=== PATIENT | female | born 1945 | race Caucasian/White ===

== ENCOUNTER 2017-07-21 08:51 | Inpatient (IN) | payer MEDICARE, OTHER ==
[2017-07-21] VITALS (7 sets, daily range): BP systolic 120–155; BP diastolic 74–87; PULSE 66–86; RESP 12–18; TEMP 96.5–98; O2SAT 94–100
[~2017-07-21] VITALS: Ht 170.2 cm; Wt 97.5 kg
[2017-07-21] MEDS ORDERED: APIX2.5T PO (09:28)
[2017-07-21] MEDS ORDERED: FURO40TA PO (09:28)
[2017-07-21] MEDS ORDERED: CARV3.125 PO (09:28)
[2017-07-21] MEDS ORDERED: ATOR10TA15 PO (09:28)
[2017-07-21] MEDS ORDERED: DICY10CA12 PO (09:28)
[2017-07-21] MEDS ORDERED: PROT40TA PO (09:28)
[2017-07-21] MEDS ORDERED: OXYC1CAP PO (09:28)
[2017-07-21] MEDS ORDERED: PLAV75TA29 PO (09:28)
--- NOTE | 2017-07-21 09:42 | PD ---
HPI Chief Complaint: Abdominal Pain Time Seen by Provider: 09:29 Travel History International Travel<30 days: No Contact w/Intl Traveler<30days: No Traveled to known affect area: No History of Present Illness HPI Patient is a 71-year-old female with history of abdominal pain starting in November of this year has presented multiple ERs for similar complaints, she just bent and axis of 2 weeks admitted at an outside hospital for same, had CAT scan of her abdomen hypotension required to stay in the ICU. She left the hospital on the , her states that her abdominal become more distended and she's had cramping no diarrhea nausea without vomiting and now starting to radiate up her chest which is her normal progression of symptoms. 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 This makes communication difficult , she does describe the pain as all over, severe, context as above, gradually worsening. Of note the patient had CAT scan her last admission causing acute kidney injury according to the . PFSH Past Medical History Hx Anticoagulant Therapy: Yes Congestive Heart Failure: Yes Diabetes: Yes Patient Takes Glucophage: Yes Deep Vein Thrombosis: Yes Genitourinary: Yes (Acute kidney failure) Medical other: Yes (Legally blind and [place]) Myocardial Infarction: Yes Triglycerides - High: Yes ?: Not Social History Alcohol Use: No Tobacco Use: No Substance Use: No Allergies-Medications (Allergen,Severity, Reaction): Coded Allergies: aspirin (Verified Allergy, Intermediate, hives, 07/21/17) Iodinated Contrast- Oral and IV Dye (Verified Adverse Reaction, Severe, kidney failure, 07/21/17) Reported Meds & Prescriptions Reported Meds & Active Scripts Active Reported Plavix (Clopidogrel Bisulfate) 75 Mg Tab 75 Mg PO DAILY Oxycodone (Oxycodone HCl) 5 Mg Cap 5 Mg PO Q8H PRN Protonix (Pantoprazole Sodium) 40 Mg Tab 40 Mg PO DAILY Furosemide 40 Mg Tab 40 Mg PO DAILY Dicyclomine (Dicyclomine HCl) 10 Mg Cap 10 Mg PO TID PRN Coreg (Carvedilol) 3.125 Mg Tab 3.125 Mg PO BID Atorvastatin (Atorvastatin Calcium) 10 Mg Tab 10 Mg PO HS Eliquis (Apixaban) 2.5 Mg Tab 2.5 Mg PO BID Review of Systems Except as stated in HPI: all other systems reviewed are Neg Physical Exam Narrative GENERAL: Well-developed obese, pale, uncomfortable appearance. Very hard of hearing and blind. SKIN: Focused skin assessment warm/dry. HEAD: Atraumatic. Normocephalic. EYES: Pupils equal and round dilated to about 6 mL. No scleral icterus. No injection or drainage. ENT: No nasal bleeding or discharge. Mucous membranes pink and moist. NECK: Trachea midline. No JVD. CARDIOVASCULAR: Regular rate and rhythm. No murmur appreciated. RESPIRATORY: No accessory muscle use. Clear to auscultation. Breath sounds equal bilaterally. No rales wheezes or rhonchi. GASTROINTESTINAL: Abdomen soft, non-tender, nondistended. Hepatic and splenic margins not palpable. MUSCULOSKELETAL: No obvious deformities. No clubbing. No cyanosis. 2+ pitting edema bilateral lower extremities from the knees distally. NEUROLOGICAL: Awake and alert. No obvious cranial nerve deficits. Motor grossly within normal limits. Normal speech. PSYCHIATRIC: Appropriate mood and affect; insight and judgment normal. Data Data Last Documented VS Vital Signs Date Time Temp Pulse Resp B/P (MAP) Pulse Ox O2 Delivery O2 Flow Rate FiO2 07/21/17 10:16 79 18 120/87 (98) 99 Room Air 07/21/17 08:56 98.0 Orders Orders Complete Blood Count With Diff (07/21/17 09:37) Comprehensive Metabolic Panel (07/21/17 09:37) Lipase (07/21/17 09:37) Lactic Acid (07/21/17 09:37) Urinalysis - C+S If Indicated (07/21/17 09:37) Iv Access Insert/Monitor (07/21/17 09:37) Ecg Monitoring (07/21/17 09:37) Oximetry (07/21/17 09:37) Sodium Chloride 0.9% Flush (Ns Flush) (07/21/17 09:45) Electrocardiogram (07/21/17 09:37) Troponin I (07/21/17 09:37) Act Partial Throm Time (Ptt) (07/21/17 09:37) Prothrombin Time / Inr (Pt) (07/21/17 09:37) Ed Poc Ultrasound (07/21/17 ) Ondansetron Inj (Zofran Inj) (07/21/17 10:00) Morphine Inj (Morphine Inj) (07/21/17 10:00) Urine Culture (07/21/17 10:11) Ct Abd/Pel W/O Iv Contrast (07/21/17 ) Chest, Single Ap (07/21/17 ) Admit To Inpatient (07/21/17 ) Vital Signs (Adult) ALEXIS.Q4H (07/21/17 12:57) Activity Bed Rest (07/21/17 12:57) Intake + Output 06,14,22 (07/21/17 12:57) Diet Npo (07/21/17 Lunch) Inpatient Certification (07/21/17 ) Ct Abd/Pel W Iv Contrast(Rout) (07/21/17 ) Sodium Chlorid 0.9% 500 Ml Inj (Ns 500 M (07/21/17 13:15) Iodixanol 320 Inj (Rad Ct) (Visipaque 32 (07/21/17 13:43) Consult Vascular Surgery (07/21/17 ) Admit Order (Ed Use Only) (07/21/17 ) Labs Laboratory Tests Test 07/21/17 09:46 07/21/17 10:11 White Blood Count 8.2 TH/MM3 Red Blood Count 3.40 MIL/MM3 Hemoglobin 11.2 GM/DL Hematocrit 34.1 % Mean Corpuscular Volume 100.4 FL Mean Corpuscular Hemoglobin 33.0 PG Mean Corpuscular Hemoglobin Concent 32.9 % Red Cell Distribution Width 22.3 % Platelet Count 394 TH/MM3 Mean Platelet Volume 9.1 FL Neutrophils (%) (Auto) 73.1 % Lymphocytes (%) (Auto) 14.5 % Monocytes (%) (Auto) 9.3 % Eosinophils (%) (Auto) 1.8 % Basophils (%) (Auto) 1.3 % Neutrophils # (Auto) 6.0 TH/MM3 Lymphocytes # (Auto) 1.2 TH/MM3 Monocytes # (Auto) 0.8 TH/MM3 Eosinophils # (Auto) 0.1 TH/MM3 Basophils # (Auto) 0.1 TH/MM3 CBC Comment DIFF FINAL Differential Comment Prothrombin Time 17.8 SEC Prothromb Time International Ratio 1.8 RATIO Activated Partial Thromboplast Time 35.5 SEC Blood Urea Nitrogen 26 MG/DL Creatinine 1.40 MG/DL Random Glucose 128 MG/DL Total Protein 7.2 GM/DL Albumin 3.4 GM/DL Calcium Level 8.9 MG/DL Alkaline Phosphatase 316 U/L Aspartate Amino Transf (AST/SGOT) 44 U/L Alanine Aminotransferase (ALT/SGPT) 112 U/L Total Bilirubin 1.2 MG/DL Sodium Level 138 MEQ/L Potassium Level 3.7 MEQ/L Chloride Level 101 MEQ/L Carbon Dioxide Level 24.9 MEQ/L Anion Gap 12 MEQ/L Estimat Glomerular Filtration Rate 37 ML/MIN Lactic Acid Level 2.5 mmol/L Troponin I 0.14 NG/ML Lipase 171 U/L Urine Color YELLOW Urine Turbidity HAZY Urine pH 5.0 Urine Specific [place] 1.012 Urine Protein TRACE mg/dL Urine Glucose (UA) NEG mg/dL Urine Ketones NEG mg/dL Urine Occult Blood NEG Urine Nitrite NEG Urine Bilirubin NEG Urine Urobilinogen LESS THAN 2.0 MG/DL Urine Leukocyte Esterase LARGE Urine RBC 1 /hpf Urine WBC 8 /hpf Urine WBC Clumps OCC Urine Squamous Epithelial Cells 2 /hpf Urine Transitional Epithelial Cells 1 /hpf Urine Amorphous Sediment OCC Urine Bacteria OCC /hpf Urine Hyaline Casts 27 /lpf Urine Mucus FEW /lpf Urine Yeast (Budding) FEW Microscopic Urinalysis Comment CULTURE INDICATED MDM Medical Decision Making Medical Screen Exam Complete: Yes Emergency Medical Condition: Yes Differential Diagnosis Ischemic bowel, chronic failure to thrive, chronic malnourishment, anemia, urinary tract infection, lecture led abnormality, dehydration, CHF. Narrative Course Patient roomed in emergency department, has never been our facility before, my initial impression this patient is a chronically ill patient, appears pale but is only mildly anemic, after morphine given some of her color has returned to her face and she appears more comfortable. The patient was sent for a noncontrast CT given the past she had contrast leading to acute kidney. Lactic acid minimally elevated the patient does need exclusion of vascular compromise to her mesentery, discussed with Dr. 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 At the same time her records from [facility] where also showing stenosis of the celiac artery was not amenable to additional intervention the patient was started on Eliquis. 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 If she is not a candidate for any aggressive intervention the patient may be a hospice candidate in the near future. This was discussed with Dr. Ceron who is in agreement and will be admitted to Dr. Buitrago. The patient was also discussed briefly with Dr. washington for his consultation likely there will be no surgical intervention. The patient will be admitted to [facility] in fair condition. Other significant findings were a troponin elevated at 2.17, nonischemic EKG, the patient is on Eliquis and is allergic to aspirin indicating any additional medications for possible and STEMI at this time. The review the records from outside sources does show the patient was admitted for NSTEMI there as well. Diagnosis Primary Impression: NSTEMI (non-ST elevated myocardial infarction) Additional Impressions: Celiac artery stenosis Abdominal pain CKD (chronic kidney disease) Anemia CHF (congestive heart failure) Admitting Information Admitting Physician Requests: Admit Condition: Amadeo Mendoza MD Jul 21, 2017 09:41
[2017-07-21] MEDS ORDERED: SODIUM CHLORIDE 0.9% FLUSH 10 ML FLUSH IV FLUSH PRN (09:45)
[2017-07-21] MEDS ORDERED: MORPHINE SULFATE 2 MG/ML INJ IV PUSH ONE (10:00)
[2017-07-21] MEDS ORDERED: ONDANSETRON HCL 4 MG/2 ML VIAL IV PUSH ONE (10:00)
[2017-07-21 10:02] LABS: BASOPHIL # 0.1 TH/MM3 (0-0.2); BASOPHIL % 1.3 % (0.0-2.0); EOSINOPHIL # 0.1 TH/MM3 (0-0.4); EOSINOPHIL % 1.8 % (0.0-4.0); HEMATOCRIT 34.1 % (35.0-46.0); HEMOGLOBIN 11.2 GM/DL (11.6-15.3); LYMPH % 14.5 % (9.0-44.0); LYMPHOCYTE # 1.2 TH/MM3 (1.0-4.8); MEAN CELL VOLUME 100.4 FL (80.0-100.0); MEAN CORPUSCULAR HGB CONC 32.9 % (32.0-36.0); MEAN PLATELET VOLUME 9.1 FL (7.0-11.0); MONO % 9.3 % (0.0-8.0); MONOCYTE # 0.8 TH/MM3 (0-0.9); NEUT % 73.1 % (16.0-70.0); PLATELET COUNT 394 TH/MM3 (150-450); RED CELL DISTRIBUTION WIDTH 22.3 % (11.6-17.2); WHITE BLOOD COUNT 8.2 TH/MM3 (4.0-11.0)
[2017-07-21 10:11] LABS: INTERNATIONAL NORMALIZED RATIO 1.8 RATIO; PROTHROMBIN TIME - PATIENT 17.8 SEC (9.8-11.6)
[2017-07-21 10:19] LABS: ALBUMIN 3.4 GM/DL (3.4-5.0); AST (GOT) 44 U/L (15-37); BICARBONATE 24.9 MEQ/L (21.0-32.0); BLOOD UREA NITROGEN 26 MG/DL (7-18); CALCIUM 8.9 MG/DL (8.5-10.1); CHLORIDE 101 MEQ/L (98-107); GLOMERULAR FILTRATION RATE 37 ML/MIN (>89); GLUCOSE,RANDOM 128 MG/DL (74-106); LIPASE 171 U/L (73-393); SODIUM (NA) 138 MEQ/L (136-145)
[2017-07-21 10:24] LABS: ALKALINE PHOSPHATASE 316 U/L (45-117); ALT (GPT) 112 U/L (10-53); TOTAL BILIRUBIN ADULT 1.2 MG/DL (0.2-1.0); TOTAL PROTEIN 7.2 GM/DL (6.4-8.2); TROPONIN I 0.14 NG/ML (0.02-0.05)
[2017-07-21 10:27] LABS: AMORPHOUS SEDIMENT, URINE OCC; BACTERIA, URINE OCC /hpf; BILIRUBIN, URINE NEG (NEG); BLOOD, URINE NEG (NEG); GLUCOSE,URINE NEG (NEG); HYALINE CAST, URINE 27 /lpf (RARE); KETONE, URINE NEG (NEG); MUCUS URINE FEW /lpf (OCC); NITRITE,URINE NEG (NEG); SQUAMOUS EPITHELIAL CELL URINE 2 /hpf (0-5); TRANSITIONAL EPI CELLS, URINE 1 /hpf; URINE COLOR YELLOW (YELLW/STRAW); URINE LEUKOCYTE ESTERASE LARGE (NEG); WHITE BLOOD CELL CLUMPS OCC
--- NOTE | 2017-07-21 11:51 | RADRPT ---
EXAM DATE/TIME: 07/21/2017 11:36 [facility] COMPARISON: No previous studies available for comparison. INDICATIONS : Abdominal pain. ORAL CONTRAST: No oral contrast ingested. RADIATION DOSE: 16.29 CTDIvol (mGy) MEDICAL HISTORY : Congestive heart failure. Diabetes mellitus type 2. SURGICAL HISTORY : None. ENCOUNTER: Initial ACUITY: 1 day PAIN SCALE: 8/10 LOCATION: abdomen TECHNIQUE: Volumetric scanning of the abdomen and pelvis was performed. Using automated exposure control and ad justment of the mA and/or kV according to patient size, radiation dose was kept as low as reasonably achievable to obtain optimal diagnostic quality images. DICOM format image data is available electro nically for review and comparison. FINDINGS: Minimal bibasilar parenchymal changes are evident. There is cardiomegaly moderate coronary calcifica tions. The liver and gallbladder are unremarkable Pancreas appears normal Right leg venogram is unremarkable There are no renal stones Moderate vascular chest lesions are noted There is no ascites or adenopathy Large fibroid uterus is evident. Pelvic contents are otherwise unremarkable. Moderate degenerative changes lower lumbar spine. CONCLUSION: Cardiomegaly with moderate coronary calcifications Moderate atherosclerotic vascular disease Otherwise negative.. Maximino Moy MD FACR on July 21, 2017 at 11:48 Board Certified Radiologist. This report was verified electronically.
--- NOTE | 2017-07-21 12:36 | RADRPT ---
EXAM DATE/TIME: 07/21/2017 11:57 [facility] COMPARISON: No previous studies available for comparison. INDICATIONS : Chest pain. MEDICAL HISTORY : Congestive heart failure. Diabetes mellitus type 2. SURGICAL HISTORY : None. ENCOUNTER: Initial ACUITY: 1 day PAIN SCORE: 5/10 LOCATION: Bilateral chest FINDINGS: Underated with elevation right hemidiaphragm. Bibasilar parenchymal changes. Mild cardiomegaly with out failure. CONCLUSION: Underated, of compensated cardiomegaly. Maximino Moy MD FACR on July 21, 2017 at 12:34 Board Certified Radiologist. This report was verified electronically.
[2017-07-21] MEDS ORDERED: SODIUM CHLORID 0.9% 500 ML INJ 500 ML IV ONE (13:15)
[2017-07-21] MEDS ORDERED: IODIXANOL 320 MG/ML 10 ML VIAL (for Rad CT) IVCONTRAST ONE (13:43)
--- NOTE | 2017-07-21 14:38 | RADRPT ---
EXAM DATE/TIME: 07/21/2017 13:31 [facility] COMPARISON: No previous studies available for comparison. INDICATIONS : Abdominal pain. IV CONTRAST: 50 cc Visipaque (iodixanol) IV ORAL CONTRAST: No oral contrast ingested. RADIATION DOSE: 20.45 CTDIvol (mGy) ; Patient body habitus MEDICAL HISTORY : Cardiovascular disease. Diabetes mellitus type 2. SURGICAL HISTORY : None. ENCOUNTER: Subsequent ACUITY: 1 day PAIN SCALE: 5/10 LOCATION: abdomen TECHNIQUE: Volumetric scanning of the abdomen and pelvis was performed. Using automated exposure control and ad justment of the mA and/or kV according to patient size, radiation dose was kept as low as reasonably achievable to obtain optimal diagnostic quality images. DICOM format image data is available electro nically for review and comparison. FINDINGS: There is cardiomegaly and moderate coronary calcifications. Small bilateral pleural effusions are ev ident. The liver and spleen are unremarkable Pancreas appears normal Extensive vascular calcifications are evident with high-grade stenosis origin of the celiac. The SMA is patent. Mild atherosclerotic disease is seen in the distal branches of the SMA but I can see vas cular contrast into the distal mesentery. There is no mesenteric edema. There is no bowel wall edema. There is no pneumatosis. Moderate calcifications are seen origin of both right and left renal arteries There is no free fluid Fibroid uterus is evident Generalized anasarca is noted. Degenerative changes lower lumbar spine. CONCLUSION: High-grade stenosis origin of the celiac SMA widely patent. Good distal flow. Bilateral renal origin calcifications, borderline significant borderline significant. Cardiomegaly with trace pericardial effusions Generalized anasarca. Congestive failure would be consideration. Maximino Moy MD FACR on July 21, 2017 at 14:34 Board Certified Radiologist. This report was verified electronically.
[2017-07-21] MEDS ORDERED: GLUCAGON 1 MG/ML VIAL OTHER PRN (15:45)
[2017-07-21] MEDS ORDERED: DEXTROSE 50% IN WATER 50 ML VIAL(D50) IV PUSH PRN (15:45)
[2017-07-21] MEDS ORDERED: ACETAMINOPHEN/HYDROcodone 325 MG/5 MG TAB PO PRN (16:00)
--- NOTE | 2017-07-21 16:00 | HHI.HP ---
[facility] Service Family Medicine Primary Care Physician Lorenzo Oviedo MD Admission Diagnosis NSTEMI, CP, Abdominal pain. Diagnoses: International Travel<30 Days: No Contact w/Intl Traveler<30days: No Known Affected Area: No History of Present Illness Mrs. Melton is a 71-year-old white female with a PMH of CAD, DVT, CHF presenting with abdominal pain of a few years duration. She states that this started a few years ago. She was previously diagnosed with gastritis and indigestion. He describes his pain as a 10 out of 10 pain that feels like someone is twisting her insides that is located over her whole abdomen and radiates to her chest and down both arms. It is worse after eating only dinner and lasted throughout the night. It was made better with the medication that she had gotten in the ED. She tried to take Gaviscon and Carafate at home, but they did not work. Last night is the only time that it radiated into her chest. No vomiting but has nausea. She has not seen a GI doctor for her chronic abdominal pain. Of note, (per discharge summary) she was recently discharged from [facility] on 07/17 after a 17 day stay. There she had presented with abdominal pain and shortness of breath and found to have troponin elevation, acute on chronic renal failure, hyperkalemia, non-ST elevation SD. Initial CT also revealed peripheral vascular disease with severe stenosis of proximal celiac artery, but other arteries are patent. She also had an acute decompensated CHF, non-ST elevation SD. She required dialysis in view of progressive renal failure and hyperkalemia. She was evaluated by GI for her ongoing abdominal pain and she was found to have a gallstone. No intervention was done at that time and she was to follow-up as an outpatient. She was also noticed to have increased LFTs. She started on statin that was DC'd and then put on a lower dose. They also believe that the increased LFT could be secondary to hepatic congestion. She was put on Plavix and Eliquis for severe peripheral vascular disease and greater saphenous thrombosis. 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, left arm CHF-does not see a functional manager Diabetes Cataracts Kidney injury from iodinated contrast Past Surgical History Cataract removal Retinal surgery 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 foot in August 2016 Left lower extremity vascular angioplasty and stent placement Reported Medications Reported Meds & Active Scripts Active Reported Plavix (Clopidogrel Bisulfate) 75 Mg Tab 75 Mg PO DAILY Oxycodone (Oxycodone HCl) 5 Mg Cap 5 Mg PO Q8H PRN Protonix (Pantoprazole Sodium) 40 Mg Tab 40 Mg PO DAILY Furosemide 40 Mg Tab 40 Mg PO DAILY Dicyclomine (Dicyclomine HCl) 10 Mg Cap 10 Mg PO TID PRN Coreg (Carvedilol) 3.125 Mg Tab 3.125 Mg PO BID Atorvastatin (Atorvastatin Calcium) 10 Mg Tab 10 Mg PO HS Eliquis (Apixaban) 2.5 Mg Tab 2.5 Mg PO BID (Marysol Patino MD R1) Allergies: Coded Allergies: aspirin (Verified Allergy, Intermediate, hives, 07/21/17) Iodinated Contrast- Oral and IV Dye (Verified Adverse Reaction, Severe, kidney failure, 07/21/17) Family History No family history relevant to this hospital stay Social History Lives with and daughter in [place], [place] 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 SKIN: No rashes or lesions. Ecchymoses on bilateral antecubital areas of arms and RLQ of abdomen. Cool and dry. HEAD: Atraumatic. Normocephalic. EYES: Pupils not equal round and not reactive. Extraocular motions intact. No scleral icterus. No injection or drainage. ENT: Nose without bleeding, purulent drainage or septal hematoma. Throat without erythema, tonsillar hypertrophy or exudate. Uvula midline. Airway patent. NECK: Trachea midline. No JVD or lymphadenopathy. Supple, nontender, no meningeal signs. CARDIOVASCULAR: distant heart sounds. Regular rate and rhythm without murmurs, gallops, or rubs. RESPIRATORY: Clear to auscultation. Breath sounds equal bilaterally. No wheezes , rales, or rhonchi. GASTROINTESTINAL: Abdomen soft, non-tender, nondistended. Normoactive bowel sounds. No hepato-splenomegaly, or palpable masses. No guarding. MUSCULOSKELETAL: Extremities without clubbing, cyanosis. 2+ pitting edema to bilateral mid shins. No joint tenderness, effusion, or edema noted. Toes amputated on left foot. Bilateral feet are cold to the touch. No pulses are palpable. NEUROLOGICAL: Drowsy, but arouses. Motor and sensory grossly within normal limits. Normal speech. Laboratory Laboratory Tests Test 07/21/17 09:46 07/21/17 10:11 White Blood Count 8.2 Red Blood Count 3.40 Hemoglobin 11.2 Hematocrit 34.1 Mean Corpuscular Volume 100.4 Mean Corpuscular Hemoglobin 33.0 Mean Corpuscular Hemoglobin Concent 32.9 Red Cell Distribution Width 22.3 Platelet Count 394 Mean Platelet Volume 9.1 Neutrophils (%) (Auto) 73.1 Lymphocytes (%) (Auto) 14.5 Monocytes (%) (Auto) 9.3 Eosinophils (%) (Auto) 1.8 Basophils (%) (Auto) 1.3 Neutrophils # (Auto) 6.0 Lymphocytes # (Auto) 1.2 Monocytes # (Auto) 0.8 Eosinophils # (Auto) 0.1 Basophils # (Auto) 0.1 CBC Comment DIFF FINAL Differential Comment Prothrombin Time 17.8 Prothromb Time International Ratio 1.8 Activated Partial Thromboplast Time 35.5 Blood Urea Nitrogen 26 Creatinine 1.40 Random Glucose 128 Total Protein 7.2 Albumin 3.4 Calcium Level 8.9 Alkaline Phosphatase 316 Aspartate Amino Transf (AST/SGOT) 44 Alanine Aminotransferase (ALT/SGPT) 112 Total Bilirubin 1.2 Sodium Level 138 Potassium Level 3.7 Chloride Level 101 Carbon Dioxide Level 24.9 Anion Gap 12 Estimat Glomerular Filtration Rate 37 Lactic Acid Level 2.5 Troponin I 0.14 Lipase 171 Urine Color YELLOW Urine Turbidity HAZY Urine pH 5.0 Urine Specific [place] 1.012 Urine Protein TRACE Urine Glucose (UA) NEG Urine Ketones NEG Urine Occult Blood NEG Urine Nitrite NEG Urine Bilirubin NEG Urine Urobilinogen LESS THAN 2.0 Urine Leukocyte Esterase LARGE Urine RBC 1 Urine WBC 8 Urine WBC Clumps OCC Urine Squamous Epithelial Cells 2 Urine Transitional Epithelial Cells 1 Urine Amorphous Sediment OCC Urine Bacteria OCC Urine Hyaline Casts 27 Urine Mucus FEW Urine Yeast (Budding) FEW Microscopic Urinalysis Comment CULTURE INDICATED Date/Time Source Procedure Growth Status 07/21/17 10:11 Urine Clean Catch Urine Culture Pending Received (Marysol Patino MD R1) Result Diagram: 07/21/17 0946 07/21/17 0946 Imaging Last 24 hours Impressions Chest X-Ray 07/21/17 0000 Signed Impressions: Service Date/Time: Friday, July 21, 2017 11:57 - CONCLUSION: Underated, of compensated cardiomegaly. Maximion Moy MD FACR Abdomen/Pelvis CT 07/21/17 0000 Signed Impressions: Service Date/Time: Friday, July 21, 2017 13:31 - CONCLUSION: High-grade stenosis origin of the celiac SMA widely patent. Good distal flow. Bilateral renal origin calcifications, borderline significant borderline significant. Cardiomegaly with trace pericardial effusions Generalized anasarca. Congestive failure would be consideration. Maximino Moy MD FACR Abdomen/Pelvis CT 07/21/17 0000 Signed Impressions: Service Date/Time: Friday, July 21, 2017 11:36 - CONCLUSION: Cardiomegaly with moderate coronary calcifications Moderate atherosclerotic vascular disease Otherwise negative.. Maximino Moy MD FACR (Marysol Patino MD R1) Caprini VTE Risk Assessment Caprini VTE Risk Assessment: Mod/High Risk (score >= 2) Caprini Risk Assessment Model Point Value = 1 Point Value = 2 Point Value = 3 Point Value = 5 Age 41-60 Minor surgery BMI > 25 kg/m2 Swollen legs Varicose veins or History of unexplained or recurrent spontaneous Oral contraceptives or hormone replacement Sepsis (< 1 month) Serious lung disease, including pneumonia (< 1 month) Abnormal pulmonary function Acute myocardial infarction Congestive heart failure (< 1 month) History of inflammatory bowel disease Medical patient at bed rest Age 61-74 Arthroscopic surgery Major open surgery (> 45 min) Laparoscopic surgery (> 45 min) Malignancy Confined to bed (> 72 hours) Immobilizing plaster cast Central venous access Age >= 75 History of VTE Family history of VTE Factor V Leiden Prothrombin [id number] Lupus anticoagulant Anticardiolipin antibodies Elevated serum homocysteine Heparin-induced thrombocytopenia Other congenital or acquired thrombophilia Stroke (< 1 month) Elective arthroplasty Hip, pelvis, or leg fracture Acute spinal cord injury (< 1 month) Prophylaxis Regimen Total Risk Factor Score Risk Level Prophylaxis Regimen 0-1 Low Early ambulation 2 Moderate Order ONE of the following: *Sequential Compression Device (SCD) *Heparin 5000 units SQ BID 3-4 Higher Order ONE of the following medications: *Heparin 5000 units SQ TID *Enoxaparin/Lovenox 40 mg SQ daily (WT < 150 kg, CrCl > 30 mL/min) *Enoxaparin/Lovenox 30 mg SQ daily (WT < 150 kg, CrCl > 10-29 mL/min) *Enoxaparin/Lovenox 30 mg SQ BID (WT < 150 kg, CrCl > 30 mL/min) AND/OR *Sequential Compression Device (SCD) 5 or more Highest Order ONE of the following medications: *Heparin 5000 units SQ TID (Preferred with Epidurals) *Enoxaparin/Lovenox 40 mg SQ daily (WT < 150 kg, CrCl > 30 mL/min) *Enoxaparin/Lovenox 30 mg SQ daily (WT < 150 kg, CrCl > 10-29 mL/min) *Enoxaparin/Lovenox 30 mg SQ BID (WT < 150 kg, CrCl > 30 mL/min) AND *Sequential Compression Device (SCD) (Marysol Patino MD R1) Assessment and Plan Assessment and Plan 71-year-old white female with past medical history of CHF as, peripheral artery disease, DVTs presenting with abdominal pain. Admitted for workup. Code Status Full code Discussed Condition With Dr. Ceron (Marysol Patino MD R1) Attending Attestation THIS CASE WAS DISCUSSED WITH THE RESIDENT PHYSICIANS. I HAVE REVIEWED THE RECORD AND AGREE WITH THE ABOVE NOTE AND PLAN OF CARE WAS DISCUSSED. I HAVE AUTHORIZED THE ORDER FOR ADMISSION TO AN IN-PATIENT STATUS. (Romario Babb MD) Problem List: (1) Abdominal pain ICD Codes: R10.9 - Unspecified abdominal pain Status: Chronic Plan: Abdominal pain appears duration. Patient was that most with a gallstone on previous admission to [facility], but was not found on CT during this stay. CTA on 07/21 shows high-grade stenosis origin of the celiac. SMA widely patent. 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 However, now has resolved. Patient had an NSTEMI at previous hospital admission at [facility] on 06/30/17. Elevated troponins may be residual from that stay. Troponin at admission is 0.14. EKG on admission shows sinus rhythm with borderline right axis deviation. Possible anterior myocardial infarction. Chest pain has resolved. * Continue to trend troponin 2 along with coinciding EKGs * Continue to monitor for any further signs of chest pain (4) UTI (urinary tract infection) ICD Codes: N39.0 - Urinary tract infection, site not specified Status: Acute Plan: UA on admission shows large leukocyte esterase, WBCs, WBC clumps, and occasional bacteria. * Urine culture pending * Will start on IV Rocephin 1 g daily (5) CHF (congestive heart failure) ICD Codes: I50.9 - Heart failure, unspecified Status: Chronic Plan: Patient received an echocardiogram at previous admission at [facility] on 06/30. Findings were severely decreased left ventricular systolic function. Estimated ejection fraction is 25-30%. BNP on admission 07/21 is 4958. * Repeat echocardiogram * Trend BNP * Continue home medication of carvedilol, furosemide, and atorvastatin (6) DVT (deep venous thrombosis) ICD Codes: I82.409 - Acute embolism and thrombosis of unspecified deep veins of unspecified lower extremity Plan: Patient with previously found greater saphenous vein thrombosis near deep vein junction. He has has been also states that she has blood clots in her left arm and right leg. * Continue at home Eliquis (7) Elevated LFTs ICD Codes: R79.89 - Other specified abnormal findings of blood chemistry Plan: Pt also had elevated LFTs at previous admission at [facility] on 06/30 thought to be due to her statin and therefore decreased the dose. Also thought that it could've been due to hepatic congestion. Her celiac artery stenosis may also cause her elevated LFTs due to the celiac trunk leading into the common hepatic artery. * Continue her decreased dose of atorvastatin at 10 mg * Trend LFTs (8) CKD (chronic kidney disease) ICD Codes: N18.9 - Chronic kidney disease, unspecified Status: Chronic Plan: Creatinine at admission is 1.4. At previous hospital stay at [facility] patient had to be on hemodialysis due to kidney injury from IV contrast. * Renally dose medications (9) Anemia ICD Codes: D64.9 - Anemia, unspecified Status: Chronic Plan: Upon admission patient's hemoglobin is 11.2, slightly below normal limits. Patient also shows macrocytosis with MCV at 100.4. * Continue to monitor (10) FEN Status: Acute Plan: Fluids: tolerating PO Electrolytes: monitor and replete as needed Nutrition: Clear liquid diet DVT Prophylaxis: Early ambulation. Continue at home Eliquis GI Prophylaxis: Pantoprazole Pain management: Renault 325-5 for Pain 3-5, [place] 325-10 for Pain 6-10 (Marysol Patino MD R1) Physician Certification 2 Midnight Certification Type: Admission for Inpatient Services Order for Inpatient Services The services are ordered in accordance with Medicare regulations or non- Medicare payer requirements, as applicable. In the case of services not specified as inpatient-only, they are appropriately provided as inpatient services in accordance with the 2-midnight benchmark. Estimated LOS (days): 2 days is the estimated time the patient will need to remain in the hospital, assuming treatment plan goals are met and no additional complications. Post-Hospital Plan: Home (Marysol Patino MD R1) Problem Qualifiers (1) Abdominal pain: Qualified Codes: R10.84 - Generalized abdominal pain Marysol Patino MD R1 Jul 21, 2017 16:00 Romario Babb MD Jul 23, 2017 09:09
[2017-07-21] MEDS: INSULIN ASPART SUPPLEMENTAL SCALE SQ SCH ×2 (16:21→21:00)
--- NOTE | 2017-07-21 18:21 | EKG ---
Date Performed: 07/21/2017 Time Performed: 09:52:31 PTAGE: 71 years EKG: Sinus rhythm BORDERLINE RIGHT AXIS DEVIATION POSSIBLE ANTERIOR MYOCARDIAL INFARCTION ABNORMAL ECG NO PREVIOUS TRACING DOCTOR: Aracelis Bah Interpretating Date/Time 07/21/2017 18:20:52
[2017-07-21 18:37] LABS: TROPONIN I 0.15 NG/ML (0.02-0.05)
--- NOTE | 2017-07-21 21:08 | EKG ---
Date Performed: 07/21/2017 Time Performed: 18:20:25 PTAGE: 71 years EKG: Sinus rhythm WITH OCCASIONAL ECTOPIC PREMATURE COMPLEXES, LOW QRS VOLTAGE IN EXTREMITY LEADS, POORP R WAVE PROGRE SSION ABNORMAL ECG PREVIOUS TRACING : 07/21/2017 09.52 No significant change from previous tracing noted. DOCTOR: Tutu Wright Interpretating Date/Time 07/21/2017 21:08:16
[2017-07-21] MEDS: APIXABAN 2.5 MG TABLET PO SCH (21:46)
[2017-07-21] MEDS: ATORVASTATIN 10 MG TAB PO SCH (21:46)
[2017-07-21] MEDS: CARVEDILOL 3.125 MG TAB PO SCH (21:46)
[2017-07-21] MEDS: cefTRIAXone INJ 1,000 MG in SODIUM CHLORIDE 0.9% INJ 100 ML IV SCH (21:50)
[2017-07-22] VITALS (13 sets, daily range): BP systolic 110–152; BP diastolic 56–81; PULSE 59–73; RESP 16–20; TEMP 97.2–98.7; O2SAT 94–99
[2017-07-22 00:48] LABS: ALT (GPT) 88 U/L (10-53); AST (GOT) 30 U/L (15-37); BICARBONATE 26.2 MEQ/L (21.0-32.0); BLOOD UREA NITROGEN 26 MG/DL (7-18); CALCIUM 8.3 MG/DL (8.5-10.1); CHLORIDE 104 MEQ/L (98-107); CREATININE 1.12 MG/DL (0.50-1.00); GLOMERULAR FILTRATION RATE 48 ML/MIN (>89); GLUCOSE,RANDOM 100 MG/DL (74-106); SODIUM (NA) 140 MEQ/L (136-145)
[2017-07-22 00:52] LABS: ALKALINE PHOSPHATASE 258 U/L (45-117); TOTAL PROTEIN 6.3 GM/DL (6.4-8.2); TROPONIN I 0.15 NG/ML (0.02-0.05)
[2017-07-22] MEDS ORDERED: POTASSIUM CHLORIDE 25 MEQ EFFERVESCENT TAB PO ONE (07:30)
[2017-07-22 07:40] LABS: HEMATOCRIT 33.6 % (35.0-46.0); HEMOGLOBIN 10.9 GM/DL (11.6-15.3); MEAN CELL VOLUME 99.5 FL (80.0-100.0); MEAN CORPUSCULAR HEMOGLOBIN 32.2 PG (27.0-34.0); MEAN CORPUSCULAR HGB CONC 32.3 % (32.0-36.0); PLATELET COUNT 256 TH/MM3 (150-450); RED BLOOD COUNT 3.38 MIL/MM3 (4.00-5.30); RED CELL DISTRIBUTION WIDTH 22.8 % (11.6-17.2)
[2017-07-22] MEDS: INSULIN ASPART SUPPLEMENTAL SCALE SQ SCH ×4 (08:00→21:10)
--- NOTE | 2017-07-22 08:24 | HHI.FPPN ---
Subjective Remarks FM Attending Note: Patient seen and examined. S: Chart and all resident physician notes reviewed. In summary this is a 71 year old female who was admitted with an admission diagnosis of Nstemi, Cp, Abdominal Pain. This patient has DM, PAD, CAD with recurrent chronic abdominal pain. Found to have celiac artery stenosis with widely patent SMA on CTA of abdomen. Since admission current episode abdominal pain has resolved. Patient was recently discharged from [facility] in [facility]. HHC was ordered but has not yet been established. and daugher with patient; would like for her to be discharged home with HHC when stable. They feel they can manage her functional needs. Family had a bad experience with a SNF in the past. Objective Vitals Vital Signs Date Time Temp Pulse Resp B/P (MAP) Pulse Ox O2 Delivery O2 Flow Rate FiO2 07/22/17 04:00 97.2 65 18 133/63 (86) 99 07/22/17 03:55 64 07/22/17 00:05 59 07/22/17 00:00 97.2 59 16 117/56 (76) 98 07/21/17 20:10 66 07/21/17 20:00 97.3 72 16 126/75 (92) 100 07/21/17 20:00 99 Nasal Cannula 2.00 07/21/17 18:00 96.5 71 12 155/87 (109) 99 07/21/17 14:29 77 18 153/74 (100) 98 Room Air 07/21/17 10:16 79 18 120/87 (98) 99 Room Air 07/21/17 10:03 18 98 Room Air 07/21/17 09:09 18 07/21/17 08:56 98.0 86 14 144/78 (100) 94 I/O 07/21/17 07/21/17 07/21/17 07/22/17 07/22/17 07/22/17 07:00 15:00 23:00 07:00 15:00 23:00 Intake Total 500 ml Output Total 400 ml Balance 500 ml -400 ml Intake IV Total 500 ml Output Urine Total 400 ml # Voids 2 # Bowel Movements 0 Result Diagram: 07/22/17 0700 07/21/172355 Other Results Item Value Date Time Total Bilirubin 1.0 MG/DL 07/21/172355 Aspartate Amino Transf (AST/SGOT) 30 U/L 07/21/17 2356 Alanine Aminotransferase (ALT/SGPT) 88 U/L H 07/21/17 2356 Alkaline Phosphatase 258 U/L H 07/21/17 2356 Total Creatine Kinase 25 U/L L 07/21/17 2356 Troponin I 0.15 NG/ML H 07/21/17 1750 Troponin I 0.15 NG/ML H 07/21/17 2356 Total Creatine Kinase 27 U/L 07/21/17 1750 B-Type Natriuretic Peptide 4958 PG/ML H 07/21/17 0946 Lipase 171 U/L 07/21/17 0946 Urine Specific [place] 1.012 07/21/17 1011 Urine Leukocyte Esterase LARGE H 07/21/17 1011 Urine RBC 1 /hpf 07/21/17 1011 Urine WBC 8 /hpf H 07/21/17 1011 Urine Nitrite NEG 07/21/17 1011 Imaging Last 48 hours Impressions Chest X-Ray 07/21/17 0000 Signed Impressions: Service Date/Time: Friday, July 21, 2017 11:57 - CONCLUSION: Underated, of compensated cardiomegaly. Maximino Moy MD FACR Abdomen/Pelvis CT 07/21/17 0000 Signed Impressions: Service Date/Time: Friday, July 21, 2017 13:31 - CONCLUSION: High-grade stenosis origin of the celiac SMA widely patent. Good distal flow. Bilateral renal origin calcifications, borderline significant borderline significant. Cardiomegaly with trace pericardial effusions Generalized anasarca. Congestive failure would be consideration. Maximino Moy MD FACR Abdomen/Pelvis CT 07/21/17 0000 Signed Impressions: Service Date/Time: Friday, July 21, 2017 11:36 - CONCLUSION: Cardiomegaly with moderate coronary calcifications Moderate atherosclerotic vascular disease Otherwise negative.. Maximino Moy MD FACR Objective Remarks O. CONSTITUTIONAL/GEN: normally nourished with increased BMI, in NAD. NECK: thyroid midline, carotids symmetrical. LUNGS: clear A-P, respiratory effort is normal. CARDIOVASCULAR: RR without murmur or gallop. Trace LE edema. GI/ABD: soft without masses, without organomegaly. : no CVA tenderness NEURO: No focal deficits. SKIN: color normal, no rashes noted. MUSC: back is normal in appearance. Extremities are normal in appearance; previous amputation of all left toes. PSYCH/MENTAL STATUS: Alert and awake; will respond appropriately to verbal questions.. A/P Assessment and Plan 71-year-old white female with past medical history of CHF as, peripheral artery disease, DVTs presenting with abdominal pain. Admitted for workup. Problem List: (1) Abdominal pain ICD Codes: R10.9 - Unspecified abdominal pain Status: Chronic Plan: Abdominal pain appears duration. Patient was that most with a gallstone on previous admission to [facility], but was not found on CT during this stay. CTA on 07/21 shows high-grade stenosis origin of the celiac. SMA widely patent. * Start patient on clear liquid diet, advance as tolerated * Unable to do fluid resuscitation because of patient's CHF * Pain control with [place] * Patient is already on anticoagulation therapy Eliquis, also on Plavix to prevent further thrombus formation * Continue at home pantoprazole 07/22/17 Discussed etiology of pain (ischemia) with patient and family. Limit meal size. Optimal medical therapy for atherosclerotic disease/DM> (2) Celiac artery stenosis ICD Codes: I77.4 - Celiac artery compression syndrome Status: Acute Plan: See plan above (3) NSTEMI (non-ST elevated myocardial infarction) ICD Codes: I21.4 - Non-ST elevation (NSTEMI) myocardial infarction Status: Acute Plan: Patient with chest pain last night into this morning. However, now has resolved. Patient had an NSTEMI at previous hospital admission at [facility] on 06/30/17. Elevated troponins may be residual from that stay. Troponin at admission is 0.14. EKG on admission shows sinus rhythm with borderline right axis deviation. Possible anterior myocardial infarction. Chest pain has resolved. * Continue to trend troponin 2 along with coinciding EKGs * Continue to monitor for any further signs of chest pain (4) UTI (urinary tract infection) ICD Codes: N39.0 - Urinary tract infection, site not specified Status: Acute Plan: UA on admission shows large leukocyte esterase, WBCs, WBC clumps, and occasional bacteria. * Urine culture pending * Will start on IV Rocephin 1 g daily (5) CHF (congestive heart failure) ICD Codes: I50.9 - Heart failure, unspecified Status: Chronic Plan: Patient received an echocardiogram at previous admission at [facility] on 06/30. Findings were severely decreased left ventricular systolic function. Estimated ejection fraction is 25-30%. BNP on admission 07/21 is 4958. * Repeat echocardiogram * Trend BNP * Continue home medication of carvedilol, furosemide, and atorvastatin (6) DVT (deep venous thrombosis) ICD Codes: I82.409 - Acute embolism and thrombosis of unspecified deep veins of unspecified lower extremity Plan: Patient with previously found greater saphenous vein thrombosis near deep vein junction. He has has been also states that she has blood clots in her left arm and right leg. * Continue at home Eliquis (7) Elevated LFTs ICD Codes: R79.89 - Other specified abnormal findings of blood chemistry Plan: Pt also had elevated LFTs at previous admission at [facility] on 06/30 thought to be due to her statin and therefore decreased the dose. Also thought that it could've been due to hepatic congestion. Her celiac artery stenosis may also cause her elevated LFTs due to the celiac trunk leading into the common hepatic artery. * Continue her decreased dose of atorvastatin at 10 mg * Trend LFTs (8) CKD (chronic kidney disease) ICD Codes: N18.9 - Chronic kidney disease, unspecified Status: Chronic Plan: Creatinine at admission is 1.4. At previous hospital stay at [facility] patient had to be on hemodialysis due to kidney injury from IV contrast. * Renally dose medications (9) Anemia ICD Codes: D64.9 - Anemia, unspecified Status: Chronic Plan: Upon admission patient's hemoglobin is 11.2, slightly below normal limits. Patient also shows macrocytosis with MCV at 100.4. * Continue to monitor (10) FEN Status: Acute Plan: Fluids: tolerating PO Electrolytes: monitor and replete as needed Nutrition: Clear liquid diet DVT Prophylaxis: Early ambulation. Continue at home Eliquis GI Prophylaxis: Pantoprazole Pain management: [place] 325-5 for Pain 3-5, [place] 325-10 for Pain 6-10 Problem Qualifiers (1) Abdominal pain: Qualified Codes: R10.84 - Generalized abdominal pain Romario Babb MD Jul 22, 2017 08:24
[2017-07-22] MEDS: FUROSEMIDE 40 MG TAB PO SCH (09:44)
[2017-07-22] MEDS: APIXABAN 2.5 MG TABLET PO SCH ×2 (09:44→21:08)
[2017-07-22] MEDS: CARVEDILOL 3.125 MG TAB PO SCH ×2 (09:44→21:09)
[2017-07-22] MEDS: CLOPIDOGREL 75 MG TAB PO SCH (09:45)
[2017-07-22] MEDS: PANTOPRAZOLE SOD 40 MG DELAYED RELEASE TAB PO SCH (09:45)
--- NOTE | 2017-07-22 12:08 | PD.CAR.PN ---
CVT Progress Note Subjective/Hospital Course: Patient seen full consult dictated Thanks J Objective: Vital Signs Date Time Temp Pulse Resp B/P (MAP) Pulse Ox O2 Delivery O2 Flow Rate FiO2 07/22/17 08:06 97.2 71 20 140/81 (100) 99 07/22/17 04:00 97.2 65 18 133/63 (86) 99 07/22/17 03:55 64 07/22/17 00:05 59 07/22/17 00:00 97.2 59 16 117/56 (76) 98 07/21/17 20:10 66 07/21/17 20:00 97.3 72 16 126/75 (92) 100 07/21/17 20:00 99 Nasal Cannula 2.00 07/21/17 18:00 96.5 71 12 155/87 (109) 99 07/21/17 14:29 77 18 153/74 (100) 98 Room Air Labs: Laboratory Tests Test 07/22/17 07:00 White Blood Count 7.0 TH/MM3 (4.0-11.0) Red Blood Count 3.38 MIL/MM3 (4.00-5.30) Hemoglobin 10.9 GM/DL (11.6-15.3) Hematocrit 33.6 % (35.0-46.0) Mean Corpuscular Volume 99.5 FL (80.0-100.0) Mean Corpuscular Hemoglobin 32.2 PG (27.0-34.0) Mean Corpuscular Hemoglobin Concent 32.3 % (32.0-36.0) Red Cell Distribution Width 22.8 % (11.6-17.2) Platelet Count 256 TH/MM3 (150-450) Mean Platelet Volume 9.0 FL (7.0-11.0) Hematology Comments B-Type Natriuretic Peptide 902 PG/ML (0-100) Result Diagram: 07/22/17 0700 07/21/17 2356 Jesus Blackwell MD Jul 22, 2017 12:08
--- NOTE | 2017-07-22 12:25 | MB ---
cc: JESUS WALLACE MD DATE OF CONSULTATION: 07/22/[address] Wallace, Vascular Surgery REASON FOR CONSULTATION Superior mesenteric artery stenosis, abdominal pain, possible intestinal ischemia. HISTORY OF PRESENT ILLNESS This 71-year-old lady presents to our ER with abdominal cramping pain that she states is 10 out of 10 and it is non-localized, it is in the whole abdomen up into her chest and both arms. The patient states that occurred after eating dinner last night and then with medication got better. The patient states she had several attacks of that pain before. It should be noted that she was admitted to [facility] on June 29 and was there until July 17, had a massive workup was found to have troponin elevation, chronic renal failure, hyperkalemia and non ST SC. She was also found to have decompensated CHF at that time. She was evaluated by every service including gastroenterology, found to have a gallstone which was noncontributory here. Now we are starting again the same work up here, I believe. PAST MEDICAL HISTORY 1. Longstanding diabetes mellitus. 2. Coronary artery disease. 3. Above-noted SC. 4. Congestive heart failure. 5. 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 6. Renal insufficiency. PAST SURGICAL HISTORY 1. Cataract removal. 2. Some foot surgery in August this year. The patient has been bedridden for almost a year now. MEDICATIONS Medications include: 1. Eliquis. 2. Plavix. 3. Coreg. 4. Oxycodone. 5. Lasix. ALLERGIES ASPIRIN, APPARENT IODINATED CONTRAST, although she received contrast recent. SOCIAL HISTORY The patient lives in [place]. Does not smoke, does not drink. PHYSICAL EXAMINATION GENERAL: A pleasant 71-year-old lady appearing much older than her actual age, somewhat pale and gaunt. HEENT: Normocephalic. No trauma to the head. Pupils are equal, reactive. Extraocular muscles cannot be tested. The patient is blind and has lateral gaze. NECK: Neck is supple. Bilateral carotid pulses. No bruits. CHEST: Bilateral breath sounds. HEART: Regular rhythm. ABDOMEN: Soft, patulous, active bowel sounds, somewhat distended but no rebound or guarding, no masses and the patient is really not tender at all on exam. No hernias. PELVIS: Pelvis is normal. BACK: Appears to be completely normal. EXTREMITIES: The patient is somewhat overweight but she has dopplerable pulses distally and palpable proximally, no signs of vascular deficit. 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 IMPRESSION AND RECOMMENDATIONS I reviewed laboratory and diagnostic procedures that I had here available from here and the other place. I am not sure why the patient has cramping, whether she has hyperactive bowel or maybe had some infection, either way everything is passing through and the patient is eating. It may be a dietary issue as well with intolerance to either glutens or something else. As far as the vascular picture is concerned the patient has celiac artery stenosis but the SMA and TAO are completely patent. It would be very unusual that the celiac stenosis in itself would be causing this much pain but not consistently. I am going to discuss this with interventional radiology and see if we can perhaps balloon dilate the celiac artery and see if that works. It should be noted this lady is very ill, has a low cardiac output and probably chronic hypoperfusion and any procedure we do has to be weighed against the patient's ability to tolerate it safely with some potential clear benefit. I have discussed this with family at length and explained to them how ill the patient is and she understands it as well. Thank you much for the referral. Jesus SIMS/FLOR /11:44 AM /11:53 AM
[2017-07-22] MEDS: ATORVASTATIN 10 MG TAB PO SCH (21:08)
[2017-07-22] MEDS: cefTRIAXone INJ 1,000 MG in SODIUM CHLORIDE 0.9% INJ 100 ML IV SCH (21:09)
[2017-07-23 03:26] VITALS: PULSE 68
[2017-07-23 04:04] VITALS: BP 132/73; PULSE 75; RESP 18; TEMP 97.2; O2SAT 95
[2017-07-23] MEDS: ACETAMINOPHEN/HYDROcodone 325 MG/10 MG TAB PO PRN ×2 (04:58→14:25)
[2017-07-23 07:36] LABS: AUTOMATED NEUTROPHIL # 5.1 TH/MM3 (1.8-7.7); BASOPHIL # 0.1 TH/MM3 (0-0.2); BASOPHIL % 1.3 % (0.0-2.0); EOSINOPHIL # 0.3 TH/MM3 (0-0.4); EOSINOPHIL % 3.5 % (0.0-4.0); HEMOGLOBIN 11.8 GM/DL (11.6-15.3); LYMPH % 17.7 % (9.0-44.0); LYMPHOCYTE # 1.3 TH/MM3 (1.0-4.8); MEAN CELL VOLUME 100.8 FL (80.0-100.0); MEAN CORPUSCULAR HEMOGLOBIN 32.9 PG (27.0-34.0); MEAN CORPUSCULAR HGB CONC 32.6 % (32.0-36.0); MONO % 9.7 % (0.0-8.0); MONOCYTE # 0.7 TH/MM3 (0-0.9); NEUT % 67.8 % (16.0-70.0); PLATELET COUNT 317 TH/MM3 (150-450); RED BLOOD COUNT 3.57 MIL/MM3 (4.00-5.30); RED CELL DISTRIBUTION WIDTH 22.8 % (11.6-17.2); WHITE BLOOD COUNT 7.5 TH/MM3 (4.0-11.0)
[2017-07-23 08:00] VITALS: BP 134/71; PULSE 70; RESP 18; TEMP 97.7; O2SAT 92
[2017-07-23] MEDS: INSULIN ASPART SUPPLEMENTAL SCALE SQ SCH ×2 (08:00→12:00)
[2017-07-23] MEDS: CLOPIDOGREL 75 MG TAB PO SCH (10:19)
[2017-07-23] MEDS: FUROSEMIDE 40 MG TAB PO SCH (10:19)
[2017-07-23] MEDS: PANTOPRAZOLE SOD 40 MG DELAYED RELEASE TAB PO SCH (10:19)
[2017-07-23] MEDS: APIXABAN 2.5 MG TABLET PO SCH (10:20)
--- NOTE | 2017-07-23 11:15 | HHI.FF ---
Face to Face Verification Diagnosis: (1) CHF (congestive heart failure) (2) Celiac artery stenosis (3) CKD (chronic kidney disease) (4) UTI (urinary tract infection) Physical Therapy Order: Evaluate and Treat Home Health Nursing Order: Medical education Signs/symptoms of disease process Diabetic education CHF education I have seen patient Claire Melton on 07/23/17. My clinical findings support the need for the requested home health care services because: Ltd mobility - disease progression Deconditioned w/ increased weakness Med compliance is questionable Limited ability to care for self High risk of falls I certify that my clinical findings support that this patient is homebound because: Unsteady gait/balance Poor cardiac reserve Vipin Ceron MD Jul 23, 2017 11:15
[2017-07-23] MEDS ORDERED: HYDR-3516 PO (11:17)
--- NOTE | 2017-07-23 11:27 | HHI.DCPOC ---
Discharge Care Plan Diagnosis: (1) Celiac artery stenosis (2) CHF (congestive heart failure) (3) DVT (deep venous thrombosis) (4) Anemia (5) CKD (chronic kidney disease) Goals to Promote Your Health * To prevent worsening of your condition and complications * To maintain your health at the optimal level Directions to Meet Your Goals Eat small, frequent meals to prevent belly pain Keep your appointment with Cardiology as arranged at your prior hospital stay No need to follow up with Dr. Rosales (vascular surgeon) Take your medications as prescribed Follow your dietary instruction Follow activity as directed Keep your appointments as scheduled Take your immunizations and boosters as scheduled If your symptoms worsen call your PCP, if no PCP go to Urgent Care Center or Emergency Room Smoking is Dangerous to Your Health. Avoid second hand smoke Call the 24-hour hour crisis hotline for domestic abuse at Vipin Ceron MD Jul 23, 2017 11:27
--- NOTE | 2017-07-23 11:31 | HHI.FPPN ---
Subjective Remarks Overnight had a flare of her abdominal pain. Feels better this morning, pain resolved after a single dose of Foley 10 mg. Denies CP/SOB. Feels ready to go home. (Vipin Ceron MD) Objective Vitals Vital Signs Date Time Temp Pulse Resp B/P (MAP) Pulse Ox O2 Delivery O2 Flow Rate FiO2 07/23/17 08:00 97.7 70 18 134/71 (92) 92 07/23/17 04:04 97.2 75 18 132/73 (92) 95 07/23/17 03:26 68 07/22/17 23:54 68 07/22/17 23:48 97.3 68 18 112/56 (74) 94 07/22/17 20:08 97.8 69 18 110/65 (80) 97 07/22/17 19:45 71 07/22/17 16:12 68 07/22/17 16:06 98.7 73 19 152/66 (94) 97 07/22/17 12:06 97.2 66 20 123/64 (83) 99 I/O 07/22/17 07/22/17 07/22/17 07/23/17 07/23/17 07/23/17 07:00 15:00 23:00 07:00 15:00 23:00 Intake Total 380 ml 0 ml Output Total 400 ml 0 ml Balance -400 ml 380 ml 0 ml Intake Oral 280 ml 0 ml IV Total 100 ml Output Urine Total 400 ml Stool Total 0 ml # Voids 3 4 # Bowel Movements 1 (Vipin Ceron MD) Result Diagram: 07/23/17 0657 07/21/17 2356 Imaging Last Impressions Chest X-Ray 07/21/17 0000 Signed Impressions: Service Date/Time: Friday, July 21, 2017 11:57 - CONCLUSION: Underated, of compensated cardiomegaly. Maximino Moy MD FACR Abdomen/Pelvis CT 07/21/17 0000 Signed Impressions: Service Date/Time: Friday, July 21, 2017 13:31 - CONCLUSION: High-grade stenosis origin of the celiac SMA widely patent. Good distal flow. Bilateral renal origin calcifications, borderline significant borderline significant. Cardiomegaly with trace pericardial effusions Generalized anasarca. Congestive failure would be consideration. Maximino Moy MD FACR Objective Remarks CONSTITUTIONAL/GEN: normally nourished with increased BMI, in NAD. LUNGS: clear A-P, respiratory effort is normal. CARDIOVASCULAR: RR without murmur or gallop. 2+ edema of BLE GI/ABD: soft NDNT without masses, without organomegaly. NEURO: No focal deficits SKIN: color normal, no rashes noted MUSC: back is normal in appearance. Extremities are normal in appearance; previous amputation of all left toes. PSYCH/MENTAL STATUS: Alert and awake; will respond appropriately to verbal questions Medications and IVs Current Medications Medications (Trade) Dose Ordered Sig/Lisbet Route Start Time Stop Time Status Last Admin (NS Flush) 2 ml UNSCH PRN IV FLUSH 07/21/17 09:45 (Eliquis) 2.5 mg BID PO 07/21/17 21:00 07/23/17 10:20 (Lipitor) 10 mg HS PO 07/21/17 21:00 07/22/17 21:08 (Coreg) 3.125 mg BID PO 07/21/17 21:00 07/22/17 21:09 (Plavix) 75 mg DAILY PO 07/22/17 09:00 07/23/17 10:19 (Lasix) 40 mg DAILY PO 07/22/17 09:00 07/23/17 10:19 (Protonix) 40 mg DAILY PO 07/22/17 09:00 07/23/17 10:19 (D50w (Vial) Inj) 50 ml UNSCH PRN IV PUSH 07/21/17 15:45 (Glucagon Inj) 1 mg UNSCH PRN OTHER 07/21/17 15:45 (NovoLOG SUPPLEMENTAL SCALE) 1 ACHS SLIDING SCALE SQ 07/21/17 17:00 07/22/17 21:10 (Foley 5-325 Mg) 1 tab Q4H PRN PO 07/21/17 16:00 07/21/17 22:04 (Foley 10-325 Mg) 1 tab Q4H PRN PO 07/21/17 16:00 07/23/17 04:58 Ceftriaxone Sodium 1000 mg/ Sodium Chloride 100 ml @ 200 mls/hr Q24H IV 07/21/17 20:00 07/22/17 21:09 (Vipin Ceron MD) A/P Assessment and Plan 71-year-old white female with past medical history of CHF as, peripheral artery disease, DVTs presenting with abdominal pain. Admitted for workup. Discharge Planning Home today (Vipin Ceron MD) Attending Attestation Patient seen and examined. Case reviewed and discussed with the resident team. Agree with plan of care as discussed with me and documented in the resident note. (Romario Babb MD) Problem List: (1) Abdominal pain ICD Codes: R10.9 - Unspecified abdominal pain Status: Chronic Plan: Abdominal pain overall improved though did have a flare last night Had gallstone on previous admission to [facility], but was not found on CT during this stay. CTA on 07/21 shows high-grade stenosis origin of the celiac. SMA widely patent. Likely diagnosis is chronic mesenteric ischemia versus passed gallstone * Advance to regular diet, discharge if tolerating well; small portions advised * Vascular surgery consulted, recs appreciated * May be candidate for stent placement but risks likely outweigh benefits. Available PRN. * Patient is already on anticoagulation therapy Eliquis, also on Plavix to prevent further thrombus formation * Continue at home pantoprazole (2) Celiac artery stenosis ICD Codes: I77.4 - Celiac artery compression syndrome Status: Acute Plan: See plan above (3) NSTEMI (non-ST elevated myocardial infarction) ICD Codes: I21.4 - Non-ST elevation (NSTEMI) myocardial infarction Status: Acute Plan: Patient with chest pain last night into this morning. However, now has resolved. Patient had an NSTEMI at previous hospital admission at [facility] on 06/30/17. Elevated troponins may be residual from that stay. Troponin at admission is 0.14. EKG on admission shows sinus rhythm with borderline right axis deviation. Possible anterior myocardial infarction. Chest pain has resolved. * F/u with PCP and cardiology (patient has appt arranged on the 07 of August) (4) UTI (urinary tract infection) ICD Codes: N39.0 - Urinary tract infection, site not specified Status: Acute Plan: Patient asymptomatic Routine UA on admission shows large leukocyte esterase, WBCs, WBC clumps, and occasional bacteria. Urine culture growing yeast species 25-50,000 units per mL * Given asymptomatic patient, this may very well just be contaminant * F/u with PCP (5) CHF (congestive heart failure) ICD Codes: I50.9 - Heart failure, unspecified Status: Chronic Plan: Patient received an echocardiogram at previous admission at [facility] on 06/30. Findings were severely decreased left ventricular systolic function. Estimated ejection fraction was 25-30%. BNP ~5000 --> 900s --> 2400 * F/u with cardiology as above * Continue home medication of carvedilol, furosemide, and atorvastatin (6) DVT (deep venous thrombosis) ICD Codes: I82.409 - Acute embolism and thrombosis of unspecified deep veins of unspecified lower extremity Plan: Patient with previously found greater saphenous vein thrombosis near deep vein junction. He has has been also states that she has blood clots in her left arm and right leg. * Continue home Eliquis (7) Elevated LFTs ICD Codes: R79.89 - Other specified abnormal findings of blood chemistry Plan: Pt also had elevated LFTs at previous admission at [facility] on 06/30 thought to be due to her statin and therefore decreased the dose. Also thought that it could've been due to hepatic congestion. Her celiac artery stenosis may also cause her elevated LFTs due to the celiac trunk leading into the common hepatic artery. * Continue her decreased dose of atorvastatin at 10 mg * Outpatient follow up as directed by PCP (8) CKD (chronic kidney disease) ICD Codes: N18.9 - Chronic kidney disease, unspecified Status: Chronic Plan: Creatinine at admission is 1.4. At previous hospital stay at [facility] patient had to be on hemodialysis due to kidney injury from IV contrast. * Cr on discharge 1.12 * F/u with PCP (9) Anemia ICD Codes: D64.9 - Anemia, unspecified Status: Chronic Plan: Upon admission patient's hemoglobin is 11.2, slightly below normal limits. Patient also shows macrocytosis with MCV at 100.4. * Continue to monitor (Vipin Ceron MD) Problem Qualifiers (1) Abdominal pain: Qualified Codes: R10.84 - Generalized abdominal pain (2) CHF (congestive heart failure): Qualified Codes: I50.9 - Heart failure, unspecified Vipin Ceron MD Jul 23, 2017 11:31 Romario Babb MD Jul 23, 2017 16:37
[2017-07-23 12:00] VITALS: BP 139/72; PULSE 76; RESP 20; TEMP 97.8; O2SAT 93
[2017-07-23] MEDS: CARVEDILOL 3.125 MG TAB PO SCH (14:25)
--- NOTE | 2017-07-23 14:41 | HHI.DS ---
Discharge Summary Admission Date Jul 21, 2017 at 14:02 Discharge Date: Jul 23, 2017 Admitting Diagnosis NSTEMI, CP, Abdominal pain. (1) Abdominal pain Diagnosis: Principal ICD Codes: R10.9 - Unspecified abdominal pain Status: Chronic (2) Celiac artery stenosis Diagnosis: Principal ICD Codes: I77.4 - Celiac artery compression syndrome Status: Acute (3) NSTEMI (non-ST elevated myocardial infarction) Diagnosis: Secondary ICD Codes: I21.4 - Non-ST elevation (NSTEMI) myocardial infarction Status: Acute (4) UTI (urinary tract infection) Diagnosis: Secondary ICD Codes: N39.0 - Urinary tract infection, site not specified Status: Acute (5) CHF (congestive heart failure) Diagnosis: Secondary ICD Codes: I50.9 - Heart failure, unspecified Status: Chronic (6) DVT (deep venous thrombosis) Diagnosis: Secondary ICD Codes: I82.409 - Acute embolism and thrombosis of unspecified deep veins of unspecified lower extremity (7) Elevated LFTs Diagnosis: Secondary ICD Codes: R79.89 - Other specified abnormal findings of blood chemistry (8) CKD (chronic kidney disease) Diagnosis: Secondary ICD Codes: N18.9 - Chronic kidney disease, unspecified Status: Chronic (9) Anemia Diagnosis: Secondary ICD Codes: D64.9 - Anemia, unspecified Status: Chronic Consultants Vascular Sx - Dr. Blackwell Brief History Mrs. Melton is a 71-year-old white female with a PMH of CAD, DVT, CHF presenting with abdominal pain of a few years duration. She states that this started a few years ago. She was previously diagnosed with gastritis and indigestion. He describes his pain as a 10 out of 10 pain that feels like someone is twisting her insides that is located over her whole abdomen and radiates to her chest and down both arms. It is worse after eating only dinner and lasted throughout the night. It was made better with the medication that she had gotten in the ED. She tried to take Gaviscon and Carafate at home, but they did not work. Last night is the only time that it radiated into her chest. No vomiting but has nausea. She has not seen a GI doctor for her chronic abdominal pain. Of note, (per discharge summary) she was recently discharged from [facility] on 07/17 after a 17 day stay. There she had presented with abdominal pain and shortness of breath and found to have troponin elevation, acute on chronic renal failure, hyperkalemia, non-ST elevation OR. Initial CT also revealed peripheral vascular disease with severe stenosis of proximal celiac artery, but other arteries are patent. She also had an acute decompensated CHF, non-ST elevation OR. She required dialysis in view of progressive renal failure and hyperkalemia. She was evaluated by GI for her ongoing abdominal pain and she was found to have a gallstone. No intervention was done at that time and she was to follow-up as an outpatient. She was also noticed to have increased LFTs. She started on statin that was DC'd and then put on a lower dose. They also believe that the increased LFT could be secondary to hepatic congestion. She was put on Plavix and Eliquis for severe peripheral vascular disease and greater saphenous thrombosis. CBC/BMP: 07/23/17 0657 07/21/17 2356 Significant Findings Laboratory Tests Test 07/21/17 09:46 07/21/17 10:11 07/21/17 17:50 07/21/17 23:56 Red Blood Count 3.40 MIL/MM3 (4.00-5.30) Hemoglobin 11.2 GM/DL (11.6-15.3) Hematocrit 34.1 % (35.0-46.0) Mean Corpuscular Volume 100.4 FL (80.0-100.0) Red Cell Distribution Width 22.3 % (11.6-17.2) Neutrophils (%) (Auto) 73.1 % (16.0-70.0) Monocytes (%) (Auto) 9.3 % (0.0-8.0) Prothrombin Time 17.8 SEC (9.8-11.6) Activated Partial Thromboplast Time 35.5 SEC (24.3-30.1) Blood Urea Nitrogen 26 MG/DL (7-18) 26 MG/DL (7-18) Creatinine 1.40 MG/DL (0.50-1.00) 1.12 MG/DL (0.50-1.00) Random Glucose 128 MG/DL (74-106) Alkaline Phosphatase 316 U/L (45-117) 258 U/L (45-117) Aspartate Amino Transf (AST/SGOT) 44 U/L (15-37) Alanine Aminotransferase (ALT/SGPT) 112 U/L (10-53) 88 U/L (10-53) Total Bilirubin 1.2 MG/DL (0.2-1.0) Estimat Glomerular Filtration Rate 37 ML/MIN (>89) 48 ML/MIN (>89) Lactic Acid Level 2.5 mmol/L (0.4-2.0) Troponin I 0.14 NG/ML (0.02-0.05) 0.15 NG/ML (0.02-0.05) 0.15 NG/ML (0.02-0.05) B-Type Natriuretic Peptide 4958 PG/ML (0-100) Urine Turbidity HAZY (CLEAR) Urine Leukocyte Esterase LARGE (NEG) Urine WBC 8 /hpf (0-5) Urine WBC Clumps OCC (NONE) Urine Bacteria OCC /hpf (NONE) Urine Mucus FEW /lpf (OCC) Urine Yeast (Budding) FEW (NONE) Total Protein 6.3 GM/DL (6.4-8.2) Albumin 3.0 GM/DL (3.4-5.0) Calcium Level 8.3 MG/DL (8.5-10.1) Potassium Level 3.4 MEQ/L (3.5-5.1) Total Creatine Kinase 25 U/L (26-192) Test 07/22/17 07:00 07/23/17 06:57 Red Blood Count 3.38 MIL/MM3 (4.00-5.30) 3.57 MIL/MM3 (4.00-5.30) Hemoglobin 10.9 GM/DL (11.6-15.3) Hematocrit 33.6 % (35.0-46.0) Red Cell Distribution Width 22.8 % (11.6-17.2) 22.8 % (11.6-17.2) B-Type Natriuretic Peptide 902 PG/ML (0-100) 2661 PG/ML (0-100) Mean Corpuscular Volume 100.8 FL (80.0-100.0) Monocytes (%) (Auto) 9.7 % (0.0-8.0) Imaging Last Impressions Chest X-Ray 07/21/17 0000 Signed Impressions: Service Date/Time: Friday, July 21, 2017 11:57 - CONCLUSION: Underated, of compensated cardiomegaly. Maximino Moy MD FACR Abdomen/Pelvis CT 07/21/17 0000 Signed Impressions: Service Date/Time: Friday, July 21, 2017 13:31 - CONCLUSION: High-grade stenosis origin of the celiac SMA widely patent. Good distal flow. Bilateral renal origin calcifications, borderline significant borderline significant. Cardiomegaly with trace pericardial effusions Generalized anasarca. Congestive failure would be consideration. Maximino Moy MD FACR PE at Discharge CONSTITUTIONAL/GEN: normally nourished with increased BMI, in NAD. LUNGS: clear A-P, respiratory effort is normal. CARDIOVASCULAR: RR without murmur or gallop. 2+ edema of BLE GI/ABD: soft NDNT without masses, without organomegaly. NEURO: No focal deficits SKIN: color normal, no rashes noted MUSC: back is normal in appearance. Extremities are normal in appearance; previous amputation of all left toes. PSYCH/MENTAL STATUS: Alert and awake; will respond appropriately to verbal questions Hospital Course 71 yo admitted with episodic abdominal pain usually after dinner. Found to have severe stenosis of celiac artery, no gallstone (though gallstones were noted on prior admission at [facility]). Pain improved with conservative care, very infrequent oral narcotic. Vascular surgery evaluated her and did not think her a surgical candidate due to her risk factors. She improved with slow advancement of diet and advisement to have small, frequent meals. Medically cleared for discharge with outpatient follow up. It is recommended she be on a higher-intensity statin but her LFTs will need to be monitored due to h/o liver injury on statins in the past. PCP to follow up. During hospitalization it was also noted that her urine grew yeast species, likely colonization rather than true infection. Pt Condition on Discharge: Good Discharge Disposition: Disch w/ Home Health Serv Discharge Instructions DIET: Follow Instructions for: As Tolerated, No Restrictions Activities you can perform: Regular-No Restrictions Follow up Referrals: PCP Follow-up - 2 Weeks New Medications: Hydrocodone/Acetaminophen (Hydrocodone-Acetamin 5-325 mg) 5 Mg-325 Mg Tablet 1 TAB PO Q4H PRN for BREAKTHROUGH PAIN, #10 Continued Medications: Apixaban (Eliquis) 2.5 Mg Tab 2.5 MG PO BID for Blood Clot Prevention, TAB 0 Refills Atorvastatin (Atorvastatin) 10 Mg Tab 10 MG PO HS for Cholesterol Management, #30 TAB 0 Refills Carvedilol (Coreg) 3.125 Mg Tab 3.125 MG PO BID, #60 TAB 0 Refills Clopidogrel (Plavix) 75 Mg Tab 75 MG PO DAILY for Blood Clot Prevention, #30 TAB 0 Refills Dicyclomine (Dicyclomine) 10 Mg Cap 10 MG PO TID PRN for Bowel Management, CAP 0 Refills Furosemide (Furosemide) 40 Mg Tab 40 MG PO DAILY, #30 TAB 0 Refills Pantoprazole (Protonix) 40 Mg Tab 40 MG PO DAILY for Reflux, #30 TAB 0 Refills Discontinued Medications: Oxycodone (Oxycodone) 5 Mg Cap 5 MG PO Q8H PRN for PAIN, CAP 0 Refills Vipin Ceron MD Jul 23, 2017 2:41 pm
--- NOTE | 2017-07-23 20:49 | ECHRPT ---
Indication: EF CHF CONCLUSIONS Normal left ventricular size. Wall thickness is normal. The left ventricular systolic function is severely reduced with an estimated ejection fraction in th e range of 25-30%. There is diffuse global hypokinesis. Mitral annular calcification is present. Sfpbhhrt-eg-obwakk mitral valve regurgitation. Aortic valve sclerosis is present. Mild aortic valve regurgitation. There is moderate tricuspid valve regurgitation. There is estimated rqtucyzs-rq-zdbgmr pulmonary hypertension present (66 mmHg). BP: 132 / 73 HR: 75 Rhythm: MEASUREMENTS (Male / Female) Normal Values Technical Quality: 2D ECHO LV Diastolic Diameter PLAX 4.6 cm 4.2 - 5.9 / 3.9 - 5.3 cm LV Systolic Diameter PLAX 4.2 cm IVS Diastolic Thickness 1.3 cm 0.6 - 1.0 / 0.6 - 0.9 cm LVPW Diastolic Thickness 1.0 cm 0.6 - 1.0 / 0.6 - 0.9 cm LV Relative Wall Thickness 0.5 RV Internal Dim ED PLAX 2.2 cm LA Systolic Diameter LX 4.0 cm 3.0 - 4.0 / 2.7 - 3.8 cm DOPPLER MR Peak Velocity 501.0 cm/s MR Peak Gradient 100.4 mmHg TR Peak Velocity 358.0 cm/s TR Peak Gradient 51.3 mmHg Right Atrial Pressure 15.0 mmHg Pulmonary Artery Systolic Pressu 66.3 mmHg Right Ventricular Systolic Press 66.3 mmHg FINDINGS LEFT VENTRICLE Normal left ventricular size. Wall thickness is normal. The left ventricular systolic function is severely reduced with an estimated ejection fraction in th e range of 25-30%. There is diffuse global hypokinesis. RIGHT VENTRICLE Normal right ventricular size and systolic function. LEFT ATRIUM The left atrial size is normal. RIGHT ATRIUM The right atrial size is normal. ATRIAL SEPTUM Normal atrial septal thickness without atrial level shunting by limited color doppler interrogation. AORTA The aortic root and proximal ascending aorta are normal in size on limited imaging. MITRAL VALVE Mitral annular calcification is present. Vsuavuzy-tx-gtoisu mitral valve regurgitation. AORTIC VALVE Aortic valve sclerosis is present. Mild aortic valve regurgitation. TRICUSPID VALVE There is moderate tricuspid valve regurgitation. There is estimated ewlxwdcg-ru-mkwhwp pulmonary hypertension present (66 mmHg). PULMONARY VALVE No pulmonary valve regurgitation or stenosis. VESSELS The inferior vena cava is normal in size. PERICARDIUM No pericardial effusion. Aracelis Bah MD, FACC (Electronically Signed) Final Date:23 July 2017 20:48
== END 2017-07-23 16:05 | disposition home health service (06) | DRG 391 ==
LOC: NEPE 08:51 → NEDA 14:02 → N04B 14:49
PROVIDERS: ADMIT Family Medicine; ATTEND Family Medicine
DX: I77.4 Celiac artery compression syndrome (principal); I21.4 Non-ST elevation (NSTEMI) myocardial infarction; E11.22 Type 2 diabetes mellitus with diabetic chronic kidney disease; N39.0 Urinary tract infection, site not specified; I50.9 Heart failure, unspecified; D64.9 Anemia, unspecified; N18.9 Chronic kidney disease, unspecified; H91.91 Unspecified hearing loss, right ear; H54.8 Legal blindness, as defined in USA; Z86.718 Personal history of other venous thrombosis and embolism; Z79.02 Long term (current) use of antithrombotics/antiplatelets; Z74.01 Bed confinement status; I73.9 Peripheral vascular disease, unspecified; I25.10 Atherosclerotic heart disease of native coronary artery without angina pectoris
CPT/HCPCS: 71010; 74176; 74177; 80053; 81001; 82310; 82550; 82948; 83605; 83690; 83880; 84484; 85025; 85027; 85610; 85730; 87086; 93005; 93308; 96374; 96375; J0696; J1815; J2270; J2405; J7040; Q9967

== ENCOUNTER 2017-07-30 08:56 | Inpatient (IN) | payer MEDICARE, OTHER ==
[~2017-07-30] VITALS: Ht 167.6 cm; Wt 89.5 kg
[~2017-07-30 08:56] MED LIST: APIX2.5T PO; ATOR10TA15 PO; CARV3.125 PO; DICY10CA12 PO; FURO40TA PO; HYDR-3516 PO; PLAV75TA29 PO; PROT40TA PO
[2017-07-30 09:02] VITALS: BP 169/110; PULSE 81; RESP 17; TEMP 98.7; O2SAT 96
--- NOTE | 2017-07-30 09:28 | PD ---
HPI Chief Complaint: Abdominal Pain Time Seen by Provider: 09:17 Travel History International Travel<30 days: No Contact w/Intl Traveler<30days: No Traveled to known affect area: No History of Present Illness HPI 71yo F with PMH of CAD, PVD, DVT on plavix and eliquis, CHF presents to the ED with c/o epigastric abdominal pain. Said it has been severe and intermittent since last night. 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 Vascular evaluated pt and did not think she is a surgical candidate and she was medically managed. Denies any fever, chest pain, n/v. Pt has chronic sob. PFSH Past Medical History Hx Anticoagulant Therapy: Yes Anxiety: No Depression: No Cancer: No Cardiovascular Problems: Yes Chest Pain: Yes Congestive Heart Failure: Yes Diabetes: Yes Patient Takes Glucophage: No Deep Vein Thrombosis: Yes Gastrointestinal Disorders: Yes Genitourinary: Yes (Acute kidney failure) Musculoskeletal: No Neurologic: No Respiratory: No Myocardial Infarction: Yes Triglycerides - High: Yes ?: Not Past Surgical History Eye Surgery: Yes (cataracts) Other Surgery: Yes Social History Alcohol Use: No Tobacco Use: No Substance Use: No Allergies-Medications (Allergen,Severity, Reaction): Coded Allergies: aspirin (Verified Allergy, Intermediate, hives, 07/30/17) Iodinated Contrast- Oral and IV Dye (Verified Adverse Reaction, Severe, kidney failure, 07/30/17) Reported Meds & Prescriptions Reported Meds & Active Scripts Active Hydrocodone-Acetamin 5-325 mg (Hydrocodone/Acetaminophen) 5 Mg-325 Mg Tablet 1 Tab PO Q4H PRN Reported Plavix (Clopidogrel Bisulfate) 75 Mg Tab 75 Mg PO DAILY Protonix (Pantoprazole Sodium) 40 Mg Tab 40 Mg PO DAILY Furosemide 40 Mg Tab 40 Mg PO DAILY Dicyclomine (Dicyclomine HCl) 10 Mg Cap 10 Mg PO TID PRN Coreg (Carvedilol) 3.125 Mg Tab 3.125 Mg PO BID Atorvastatin (Atorvastatin Calcium) 10 Mg Tab 10 Mg PO HS Eliquis (Apixaban) 2.5 Mg Tab 2.5 Mg PO BID Review of Systems Except as stated in HPI: all other systems reviewed are Neg Physical Exam Narrative GENERAL: 71yo F in mild distress. SKIN: Focused skin assessment warm/dry. HEAD: Atraumatic. Normocephalic. EYES: Pupils equal and round. No scleral icterus. No injection or drainage. . CARDIOVASCULAR: Regular rate and rhythm. No murmur appreciated. RESPIRATORY: No accessory muscle use. Clear to auscultation. Breath sounds equal bilaterally. GASTROINTESTINAL: Abdomen soft, +TTP epigastric region. No rebound tenderness or guarding. MUSCULOSKELETAL: No obvious deformities. No clubbing. No cyanosis. No edema. NEUROLOGICAL: Awake and alert. No obvious cranial nerve deficits. Motor grossly within normal limits. Normal speech. PSYCHIATRIC: Appropriate mood and affect; insight and judgment normal. Data Data Last Documented VS Vital Signs Date Time Temp Pulse Resp B/P (MAP) Pulse Ox O2 Delivery O2 Flow Rate FiO2 07/30/17 09:02 98.7 81 17 169/110 (129) 96 Orders Orders Complete Blood Count With Diff (07/30/17 09:28) Comprehensive Metabolic Panel (07/30/17 09:28) Lipase (07/30/17 09:28) Ct Abd/Pel W/O Iv Contrast (07/30/17 09:28) Urinalysis - C+S If Indicated (07/30/17 09:28) Urine Culture (07/30/17 09:45) Morphine Inj (Morphine Inj) (07/30/17 11:30) Electrocardiogram (07/30/17 ) Ceftriaxone Inj (Rocephin Inj) (07/30/17 13:15) Morphine Inj (Morphine Inj) (07/30/17 13:45) Admit Order (Ed Use Only) (07/30/17 13:53) Consult Gastroenterology (07/30/17 ) Place In Observation (07/30/17 ) Vital Signs (Adult) ALEXIS.Q4H (07/30/17 13:54) Activity Oob With Assistance (07/30/17 13:54) Proprietary Trader / Telemetry ALEXIS.Q8H (07/30/17 13:54) Intake + Output 06,14,22 (07/30/17 13:54) Notify Dr: Other (07/30/17 13:54) Diet Npo (07/30/17 Lunch) Resp Oxygen Britton C Titrat 1-4 L (07/30/17 ) Labs Laboratory Tests Test 07/30/17 09:35 07/30/17 09:45 White Blood Count 5.8 TH/MM3 Red Blood Count 3.73 MIL/MM3 Hemoglobin 12.5 GM/DL Hematocrit 37.9 % Mean Corpuscular Volume 101.5 FL Mean Corpuscular Hemoglobin 33.5 PG Mean Corpuscular Hemoglobin Concent 33.0 % Red Cell Distribution Width 22.6 % Platelet Count 188 TH/MM3 Mean Platelet Volume 9.4 FL Neutrophils (%) (Auto) 67.8 % Lymphocytes (%) (Auto) 19.1 % Monocytes (%) (Auto) 10.2 % Eosinophils (%) (Auto) 2.1 % Basophils (%) (Auto) 0.8 % Neutrophils # (Auto) 3.9 TH/MM3 Lymphocytes # (Auto) 1.1 TH/MM3 Monocytes # (Auto) 0.6 TH/MM3 Eosinophils # (Auto) 0.1 TH/MM3 Basophils # (Auto) 0.0 TH/MM3 CBC Comment DIFF FINAL Differential Comment Blood Urea Nitrogen 23 MG/DL Creatinine 1.45 MG/DL Random Glucose 122 MG/DL Total Protein 6.9 GM/DL Albumin 3.6 GM/DL Calcium Level 8.9 MG/DL Alkaline Phosphatase 311 U/L Aspartate Amino Transf (AST/SGOT) 69 U/L Alanine Aminotransferase (ALT/SGPT) 75 U/L Total Bilirubin 2.0 MG/DL Sodium Level 141 MEQ/L Potassium Level 3.6 MEQ/L Chloride Level 102 MEQ/L Carbon Dioxide Level 27.4 MEQ/L Anion Gap 12 MEQ/L Estimat Glomerular Filtration Rate 36 ML/MIN Lipase 137 U/L Urine Color YELLOW Urine Turbidity HAZY Urine pH 5.5 Urine Specific [place] 1.019 Urine Protein 100 mg/dL Urine Glucose (UA) NEG mg/dL Urine Ketones NEG mg/dL Urine Occult Blood TRACE Urine Nitrite NEG Urine Bilirubin NEG Urine Urobilinogen LESS THAN 2.0 MG/DL Urine Leukocyte Esterase TRACE Urine RBC 2 /hpf Urine WBC 4 /hpf Urine Squamous Epithelial Cells 3 /hpf Urine Transitional Epithelial Cells <1 /hpf Urine Amorphous Sediment OCC Urine Bacteria RARE /hpf Urine Hyaline Casts 30 /lpf Urine Mucus FEW /lpf Urine Yeast (Budding) RARE Microscopic Urinalysis Comment CATH-CULTURE IND MDM Medical Decision Making Medical Screen Exam Complete: Yes Emergency Medical Condition: Yes Interpretation(s) EKG: NSR 75bpm. Normal axis. Q wave V2. No ST segment elevation or depression. Differential Diagnosis Celiac SMA stenosis vs. pancreatitis vs. choledocholithiasis vs. colitis vs. gastritis Narrative Course 71yo F with epigastric abdominal pain. Labs reviewed, no leukocytosis. Creatinine elevated at 1.45 which is slightly worst than prior. Bilirubin in mildly elevated at 2.0. AST/ALT elevated at 69/75. UA showed trace leukocyte. Rare bacteria. Culture indicated. CT a/p showed cholelithiasis. Small bilateral pleural effusions. UA showed hyaline casts. Rare bacteria. Trace leukocyte. Will cover with ceftriaxone. Pt reevaluated at bedside after morphine and still in a lot of pain. Will consult GI and admit for possible choledocholithiasis. Ordered another dose of morphine. Discussed with Dr. Winter and accepted to his service. Diagnosis Primary Impression: Intractable abdominal pain Additional Impressions: Elevated LFTs Dehydration UTI (urinary tract infection) Qualified Codes: N39.0 - Urinary tract infection, site not specified; R31.9 - Hematuria, unspecified Admitting Information Admitting Physician Requests: Claudia Giraldo DO Jul 30, 2017 09:28
[2017-07-30 09:54] LABS: AUTOMATED NEUTROPHIL # 3.9 TH/MM3 (1.8-7.7); BASOPHIL % 0.8 % (0.0-2.0); EOSINOPHIL # 0.1 TH/MM3 (0-0.4); EOSINOPHIL % 2.1 % (0.0-4.0); HEMATOCRIT 37.9 % (35.0-46.0); HEMOGLOBIN 12.5 GM/DL (11.6-15.3); LYMPH % 19.1 % (9.0-44.0); LYMPHOCYTE # 1.1 TH/MM3 (1.0-4.8); MEAN CELL VOLUME 101.5 FL (80.0-100.0); MEAN CORPUSCULAR HEMOGLOBIN 33.5 PG (27.0-34.0); MEAN PLATELET VOLUME 9.4 FL (7.0-11.0); MONO % 10.2 % (0.0-8.0); MONOCYTE # 0.6 TH/MM3 (0-0.9); NEUT % 67.8 % (16.0-70.0); PLATELET COUNT 188 TH/MM3 (150-450); RED BLOOD COUNT 3.73 MIL/MM3 (4.00-5.30); RED CELL DISTRIBUTION WIDTH 22.6 % (11.6-17.2); WHITE BLOOD COUNT 5.8 TH/MM3 (4.0-11.0)
[2017-07-30 10:01] LABS: ALBUMIN 3.6 GM/DL (3.4-5.0); ALT (GPT) 75 U/L (10-53); AST (GOT) 69 U/L (15-37); BICARBONATE 27.4 MEQ/L (21.0-32.0); BLOOD UREA NITROGEN 23 MG/DL (7-18); CALCIUM 8.9 MG/DL (8.5-10.1); CHLORIDE 102 MEQ/L (98-107); CREATININE 1.45 MG/DL (0.50-1.00); GLOMERULAR FILTRATION RATE 36 ML/MIN (>89); GLUCOSE,RANDOM 122 MG/DL (74-106); LIPASE 137 U/L (73-393); SODIUM (NA) 141 MEQ/L (136-145)
[2017-07-30 10:04] LABS: ALKALINE PHOSPHATASE 311 U/L (45-117); TOTAL PROTEIN 6.9 GM/DL (6.4-8.2)
--- NOTE | 2017-07-30 10:26 | RADRPT ---
EXAM DATE/TIME: 07/30/2017 10:02 [facility] COMPARISON: CT ABDOMEN & PELVIS W CONTRAST, July 21, 2017, 13:31. INDICATIONS : Abdominal pain ORAL CONTRAST: No oral contrast ingested. RADIATION DOSE: 14.66 CTDIvol (mGy) MEDICAL HISTORY : Cardiovascular disease. Deep venous thrombosis. Diabetes SURGICAL HISTORY : None. ENCOUNTER: Initial ACUITY: 1 yr PAIN SCALE: 8/10 LOCATION: epigastric abdominal TECHNIQUE: Volumetric scanning of the abdomen and pelvis was performed. Using automated exposure control and ad justment of the mA and/or kV according to patient size, radiation dose was kept as low as reasonably achievable to obtain optimal diagnostic quality images. DICOM format image data is available electro nically for review and comparison. FINDINGS: CT Abdomen: The liver, spleen, pancreas, kidneys, adrenals are unremarkable. There is no evidence for any appreciable pathological adenopathy, free fluid, or bowel obstruction. Bilateral pleural effusi ons are present to a slight degree worse on the left. The gallbladder demonstrates multiple stones wi thout gallbladder wall thickening, or pericholecystic fluid. There is slight degree of anasarca with haziness of the abdominal and pelvic fat planes. There is slight fluid in the perihepatic space and i n the cul-de-sac. Slight bibasilar , right middle lobe, lingula atelectasis and/or infiltrate is seen . Chronic vascular calcifications are present involving the aorta, iliac arteries and the visceral ar teries discussed on the patient's prior CT examination. CT pelvis: There are fibroids the largest one measures 2.5 cm in size and some of them are calcified. CONCLUSION: 1. Cholelithiasis. 2. Small bilateral pleural effusions and slight anasarca. 3. Uterine fibroids. 4. Chronic episodic changes of multiple visceral arteries and not changed KIraida Fang MD on July 30, 2017 at 10:18 Board Certified Radiologist. This report was verified electronically.
[2017-07-30 10:39] LABS: AMORPHOUS SEDIMENT, URINE OCC; BACTERIA, URINE RARE /hpf; BILIRUBIN, URINE NEG (NEG); BLOOD, URINE TRACE (NEG); GLUCOSE,URINE NEG (NEG); HYALINE CAST, URINE 30 /lpf (RARE); KETONE, URINE NEG (NEG); MUCUS URINE FEW /lpf (OCC); NITRITE,URINE NEG (NEG); PH, URINE 5.5 (5.0-8.5); SQUAMOUS EPITHELIAL CELL URINE 3 /hpf (0-5); TRANSITIONAL EPI CELLS, URINE <1 /hpf; URINE COLOR YELLOW (YELLW/STRAW); URINE LEUKOCYTE ESTERASE TRACE (NEG)
[2017-07-30] MEDS ORDERED: MORPHINE SULFATE 2 MG/ML INJ IV PUSH ONE (11:30)
[2017-07-30] MEDS ORDERED: cefTRIAXone INJ 1,000 MG in SODIUM CHLORIDE 0.9% INJ 100 ML IV ONE (13:15)
[2017-07-30] MEDS ORDERED: MORPHINE SULFATE 4 MG/ML INJ IV PUSH ONE (13:45)
[2017-07-30 15:16] VITALS: BP 164/84; PULSE 70; RESP 15; O2SAT 100
--- NOTE | 2017-07-30 15:25 | PD.CONS ---
HPI History of Present Illness This is a 71 year old morbid obese female admitted for uncontrolled abdominal pain predominantly in the epigastric and gastric region. Patient is drowsy from pain medication is at her bedside and is giving most of her information or it's been obtained from the record. states patient just went home from [facility] in [place] on with some of the same abdominal pain symptoms. Her pain seemed to worsen around August 2016; she does have symptoms of acute onset of bloating with her pain 10 out of 10, doesn't seem to be related to eating. According to the record patient has a high-grade stenosis of the celiac SMA; she also has gallstones. is very hopeful for her recovery, but does know that she is not a surgical candidate for her celiac SMA. 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 Toes just healed in April 2017. At this point in time patient is poor historian, drowsy, gives out on occasional moan, but no facial grimace since receiving her pain meds. Currently states patient has had not had any nausea or vomiting, no diarrhea no constipation, no dysphagia. 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 Left extremity DVT Gallstones Anticoagulant therapy Chest pain GI disorders according to the record Acute kidney failure Hyperlipidemia (Carrie Hall) Coded Allergies: aspirin (Verified Allergy, Intermediate, hives, 07/30/17) Iodinated Contrast- Oral and IV Dye (Verified Adverse Reaction, Severe, kidney failure, 07/30/17) Medications Cataracts Social History No known tobacco or alcohol or illicit drugs according to the record She is at her bedside (Carrie Hall) GI Exam Vitals I&O Vital Signs Date Time Temp Pulse Resp B/P (MAP) Pulse Ox O2 Delivery O2 Flow Rate FiO2 07/30/17 09:02 98.7 81 17 169/110 (129) 96 I/O 07/29/17 07/29/17 07/29/17 07/30/17 07/30/17 07/30/17 07:00 15:00 23:00 07:00 15:00 23:00 Intake Total 100 ml Balance 100 ml Intake IV Total 100 ml Imaging Last Impressions Abdomen/Pelvis CT 07/30/17927 Signed Impressions: Service Date/Time: Sunday, July 30, 2017 10:02 - CONCLUSION: 1. Cholelithiasis. 2. Small bilateral pleural effusions and slight anasarca. 3. Uterine fibroids. 4. Chronic episodic changes of multiple visceral arteries and not changed K. Taj Fang MD Laboratory Test 07/30/17 09:35 07/30/17 09:45 White Blood Count 5.8 TH/MM3 Red Blood Count 3.73 MIL/MM3 Hemoglobin 12.5 GM/DL Hematocrit 37.9 % Mean Corpuscular Volume 101.5 FL Mean Corpuscular Hemoglobin 33.5 PG Mean Corpuscular Hemoglobin Concent 33.0 % Red Cell Distribution Width 22.6 % Platelet Count 188 TH/MM3 Mean Platelet Volume 9.4 FL Neutrophils (%) (Auto) 67.8 % Lymphocytes (%) (Auto) 19.1 % Monocytes (%) (Auto) 10.2 % Eosinophils (%) (Auto) 2.1 % Basophils (%) (Auto) 0.8 % Neutrophils # (Auto) 3.9 TH/MM3 Lymphocytes # (Auto) 1.1 TH/MM3 Monocytes # (Auto) 0.6 TH/MM3 Eosinophils # (Auto) 0.1 TH/MM3 Basophils # (Auto) 0.0 TH/MM3 CBC Comment DIFF FINAL Differential Comment Blood Urea Nitrogen 23 MG/DL Creatinine 1.45 MG/DL Random Glucose 122 MG/DL Total Protein 6.9 GM/DL Albumin 3.6 GM/DL Calcium Level 8.9 MG/DL Alkaline Phosphatase 311 U/L Aspartate Amino Transf (AST/SGOT) 69 U/L Alanine Aminotransferase (ALT/SGPT) 75 U/L Total Bilirubin 2.0 MG/DL Sodium Level 141 MEQ/L Potassium Level 3.6 MEQ/L Chloride Level 102 MEQ/L Carbon Dioxide Level 27.4 MEQ/L Anion Gap 12 MEQ/L Estimat Glomerular Filtration Rate 36 ML/MIN Lipase 137 U/L Urine Color YELLOW Urine Turbidity HAZY Urine pH 5.5 Urine Specific [place] 1.019 Urine Protein 100 mg/dL Urine Glucose (UA) NEG mg/dL Urine Ketones NEG mg/dL Urine Occult Blood TRACE Urine Nitrite NEG Urine Bilirubin NEG Urine Urobilinogen LESS THAN 2.0 MG/DL Urine Leukocyte Esterase TRACE Urine RBC 2 /hpf Urine WBC 4 /hpf Urine Squamous Epithelial Cells 3 /hpf Urine Transitional Epithelial Cells <1 /hpf Urine Amorphous Sediment OCC Urine Bacteria RARE /hpf Urine Hyaline Casts 30 /lpf Urine Mucus FEW /lpf Urine Yeast (Budding) RARE Microscopic Urinalysis Comment CATH-CULTURE IND Date/Time Source Procedure Growth Status 07/30/17 09:45 Urine Catheterized Urine Urine Culture Pending Received Physical Examination HEENT: Pupils round and reactive to light; normocephalic; atraumatic; facial color pale, oral cavity clean, mild scleral icterus NECK: Neck is supple CHEST: Chest is diminished breath sounds and low volumes but no audible rhonchi CARDIAC: Distant ABDOMEN: Large, round, taut , mild bloating, mild epigastric abdominal pain to light palpation;bowel sounds are soft EXTREMITIES: Lower extremity 2+ over 4+ edema, amputations toes left foot, recent but healed SKIN: Pale, thin turgor no rash; CRUTCH MAKER: Drowsy, unable to answer any questions now (Carrie Hall) Assessment and Plan Assessment: (1) Cholelithiasis ICD Codes: K80.20 - Calculus of gallbladder without cholecystitis without obstruction (2) Bloating ICD Codes: R14.0 - Abdominal distension (gaseous) (3) Elevated LFTs ICD Codes: R79.89 - Other specified abnormal findings of blood chemistry (4) Intractable abdominal pain ICD Codes: R10.9 - Unspecified abdominal pain Status: Acute Plan Plan for MRCP without contrast to evaluate cholelithiasis and possible obstruction. Nothing by mouth for now, we'll consider clear liquids if patient is more alert Recheck labs in the morning, monitor LFTs, bilirubin and alkaline phosphatase Monitor for any acute GI bleed or hemorrhage PPI IV Plan of care and procedures will be based on patient's needs and cardiology clearance Recommend cardiology eval and clearance for any procedures which would include possible future ERCP/EGD which would require sedation. Possible biliary drain from IR dependent on test results Consider palliative care consult if patient cannot have procedures to alleviate her symptoms, currently patient is full code full aggressive care This patient has been seen by myself and Dr. Barrow, no was done on his behalf (Carrie Hall) Assessment: (1) Cholelithiasis ICD Codes: K80.20 - Calculus of gallbladder without cholecystitis without obstruction Plan: HIDA scan, MRCP -ve for obstruction (2) Bloating ICD Codes: R14.0 - Abdominal distension (gaseous) Plan: Colonoscopy when possible (3) Elevated LFTs ICD Codes: R79.89 - Other specified abnormal findings of blood chemistry Plan: HIDA scan, repeat labs (4) Intractable abdominal pain ICD Codes: R10.9 - Unspecified abdominal pain Status: Acute Plan: IR, general surgery consults. Egd/colonoscopy when able. Can not do prep at this time. Plan Dr. Barrow to follow from tomorrow. (Georges Manrique MD) Carrie Hall Jul 30, 2017 15:25 Georges Manrique MD Jul 30, 2017 19:39
[2017-07-30] MEDS: PANTOPRAZOLE SODIUM 40 MG VIAL IV PUSH SCH (15:55)
--- NOTE | 2017-07-30 16:33 | HHI.HP ---
[facility] Lorenzo Oviedo MD Admission Diagnosis Intractable abdominal pain, elevated LFTs Diagnoses: Travel History International Travel<30 Days: No Contact w/Intl Traveler <30 Da: No Traveled to Known Affected Are: No History of Present Illness 71 years old morbidly obese female presented to the ED complaining of chronically unbearable abdominal pain mostly in the epigastric area but can generalized. I came to see the patient she was oriented he got 4 mg of morphine which make her slightly drowsy she was unable to give good history, her was at the bedside he was in the best historian either, patient has a history of chronic abdominal pain she has been seen recently by vascular surgery with a possible SMA syndrome but she was told she wasn't a candidate for surgical intervention.. Patient visited [facility] in [place] on a for the same complaint her symptoms was worsening since August 2016. 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 Most of the history was obtained from the as I mentioned above, patient was able to open her eyes she was moaning but mostly drowsy. 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 Left extremity DVT Gallstones Anticoagulant therapy Chest pain GI disorders according to the record Acute kidney failure Hyperlipidemia Allergies: Coded Allergies: aspirin (Verified Allergy, Intermediate, hives, 07/30/17) Iodinated Contrast- Oral and IV Dye (Verified Adverse Reaction, Severe, kidney failure, 07/30/17) Family History Unable to obtain family history patient is drowsy Social History Denied tobacco alcohol or illicit drug abuse Physical Exam Vital Signs Vital Signs Date Time Temp Pulse Resp B/P (MAP) Pulse Ox O2 Delivery O2 Flow Rate FiO2 07/30/17 15:16 70 15 164/84 (110) 100 Room Air 07/30/17 09:02 98.7 81 17 169/110 (049) 96 Physical Exam GENERAL: This is obese patient drowsy SKIN: No rashes, warm and dry HEAD: Atraumatic. Normocephalic. EYES: Pupils equal round and reactive. Extraocular motions intact. No scleral icterus. ENT: Nose without bleeding, or drainage, Airway patent. NECK: Trachea midline. Supple CARDIOVASCULAR: Regular rate and rhythm without murmurs, gallops, or rubs. RESPIRATORY: Fair air entry bilaterally. No wheezes, rales, or rhonchi. GASTROINTESTINAL: Abdomen soft, tender to palpation mostly on the upper transfers abdomen, nondistended. Positive bowel sounds MUSCULOSKELETAL: Extremities without clubbing, cyanosis, +2 edema pedal pulses appreciated NEUROLOGICAL: Awake and alert. Moves all extremity. Normal speech.no focal neurological deficit Laboratory Laboratory Tests Test 07/30/17 09:35 07/30/17 09:45 White Blood Count 5.8 Red Blood Count 3.73 Hemoglobin 12.5 Hematocrit 37.9 Mean Corpuscular Volume 101.5 Mean Corpuscular Hemoglobin 33.5 Mean Corpuscular Hemoglobin Concent 33.0 Red Cell Distribution Width 22.6 Platelet Count 188 Mean Platelet Volume 9.4 Neutrophils (%) (Auto) 67.8 Lymphocytes (%) (Auto) 19.1 Monocytes (%) (Auto) 10.2 Eosinophils (%) (Auto) 2.1 Basophils (%) (Auto) 0.8 Neutrophils # (Auto) 3.9 Lymphocytes # (Auto) 1.1 Monocytes # (Auto) 0.6 Eosinophils # (Auto) 0.1 Basophils # (Auto) 0.0 CBC Comment DIFF FINAL Differential Comment Blood Urea Nitrogen 23 Creatinine 1.45 Random Glucose 122 Total Protein 6.9 Albumin 3.6 Calcium Level 8.9 Alkaline Phosphatase 311 Aspartate Amino Transf (AST/SGOT) 69 Alanine Aminotransferase (ALT/SGPT) 75 Total Bilirubin 2.0 Sodium Level 141 Potassium Level 3.6 Chloride Level 102 Carbon Dioxide Level 27.4 Anion Gap 12 Estimat Glomerular Filtration Rate 36 Lipase 137 Urine Color YELLOW Urine Turbidity HAZY Urine pH 5.5 Urine Specific [place] 1.019 Urine Protein 100 Urine Glucose (UA) NEG Urine Ketones NEG Urine Occult Blood TRACE Urine Nitrite NEG Urine Bilirubin NEG Urine Urobilinogen LESS THAN 2.0 Urine Leukocyte Esterase TRACE Urine RBC 2 Urine WBC 4 Urine Squamous Epithelial Cells 3 Urine Transitional Epithelial Cells <1 Urine Amorphous Sediment OCC Urine Bacteria RARE Urine Hyaline Casts 30 Urine Mucus FEW Urine Yeast (Budding) RARE Microscopic Urinalysis Comment CATH-CULTURE IND Date/Time Source Procedure Growth Status 07/30/17 09:45 Urine Catheterized Urine Urine Culture Pending Received Result Diagram: 07/30/17 0935 07/30/17 0935 Imaging Last Impressions Abdomen/Pelvis CT 07/30/17 0928 Signed Impressions: Service Date/Time: Sunday, July 30, 2017 10:02 - CONCLUSION: 1. Cholelithiasis. 2. Small bilateral pleural effusions and slight anasarca. 3. Uterine fibroids. 4. Chronic episodic changes of multiple visceral arteries and not changed K. Taj Fang MD Hepatobiliary Scan Nuclear Medicine 07/30/17 0000 Signed Impressions: Service Date/Time: Sunday, July 30, 2017 21:57 - CONCLUSION: 1. Lack of visualization of the bowel concerning for common bile duct obstruction. Silvestre Gallego Jr., MD Cholangiopancreatography MRI 07/30/17 0000 Signed Impressions: Service Date/Time: Sunday, July 30, 2017 16:41 - CONCLUSION: 1. Cholelithiasis 2. No evidence of common duct stone MD Jd Ibarra VTE Risk Assessment Caprini VTE Risk Assessment: Mod/High Risk (score >= 2) Caprini Risk Assessment Model Point Value = 1 Point Value = 2 Point Value = 3 Point Value = 5 Age 41-60 Minor surgery BMI > 25 kg/m2 Swollen legs Varicose veins or History of unexplained or recurrent spontaneous Oral contraceptives or hormone replacement Sepsis (< 1 month) Serious lung disease, including pneumonia (< 1 month) Abnormal pulmonary function Acute myocardial infarction Congestive heart failure (< 1 month) History of inflammatory bowel disease Medical patient at bed rest Age 61-74 Arthroscopic surgery Major open surgery (> 45 min) Laparoscopic surgery (> 45 min) Malignancy Confined to bed (> 72 hours) Immobilizing plaster cast Central venous access Age >= 75 History of VTE Family history of VTE Factor V Leiden Prothrombin [id number] Lupus anticoagulant Anticardiolipin antibodies Elevated serum homocysteine Heparin-induced thrombocytopenia Other congenital or acquired thrombophilia Stroke (< 1 month) Elective arthroplasty Hip, pelvis, or leg fracture Acute spinal cord injury (< 1 month) Prophylaxis Regimen Total Risk Factor Score Risk Level Prophylaxis Regimen 0-1 Low Early ambulation 2 Moderate Order ONE of the following: *Sequential Compression Device (SCD) *Heparin 5000 units SQ BID 3-4 Higher Order ONE of the following medications: *Heparin 5000 units SQ TID *Enoxaparin/Lovenox 40 mg SQ daily (WT < 150 kg, CrCl > 30 mL/min) *Enoxaparin/Lovenox 30 mg SQ daily (WT < 150 kg, CrCl > 10-29 mL/min) *Enoxaparin/Lovenox 30 mg SQ BID (WT < 150 kg, CrCl > 30 mL/min) AND/OR *Sequential Compression Device (SCD) 5 or more Highest Order ONE of the following medications: *Heparin 5000 units SQ TID (Preferred with Epidurals) *Enoxaparin/Lovenox 40 mg SQ daily (WT < 150 kg, CrCl > 30 mL/min) *Enoxaparin/Lovenox 30 mg SQ daily (WT < 150 kg, CrCl > 10-29 mL/min) *Enoxaparin/Lovenox 30 mg SQ BID (WT < 150 kg, CrCl > 30 mL/min) AND *Sequential Compression Device (SCD) Assessment and Plan Assessment and Plan Acute on chronic abdominal pain is epigastric Increase transaminase History of PE and DVT CHF seems to be in decompensation with +2 edema in the lower extremity and BMP 2661 DVT prophylaxis Plan: Admit to observation, I&O, telemetry, lasix iv, aldactone cardio consult for clearance for possible GI procedure GI consult appreciated their input plan for MRCP possible ERCP Discussed Condition With Patient in ED physician Dylon Winter MD Jul 30, 2017 16:33
[2017-07-30] MEDS ORDERED: GLUCAGON 1 MG/ML VIAL OTHER PRN (16:45)
[2017-07-30] MEDS ORDERED: DEXTROSE 50% IN WATER 50 ML VIAL(D50) IV PUSH PRN (16:45)
--- NOTE | 2017-07-30 17:39 | RADRPT ---
EXAM DATE/TIME: 07/30/2017 16:41 [facility] COMPARISON: CT ABDOMEN & PELVIS W/O CONTRAST, July 30, 2017, 10:02. INDICATIONS : Obstruction. MEDICAL HISTORY : Diabetes mellitus type 2. SURGICAL HISTORY : Lower extremity vascular stent. Toes amputated, left foot. ENCOUNTER: Subsequent ACUITY: 1 day PAIN SCORE: Nonresponsive. LOCATION: Abdomen. TECHNIQUE: Multiplanar, multisequence magnetic resonance imaging of the abdomen was performed. High-resolution 3D dataset was utilized to reconstruct maximum-intensity projection (MIP) images. FINDINGS: Small right effusion is present. There is eventration of the right hemidiaphragm. There are multiple stones within the gallbladder without wall thickening or pericholecystic fluid the largest measuring 2 mm. Examination of biliary tree with multiplanar and 3-D reconstruction demonstrates no evidence of common duct stone. No intrahepatic or extra hepatic ductal dilatation is identified. The pancreatic duct is unremarkable. CONCLUSION: 1. Cholelithiasis 2. No evidence of common duct stone Herman Rodríguez MD on July 30, 2017 at 17:31 Board Certified Radiologist. This report was verified electronically.
[2017-07-30 18:10] VITALS: BP 142/75; PULSE 72; RESP 20; TEMP 98; O2SAT 100
[2017-07-30] MEDS: INSULIN ASPART SUPPLEMENTAL SCALE SQ SCH ×2 (18:26→21:00)
[2017-07-30] MEDS: SPIRONOLACTONE 25 MG TAB PO SCH (18:40)
[2017-07-30] MEDS: FUROSEMIDE 40 MG/4 ML VIAL IV PUSH SCH (18:41)
[2017-07-30 20:00] VITALS: BP 140/81; PULSE 72; RESP 16; TEMP 97.6; O2SAT 100; O2SAT 99
[2017-07-30] MEDS: ATORVASTATIN 10 MG TAB PO SCH (21:00)
[2017-07-30] MEDS: CARVEDILOL 3.125 MG TAB PO SCH (21:00)
[2017-07-31] VITALS (11 sets, daily range): BP systolic 135–155; BP diastolic 74–90; PULSE 68–78; RESP 16–21; TEMP 97.4–98; O2SAT 94–98
--- NOTE | 2017-07-31 00:25 | RADRPT ---
EXAM DATE/TIME: 07/30/2017 21:57 [facility] COMPARISON: MRCP W/O CONTRAST, July 30, 2017, 16:41. CT ABDOMEN & PELVIS W/O CONTRAST, July 30, 2017, 10:0 2. INDICATIONS : Intractable abdominal pain. DOSE: 4.4 mCi Tc99m Mebrofenin IV MEDICAL HISTORY : Congestive hearrt failure. Diabetes mellitus type 2. Hypercholesterolemia. Myocardial infarction. SURGICAL HISTORY : Left foot. ENCOUNTER: Initial ACUITY: 3 days PAIN SCALE: 7/10 LOCATION: Right upper quadrant TECHNIQUE: Following the intravenous administration of radiotracer, dynamic sequential images were performed wit h continuous acquisition. FINDINGS: HEPATIC KINETICS: There is prompt uptake of radiotracer in the liver. No focal defects are seen. There is normal rate of washout from the hepatic parenchyma. BILIARY CLEARANCE: Activity is first seen in the extrahepatic biliary system at 15 minutes. There is no excretion obser mehnaz in the bowel. GALLBLADDER: Activity is first seen in the gallbladder at 40 minutes. Common bile duct kinetics are normal and th ere is no evidence of biliary obstruction. BILIARY ENTRIC REFLUX: None observed. CONCLUSION: 1. Lack of visualization of the bowel concerning for common bile duct obstruction. Silvestre Gallego Jr., MD on July 31, 2017 at 0:15 Board Certified Radiologist. This report was verified electronically.
[2017-07-31] MEDS: PANTOPRAZOLE SODIUM 40 MG VIAL IV PUSH SCH ×2 (04:17→19:13)
[2017-07-31 06:20] LABS: ALBUMIN 3.4 GM/DL (3.4-5.0); AST (GOT) 53 U/L (15-37); BICARBONATE 26.8 MEQ/L (21.0-32.0); BLOOD UREA NITROGEN 23 MG/DL (7-18); CALCIUM 8.9 MG/DL (8.5-10.1); CHLORIDE 103 MEQ/L (98-107); CREATININE 1.27 MG/DL (0.50-1.00); GLOMERULAR FILTRATION RATE 41 ML/MIN (>89); GLUCOSE,RANDOM 94 MG/DL (74-106); SODIUM (NA) 141 MEQ/L (136-145)
[2017-07-31 06:23] LABS: ALKALINE PHOSPHATASE 279 U/L (45-117); ALT (GPT) 66 U/L (10-53); TOTAL BILIRUBIN ADULT 1.8 MG/DL (0.2-1.0); TOTAL PROTEIN 6.5 GM/DL (6.4-8.2)
[2017-07-31] MEDS: FUROSEMIDE 40 MG/4 ML VIAL IV PUSH SCH ×2 (09:00→19:13)
[2017-07-31] MEDS ORDERED: PANTOPRAZOLE SOD 40 MG DELAYED RELEASE TAB PO SCH (09:00)
[2017-07-31] MEDS: CARVEDILOL 3.125 MG TAB PO SCH ×2 (09:53→21:45)
[2017-07-31] MEDS: SPIRONOLACTONE 25 MG TAB PO SCH (09:53)
[2017-07-31] MEDS: CLOPIDOGREL 75 MG TAB PO SCH ×2 (09:53→11:37)
[2017-07-31] MEDS: INSULIN ASPART SUPPLEMENTAL SCALE SQ SCH ×4 (09:54→21:00)
--- NOTE | 2017-07-31 10:21 | HHI.PR ---
Subjective Remarks f/u; abdominal pain/ elevated LFT's in no acute distress. abdominal pain is better. no nausea or vomiting. Objective Vitals Vital Signs Date Time Temp Pulse Resp B/P (MAP) Pulse Ox O2 Delivery O2 Flow Rate FiO2 07/31/17 07:48 98.0 75 20 136/76 (96) 98 07/31/17 07:18 98 Nasal Cannula 07/31/17 06:00 71 07/31/17 05:50 98.0 74 16 155/90 (111) 98 07/31/17 00:25 74 07/30/17 20:00 97.6 72 16 140/81 (100) 100 07/30/17 20:00 99 Nasal Cannula 2.00 07/30/17 18:10 98.0 72 20 142/75 (97) 100 07/30/17 16:55 07/30/17 15:16 70 15 164/84 (110) 100 Room Air I/O 07/30/17 07/30/17 07/30/17 07/31/17 07/31/17 07/31/17 07:00 15:00 23:00 07:00 15:00 23:00 Intake Total 100 ml Balance 100 ml Intake IV Total 100 ml # Voids 1 Result Diagram: 07/30/17 0935 07/31/17 0506 Imaging Last Impressions Abdomen/Pelvis CT 07/30/17 0928 Signed Impressions: Service Date/Time: Sunday, July 30, 2017 10:02 - CONCLUSION: 1. Cholelithiasis. 2. Small bilateral pleural effusions and slight anasarca. 3. Uterine fibroids. 4. Chronic episodic changes of multiple visceral arteries and not changed K. Taj Fang MD Hepatobiliary Scan Nuclear Medicine 07/30/17 0000 Signed Impressions: Service Date/Time: Sunday, July 30, 2017 21:57 - CONCLUSION: 1. Lack of visualization of the bowel concerning for common bile duct obstruction. Silvestre Gallego Jr., MD Cholangiopancreatography MRI 07/30/17 0000 Signed Impressions: Service Date/Time: Sunday, July 30, 2017 16:41 - CONCLUSION: 1. Cholelithiasis 2. No evidence of common duct stone Herman Rodríguez MD Objective Remarks GENERAL: This is a well-nourished, well-developed patient, in no apparent distress. CARDIOVASCULAR: Regular rate and regular rhythm without murmurs, gallops, or rubs. RESPIRATORY: Clear to auscultation. Breath sounds equal bilaterally. No wheezes , rales, or rhonchi. GASTROINTESTINAL: Abdomen soft, non-tender, nondistended. Normal, active bowel sounds MUSCULOSKELETAL: Extremities without clubbing, cyanosis, or edema. NEURO: Alert & Oriented x4 to person, place, time, situation. Moves all ext x4 Medications and IVs Inpatient Medications Atorvastatin Calcium (Lipitor) 10 mg HS PO ; Start 07/30/17 at 21:00 Carvedilol (Coreg) 3.125 mg BID PO Last administered on 07/31/17at 09:53; Start 07/30/17 at 21:00 Ceftriaxone Sodium 1000 mg/ Sodium Chloride 100 ml @ 200 mls/hr ONCE ONCE IV Last administered on 07/30/17at 13:45; Start 07/30/17 at 13:15; Stop 07/30/17 at 13: 44; Status DC Clopidogrel Bisulfate (Plavix) 75 mg DAILY PO ; Start 07/31/17 at 09:00 Dextrose (D50w (Vial) Inj) 50 ml UNSCH PRN IV PUSH HYPOGLYCEMIA-SEE COMMENTS; Start 07/30/17 at 16:45 Furosemide (Lasix Inj) 40 mg BID@09,18 IV PUSH Last administered on 07/31/17at 09 :00; Start 07/30/17 at 18:00 Glucagon (Glucagon Inj) 1 mg UNSCH PRN OTHER HYPOGLYCEMIA-SEE COMMENTS; Start 07/30/17 at 16:45 Insulin Aspart (NovoLOG SUPPLEMENTAL SCALE) 1 ACHS SLIDING SCALE SQ ; Start 07/30/17 at 17:00 Morphine Sulfate (Morphine Inj) 4 mg ONCE ONCE IV PUSH Last administered on 07/30/17at 13:45; Start 07/30/17 at 13:45; Stop 07/30/17 at 13:46; Status DC Pantoprazole Sodium (Protonix Inj) 40 mg Q12H IV PUSH Last administered on at 04:17; Start 07/30/17 at 16:00 Spironolactone (Aldactone) 25 mg DAILY PO Last administered on 07/31/17at 09:53; Start 07/30/17 at 17:00 A/P Assessment and Plan A/P abdominal pain with elevated LFT's HIDA with possible common duct obstruction GI consult appreciated; possible ERCP. cardiology consulted for clearance. History of PE and DVT; eliquis on hold for possible procedure; will resume when ok with GI. CHF seems to be in decompensation with +2 edema in the lower extremity and BNP 4678; acute on chronic systolic. continue Lasix- continue to monitor clinically. DVT prophylaxis; will resume Eliquis when ok with GI. Denise Chester MD Jul 31, 2017 10:21
[2017-07-31 11:32] LABS: PROTHROMBIN TIME - PATIENT 20.2 SEC (9.8-11.6)
--- NOTE | 2017-07-31 12:35 | EKG ---
Date Performed: 07/30/2017 Time Performed: 13:39:48 PTAGE: 71 years EKG: Sinus rhythm LOW QRS VOLTAGE IN EXTREMITY LEADS POSSIBLE ANTERIOR MYOCARDIAL INFARCTION ABNORMAL ECG PREVIOUS TRACING : 07/21/2017 18.20 DOCTOR: Jeff Winter Interpretating Date/Time 07/31/2017 12:34:11
--- NOTE | 2017-07-31 13:27 | PD.RAD ---
Radiology Note 71y/o obese, severely debilitated female with severe, intermittent abdominal pain of uncertain etiology. CT examination demonstrates celiac origin high grade stenosis with a patent SMA and TAO. The patient is currently on elequis and plavix. GI service request an angio with stenting of the celiac origin. A/P 1. The patients abdominal pain possibly related to the celiac stenosis however with a patient SMA and TAO this is less likely. She is presently undergoing cardiac clearance (BNP 4678) and is not a candidate for sedation and an invasive procedure. 2. Will consider stenting the celiac if cleared by cardiology. 3. Pt. is maximally medically managed for the stenosis with the plavix and Elequis. 4. Please reconsult when cardiac clearance obtained. Yogesh Moy MD Jul 31, 2017 13:27
--- NOTE | 2017-07-31 14:48 | HHI.GIFU ---
Subjective Remarks Pt resting in bed in NAD. Daughter at bedside. Pt is hungry. Objective Vitals I&O Vital Signs Date Time Temp Pulse Resp B/P (MAP) Pulse Ox O2 Delivery O2 Flow Rate FiO2 07/31/17 11:12 97.5 73 20 135/88 (104) 97 07/31/17 07:48 98.0 75 20 136/76 (96) 98 07/31/17 07:18 98 Nasal Cannula 07/31/17 06:00 71 07/31/17 05:50 98.0 74 16 155/90 (111) 98 07/31/17 00:25 74 07/30/17 20:00 97.6 72 16 140/81 (100) 100 07/30/17 20:00 99 Nasal Cannula 2.00 07/30/17 18:10 98.0 72 20 142/75 (97) 100 07/30/17 16:55 07/30/17 15:16 70 15 164/84 (110) 100 Room Air I/O 07/30/17 07/30/17 07/30/17 07/31/17 07/31/17 07/31/17 07:00 15:00 23:00 07:00 15:00 23:00 Intake Total 100 ml Balance 100 ml Intake IV Total 100 ml # Voids 1 Laboratory Laboratory Tests Test 07/31/17 05:06 07/31/17 10:35 Blood Urea Nitrogen 23 Creatinine 1.27 Random Glucose 94 Total Protein 6.5 Albumin 3.4 Calcium Level 8.9 Alkaline Phosphatase 279 Aspartate Amino Transf (AST/SGOT) 53 Alanine Aminotransferase (ALT/SGPT) 66 Total Bilirubin 1.8 Sodium Level 141 Potassium Level 3.6 Chloride Level 103 Carbon Dioxide Level 26.8 Anion Gap 11 Estimat Glomerular Filtration Rate 41 B-Type Natriuretic Peptide 4678 Prothrombin Time 20.2 Prothromb Time International Ratio 2.0 Activated Partial Thromboplast Time 38.3 Date/Time Source Procedure Growth Status 07/30/17 09:45 Urine Catheterized Urine Urine Culture - Preliminary Yeast-Id To Follow Resulted Imaging Last Impressions Abdomen/Pelvis CT 07/30/17927 Signed Impressions: Service Date/Time: Sunday, July 30, 2017 10:02 - CONCLUSION: 1. Cholelithiasis. 2. Small bilateral pleural effusions and slight anasarca. 3. Uterine fibroids. 4. Chronic episodic changes of multiple visceral arteries and not changed K. Taj Fang MD Hepatobiliary Scan Nuclear Medicine 07/30/17 0000 Signed Impressions: Service Date/Time: Sunday, July 30, 2017 21:57 - CONCLUSION: 1. Lack of visualization of the bowel concerning for common bile duct obstruction. Silvestre Gallego Jr., MD Cholangiopancreatography MRI 07/30/17 0000 Signed Impressions: Service Date/Time: Sunday, July 30, 2017 16:41 - CONCLUSION: 1. Cholelithiasis 2. No evidence of common duct stone Herman Rodríguez MD Physical Exam HEENT: normocephalic; atraumatic; no jaundice. CHEST: CTA CARDIAC: RRR ABDOMEN: Soft, obese, nontender; no hepatosplenomegaly; bowel sounds are present in all four quadrants. EXTREMITIES: No clubbing, cyanosis, + BLE edema. SKIN: Normal; no rash; no jaundice. GLASS EMBOSSER: lethargic Assessment and Plan Assessment: (1) Cholelithiasis ICD Codes: K80.20 - Calculus of gallbladder without cholecystitis without obstruction Plan: HIDA concerning for CBD obstruction , MRCP -ve for obstruction but does show gallstones will need ERCP with cardiac clearance. (2) Bloating ICD Codes: R14.0 - Abdominal distension (gaseous) Plan: Colonoscopy when possible (3) Elevated LFTs ICD Codes: R79.89 - Other specified abnormal findings of blood chemistry Plan: LFTs remain elevated (4) Intractable abdominal pain ICD Codes: R10.9 - Unspecified abdominal pain Status: Acute Plan: IR to consider celiac stenting with cardiac clearance. general surgery consult is pending. Egd/colonoscopy when able. Can not do prep at this time. Plan - ok for clear liquids from GI standpoint, it appears IR has made her NPO - await cardiology eval/clearance - ERCP if cleared by cardiology and after any IR interventions to stent Celiac - supportive care Pt d/w Dr Barrow and this note is written on his behalf Jacinda Dunn Jul 31, 2017 14:48
--- NOTE | 2017-07-31 14:54 | PD.CONS ---
cc: Que Leon MD [facility] Service General Surgery Consult Requested By Dr. Winter Reason for Consult Abdominal Pain Primary Care Physician Lorenzo Oviedo MD History of Present Illness This is a 71 year old female with a past medical history of diabetes mellitus, cardiovascular disease, CHF, celiac SMA, gallstones, acute kidney injury and hypercholesteremia. The patient has had multiple hospitalizations in the last three weeks for abdominal pain that begins after eating anything. A CT abd/ pelvis was obtained which shows gallstones with an chronic episodic change of multiple visceral arteries that have not changed. An MRCP was complete which shows no evidence of a common duct stone. The patient does have mildly elevated liver enzymes. She also had a urinary tract infection. Interventional Radiology has been consulted for possible stent placement for her celiac. At this point, the patient is a high cardiac risk for any procedure. A General Surgery consultation has been requested for evaluation of abdominal pain. Review of Systems Constitutional: DENIES: Fatigue, Change in appetite Endocrine: DENIES: Polydipsia, Polyuria, Polyphagia Eyes: DENIES: Eye inflammation Respiratory: DENIES: Cough, Wheezing Cardiovascular: DENIES: Chest pain Gastrointestinal: COMPLAINS OF: Abdominal pain, DENIES: Nausea, Vomiting Genitourinary: DENIES: Urinary frequency Musculoskeletal: DENIES: Joint pain Integumentary: DENIES: Abnormal pigmentation Hematologic/lymphatic: DENIES: Bruising Neurologic: DENIES: Headache, Seizures Psychiatric: DENIES: Mood changes, Depression, Hallucinations Past Family Social History Past Medical History Diabetes mellitus Cardiovascular disease CHF Celiac SMA Gallstones Acute kidney injury High cholesterol Past Surgical History Left midfoot amputation Reported Medications Dicyclomine Eliquis Plavix Atorvastatin Coreg [place] Furosemide Protonix Allergies: Coded Allergies: aspirin (Verified Allergy, Intermediate, hives, 07/30/17) Iodinated Contrast- Oral and IV Dye (Verified Adverse Reaction, Severe, kidney failure, 07/30/17) Active Ordered Medications Current Medications Medications (Trade) Dose Ordered Sig/Lisbet Route Start Time Stop Time Status Last Admin (Protonix Inj) 40 mg Q12H IV PUSH 07/30/17 16:00 07/31/17 04:17 (Lipitor) 10 mg HS PO 07/30/17 21:00 (Coreg) 3.125 mg BID PO 07/30/17 21:00 07/31/17 09:53 (Plavix) 75 mg DAILY PO 07/31/17 09:00 (Lasix Inj) 40 mg BID@18 IV PUSH 07/30/17 18:00 07/31/17 09:00 (Aldactone) 25 mg DAILY PO 07/30/17 17:00 07/31/17 09:53 (NovoLOG SUPPLEMENTAL SCALE) 1 ACHS SLIDING SCALE SQ 07/30/17 17:00 (D50w (Vial) Inj) 50 ml UNSCH PRN IV PUSH 07/30/17 16:45 (Glucagon Inj) 1 mg UNSCH PRN OTHER 07/30/17 16:45 Family History Noncontributory Social History Patient is blind; lives with family Denies tobacco use Denies EtOH use Denies illicit drug use Physical Exam Vital Signs Vital Signs Date Time Temp Pulse Resp B/P (MAP) Pulse Ox O2 Delivery O2 Flow Rate FiO2 07/31/17 11:12 97.5 73 20 135/88 (104) 97 07/31/17 07:48 98.0 75 20 136/76 (96) 98 07/31/17 07:18 98 Nasal Cannula 07/31/17 06:00 71 07/31/17 05:50 98.0 74 16 155/90 (111) 98 07/31/17 00:25 74 07/30/17 20:00 97.6 72 16 140/81 (100) 100 07/30/17 20:00 99 Nasal Cannula 2.00 07/30/17 18:10 98.0 72 20 142/75 (97) 100 07/30/17 16:55 07/30/17 15:16 70 15 164/84 (110) 100 Room Air Physical Exam GENERAL: Resting in bed in no acute distress. SKIN: Warm and dry. HEAD: Atraumatic. Normocephalic. EYES: Pupils equal and round. No scleral icterus. No injection or drainage. ENT: No nasal bleeding or discharge. Mucous membranes pink and moist. NECK: Trachea midline. CARDIOVASCULAR: Regular rate and rhythm. RESPIRATORY: No accessory muscle use. Clear to auscultation. Breath sounds equal bilaterally. GASTROINTESTINAL: Abdomen soft, non-tender, nondistended. No visible scars or hernias. MUSCULOSKELETAL: Extremities without clubbing, cyanosis, or edema. S/p LEFT midfoot amputation. NEUROLOGICAL: Awake and alert. No obvious cranial nerve deficits. Motor grossly within normal limits. Five out of 5 muscle strength in the arms and legs. Normal speech. PSYCHIATRIC: Appropriate mood and affect; insight and judgment normal. Laboratory Laboratory Tests Test 07/31/17 05:06 07/31/17 10:35 Blood Urea Nitrogen 23 Creatinine 1.27 Random Glucose 94 Total Protein 6.5 Albumin 3.4 Calcium Level 8.9 Alkaline Phosphatase 279 Aspartate Amino Transf (AST/SGOT) 53 Alanine Aminotransferase (ALT/SGPT) 66 Total Bilirubin 1.8 Sodium Level 141 Potassium Level 3.6 Chloride Level 103 Carbon Dioxide Level 26.8 Anion Gap 11 Estimat Glomerular Filtration Rate 41 B-Type Natriuretic Peptide 4678 Prothrombin Time 20.2 Prothromb Time International Ratio 2.0 Activated Partial Thromboplast Time 38.3 Date/Time Source Procedure Growth Status 07/30/17 09:45 Urine Catheterized Urine Urine Culture - Preliminary Yeast-Id To Follow Resulted Result Diagram: 07/30/17 0935 07/31/17 0506 Imaging Last 48 hours Impressions Abdomen/Pelvis CT 07/30/17 0928 Signed Impressions: Service Date/Time: Sunday, July 30, 2017 10:02 - CONCLUSION: 1. Cholelithiasis. 2. Small bilateral pleural effusions and slight anasarca. 3. Uterine fibroids. 4. Chronic episodic changes of multiple visceral arteries and not changed K. Taj Fang MD Hepatobiliary Scan Nuclear Medicine 07/30/17 0000 Signed Impressions: Service Date/Time: Sunday, July 30, 2017 21:57 - CONCLUSION: 1. Lack of visualization of the bowel concerning for common bile duct obstruction. Silvestre Gallego Jr., MD Cholangiopancreatography MRI 07/30/17 0000 Signed Impressions: Service Date/Time: Sunday, July 30, 2017 16:41 - CONCLUSION: 1. Cholelithiasis 2. No evidence of common duct stone Herman Rodríguez MD Assessment and Plan Assessment and Plan 71 year old female with multiple medical problems; abdominal pain; gallstones; stenosis of the celiac SMA -IR consulted as well for possible stenting of celiac -Will need Cardiology clearance prior to any procedure -Symptoms more consistent with SMA rather than gallbladder in nature -Diet as tolerated -We will continue to follow if abdominal continues after stenting -Thank you for this consult Discussed Condition With Dr. Leon Ms. Melton + daughter Attending Statement The exam, history, and the medical decision-making described in the above note were completed with the assistance of the mid-level provider. I reviewed and agree with the findings presented. I attest that I had a [id number] encounter with the patient on the same day, and personally performed and documented my assessment and findings in the medical record. d/w patient and daughter at bedside Abdominal Exam: soft, non-distended, no rebound tenderness or peritonitis, some periumbilical tenderness doubt gallbladder is the cause, very likely chronic worsening mesenteric ischemia will follow Alona Heard Jul 31, 2017 14:54 Que Leon MD Aug 09, 2017 00:04
--- NOTE | 2017-07-31 14:56 | PD.CONS ---
HPI Consult Requested By Primary Care Physician Lorenzo Oviedo MD History of Present Illness 71 year old morbid obese female admitted for uncontrolled abdominal pain predominantly in the epigastric and gastric region cardiology consulted for pre- operative clearance. 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 PMHx significant for LV systolic dysfunction with 35% EF, diabetes mellitus, CKD, chronic elevated troponin, morbid obesity, DVT, toe amputation. She denies CV complaints. BNP elevated. Review of Systems Consitutional: DENIES: Fatigue, Fever, Chills, Weight gain, Weight loss Eyes: DENIES: Amaurosis Fugax, Change in vision HEENT: DENIES: Lightheadedness, Change in hearing Respiratory: DENIES: See HPI, Cough, Snoring, Shortness of breath, Wheezing, Sputum production Cardiovascular: DENIES: See HPI, Chest pain, Palpitations, Syncope, Tachycardia Gastrointestinal: DENIES: Nausea, Vomiting, Change in bowel habits, Reflux, Bloody stools, Melena Genitourinary: DENIES: Urinary incontinence, Difficulty voiding Integumentary: DENIES: Rash Neurologic: DENIES: Tingling or numbness, Memory problems, Poor Balance, Stroke symptoms Musculoskeletal: DENIES: Joint pain, Muscle pain, Limited range of motion, Back pain Psychiatric: DENIES: Anxiety, Depression, Sleep disturbances Hematologic: DENIES: Bruising tendencies, Bleeding tendencies Endocrine: DENIES: Weight gain, Weight loss, Thyroid disease Past Family Social History Allergies: Coded Allergies: aspirin (Verified Allergy, Intermediate, hives, 07/30/17) Iodinated Contrast- Oral and IV Dye (Verified Adverse Reaction, Severe, kidney failure, 07/30/17) Past Medical History Diabetes mellitus Cardiovascular disease Congestive heart failure 2011, Vascular disease with high-grade stenosis celiac SMA Left extremity DVT Gallstones Anticoagulant therapy Chest pain Acute kidney failure Hyperlipidemia Reported Medications Reported Meds & Active Scripts Active Hydrocodone-Acetamin 5-325 mg (Hydrocodone/Acetaminophen) 5 Mg-325 Mg Tablet 1 Tab PO Q4H PRN Reported Plavix (Clopidogrel Bisulfate) 75 Mg Tab 75 Mg PO DAILY Protonix (Pantoprazole Sodium) 40 Mg Tab 40 Mg PO DAILY Furosemide 40 Mg Tab 40 Mg PO DAILY Dicyclomine (Dicyclomine HCl) 10 Mg Cap 10 Mg PO TID PRN Coreg (Carvedilol) 3.125 Mg Tab 3.125 Mg PO BID Atorvastatin (Atorvastatin Calcium) 10 Mg Tab 10 Mg PO HS Eliquis (Apixaban) 2.5 Mg Tab 2.5 Mg PO BID Active Ordered Medications Current Medications Medications (Trade) Dose Ordered Sig/Lisbet Route Start Time Stop Time Status Last Admin (Protonix Inj) 40 mg Q12H IV PUSH 07/30/17 16:00 07/31/17 04:17 (Lipitor) 10 mg HS PO 07/30/17 21:00 (Coreg) 3.125 mg BID PO 07/30/17 21:00 07/31/17 09:53 (Plavix) 75 mg DAILY PO 07/31/17 09:00 (Lasix Inj) 40 mg BID@18 IV PUSH 07/30/17 18:00 07/31/17 09:00 (Aldactone) 25 mg DAILY PO 07/30/17 17:00 07/31/17 09:53 (NovoLOG SUPPLEMENTAL SCALE) 1 ACHS SLIDING SCALE SQ 07/30/17 17:00 (D50w (Vial) Inj) 50 ml UNSCH PRN IV PUSH 07/30/17 16:45 (Glucagon Inj) 1 mg UNSCH PRN OTHER 07/30/17 16:45 Social History No known tobacco or alcohol or illicit drugs according to the record Physical Exam Vital Signs Vital Signs Date Time Temp Pulse Resp B/P (MAP) Pulse Ox O2 Delivery O2 Flow Rate FiO2 07/31/17 11:12 97.5 73 20 135/88 (104) 97 07/31/17 07:48 98.0 75 20 136/76 (96) 98 07/31/17 07:18 98 Nasal Cannula 07/31/17 06:00 71 07/31/17 05:50 98.0 74 16 155/90 (111) 98 07/31/17 00:25 74 07/30/17 20:00 97.6 72 16 140/81 (100) 100 07/30/17 20:00 99 Nasal Cannula 2.00 07/30/17 18:10 98.0 72 20 142/75 (97) 100 07/30/17 16:55 07/30/17 15:16 70 15 164/84 (110) 100 Room Air Physical Exam GENERAL: Well-nourished, well-developed patient. SKIN: Warm and dry. HEAD: Normocephalic. EYES: No scleral icterus. No injection or drainage. NECK: Supple, trachea midline. No JVD or lymphadenopathy. CARDIOVASCULAR: Regular rate and rhythm without murmurs, gallops, or rubs. RESPIRATORY: Breath sounds equal bilaterally. No accessory muscle use. GASTROINTESTINAL: Abdomen soft, non-tender, nondistended. EXTREMITIES: No cyanosis, or ++edema. Laboratory Laboratory Tests Test 07/31/17 05:06 07/31/17 10:35 Blood Urea Nitrogen 23 Creatinine 1.27 Random Glucose 94 Total Protein 6.5 Albumin 3.4 Calcium Level 8.9 Alkaline Phosphatase 279 Aspartate Amino Transf (AST/SGOT) 53 Alanine Aminotransferase (ALT/SGPT) 66 Total Bilirubin 1.8 Sodium Level 141 Potassium Level 3.6 Chloride Level 103 Carbon Dioxide Level 26.8 Anion Gap 11 Estimat Glomerular Filtration Rate 41 B-Type Natriuretic Peptide 4678 Prothrombin Time 20.2 Prothromb Time International Ratio 2.0 Activated Partial Thromboplast Time 38.3 Date/Time Source Procedure Growth Status 07/30/17 09:45 Urine Catheterized Urine Urine Culture - Preliminary Yeast-Id To Follow Resulted Result Diagram: 07/30/17 0935 07/31/17 0506 Imaging Last Impressions Abdomen/Pelvis CT 07/30/17 0928 Signed Impressions: Service Date/Time: Sunday, July 30, 2017 10:02 - CONCLUSION: 1. Cholelithiasis. 2. Small bilateral pleural effusions and slight anasarca. 3. Uterine fibroids. 4. Chronic episodic changes of multiple visceral arteries and not changed K. Taj Fang MD Hepatobiliary Scan Nuclear Medicine 07/30/17 0000 Signed Impressions: Service Date/Time: Sunday, July 30, 2017 21:57 - CONCLUSION: 1. Lack of visualization of the bowel concerning for common bile duct obstruction. Silvestre Gallego Jr., MD Cholangiopancreatography MRI 07/30/17 0000 Signed Impressions: Service Date/Time: Sunday, July 30, 2017 16:41 - CONCLUSION: 1. Cholelithiasis 2. No evidence of common duct stone Herman Rodríguez MD ECHO: Normal left ventricular size. Wall thickness is normal. The left ventricular systolic function is severely reduced with an estimated ejection fraction in the range of 25-30%. There is diffuse global hypokinesis. Mitral annular calcification is present. Njsribql-ee-hqekfu mitral valve regurgitation. There is moderate tricuspid valve regurgitation. There is estimated xabkimco-jf-xpymfa pulmonary hypertension present (66 mmHg). Assessment and Plan Problem List: (1) Intractable abdominal pain ICD Codes: R10.9 - Unspecified abdominal pain Status: Acute Plan: 71 y/o F admitted with intractable abdominal pain specially after eating known to have severe stenosis of Celiac Artery with patent TAO and SMA being consider for Celiac Artery Stent by IR. She does have a cardiac hx although unclear. Last echo shows severe LV systolic dysfunction. No hx of CT surgeries or PCI. BNP elevated. She has been responding to IV Lasix. In regards to the IR procedure; this is an intermediate risk procedure, she has no active cardiac complaints although functional capacity at baseline is limited. Thus at this point I do not recommend any invasive cardiac work prior to IR procedure, rather optimization of medical management for CHF as well as aggressive medical management for CAD. She should follow up with Cardiology upon discharge. Recommendations: Cont Coreg, Lasix, Plavix Start ASA 81mg PO daily Telemetry monitoring (2) DVT (deep venous thrombosis) ICD Codes: I82.409 - Acute embolism and thrombosis of unspecified deep veins of unspecified lower extremity (3) Cholelithiasis ICD Codes: K80.20 - Calculus of gallbladder without cholecystitis without obstruction (4) Bloating ICD Codes: R14.0 - Abdominal distension (gaseous) Andriy Quinonez MD Jul 31, 2017 14:56
[2017-07-31] MEDS: ATORVASTATIN 10 MG TAB PO SCH (21:45)
[2017-08-01] VITALS (14 sets, daily range): BP systolic 120–165; BP diastolic 59–94; PULSE 68–79; RESP 12–20; TEMP 96–97.8; O2SAT 88–98
[2017-08-01] MEDS: PANTOPRAZOLE SODIUM 40 MG VIAL IV PUSH SCH ×2 (04:59→17:09)
[2017-08-01] MEDS: INSULIN ASPART SUPPLEMENTAL SCALE SQ SCH ×4 (08:00→21:00)
--- NOTE | 2017-08-01 08:56 | HHI.PR ---
Subjective Remarks in no acute distress. still with some abdominal tenderness. at the bedside. Objective Vitals Vital Signs Date Time Temp Pulse Resp B/P (MAP) Pulse Ox O2 Delivery O2 Flow Rate FiO2 08/01/17 07:36 88 21 08/01/17 04:11 96.3 74 20 138/68 (91) 94 08/01/17 04:00 73 08/01/17 00:22 96.4 70 20 120/59 (79) 95 07/31/17 21:18 97.4 78 20 141/79 (99) 94 07/31/17 20:00 74 07/31/17 16:51 98.0 75 21 142/74 (96) 98 07/31/17 15:30 68 07/31/17 11:12 97.5 73 20 135/88 (104) 97 I/O 07/31/17 07/31/17 07/31/17 08/01/17 08/01/17 08/01/17 07:00 15:00 23:00 07:00 15:00 23:00 # Voids 1 3 1 Result Diagram: 07/30/17 0935 07/31/17 0506 Imaging Last Impressions Abdomen/Pelvis CT 07/30/17 0928 Signed Impressions: Service Date/Time: Sunday, July 30, 2017 10:02 - CONCLUSION: 1. Cholelithiasis. 2. Small bilateral pleural effusions and slight anasarca. 3. Uterine fibroids. 4. Chronic episodic changes of multiple visceral arteries and not changed K. Taj Fang MD Hepatobiliary Scan Nuclear Medicine 07/30/17 0000 Signed Impressions: Service Date/Time: Sunday, July 30, 2017 21:57 - CONCLUSION: 1. Lack of visualization of the bowel concerning for common bile duct obstruction. Silvestre Gallego Jr., MD Cholangiopancreatography MRI 07/30/17 0000 Signed Impressions: Service Date/Time: Sunday, July 30, 2017 16:41 - CONCLUSION: 1. Cholelithiasis 2. No evidence of common duct stone Herman Rodríguez MD Objective Remarks GENERAL: This is a well-nourished, well-developed patient, in no apparent distress. CARDIOVASCULAR: Regular rate and regular rhythm without murmurs, gallops, or rubs. RESPIRATORY: Clear to auscultation. Breath sounds equal bilaterally. No wheezes , rales, or rhonchi. GASTROINTESTINAL: Abdomen soft, non-tender, nondistended. Normal, active bowel sounds MUSCULOSKELETAL: Extremities without clubbing, cyanosis, or edema. NEURO: Alert & Oriented x4 to person, place, time, situation. Moves all ext x4 Medications and IVs Inpatient Medications Atorvastatin Calcium (Lipitor) 10 mg HS PO Last administered on 07/31/17at 21:45 ; Start 07/30/17 at 21:00 Carvedilol (Coreg) 3.125 mg BID PO Last administered on 07/31/17at 21:45; Start 07/30/17 at 21:00 Ceftriaxone Sodium 1000 mg/ Sodium Chloride 100 ml @ 200 mls/hr ONCE ONCE IV Last administered on 07/30/17at 13:45; Start 07/30/17 at 13:15; Stop 07/30/17 at 13: 44; Status DC Clopidogrel Bisulfate (Plavix) 75 mg DAILY PO ; Start 07/31/17 at 09:00 Dextrose (D50w (Vial) Inj) 50 ml UNSCH PRN IV PUSH HYPOGLYCEMIA-SEE COMMENTS; Start 07/30/17 at 16:45 Furosemide (Lasix Inj) 40 mg BID@09,18 IV PUSH Last administered on 07/31/17at 19 :13; Start 07/30/17 at 18:00 Glucagon (Glucagon Inj) 1 mg UNSCH PRN OTHER HYPOGLYCEMIA-SEE COMMENTS; Start 07/30/17 at 16:45 Insulin Aspart (NovoLOG SUPPLEMENTAL SCALE) 1 ACHS SLIDING SCALE SQ ; Start 07/30/17 at 17:00 Morphine Sulfate (Morphine Inj) 4 mg ONCE ONCE IV PUSH Last administered on 07/30/17at 13:45; Start 07/30/17 at 13:45; Stop 07/30/17 at 13:46; Status DC Pantoprazole Sodium (Protonix Inj) 40 mg Q12H IV PUSH Last administered on at 04:59; Start 07/30/17 at 16:00 Spironolactone (Aldactone) 25 mg DAILY PO Last administered on 07/31/17at 09:53; Start 07/30/17 at 17:00 A/P Assessment and Plan A/P abdominal pain with elevated LFT's HIDA with possible common duct obstruction GI consult appreciated; possible ERCP. surgery following. 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 IR considering stent placement. cardiology consulted for clearance; intermediate risk for the procedure- no further invasive cardiac work-up at this time. History of PE and DVT; eliquis on hold for possible procedure; will resume when ok with GI/IR. CHF seems to be in decompensation with +2 edema in the lower extremity and BNP 4678; acute on chronic systolic. continue Lasix- continue to monitor clinically. DVT prophylaxis; will resume Eliquis when ok with GI and IR. Denise Chester MD Aug 01, 2017 08:56
[2017-08-01] MEDS: CLOPIDOGREL 75 MG TAB PO SCH (09:00)
[2017-08-01 09:02] LABS: ALBUMIN 3.2 GM/DL (3.4-5.0); AST (GOT) 37 U/L (15-37); BICARBONATE 25.9 MEQ/L (21.0-32.0); BLOOD UREA NITROGEN 22 MG/DL (7-18); CALCIUM 8.7 MG/DL (8.5-10.1); CHLORIDE 101 MEQ/L (98-107); CREATININE 1.17 MG/DL (0.50-1.00); GLOMERULAR FILTRATION RATE 46 ML/MIN (>89); GLUCOSE,RANDOM 97 MG/DL (74-106); SODIUM (NA) 140 MEQ/L (136-145)
[2017-08-01 09:03] LABS: ALT (GPT) 55 U/L (10-53)
[2017-08-01 09:06] LABS: ALKALINE PHOSPHATASE 239 U/L (45-117); TOTAL BILIRUBIN ADULT 1.7 MG/DL (0.2-1.0); TOTAL PROTEIN 6.1 GM/DL (6.4-8.2)
[2017-08-01] MEDS: CARVEDILOL 3.125 MG TAB PO SCH ×2 (10:05→21:22)
[2017-08-01] MEDS: SPIRONOLACTONE 25 MG TAB PO SCH (10:05)
[2017-08-01] MEDS: FUROSEMIDE 40 MG/4 ML VIAL IV PUSH SCH ×2 (10:05→17:09)
--- NOTE | 2017-08-01 12:32 | HHI.GIFU ---
Subjective Remarks Pt resting in bed in NAD. Going for IR procedure. Says her pain is improved. Objective Vitals I&O Vital Signs Date Time Temp Pulse Resp B/P (MAP) Pulse Ox O2 Delivery O2 Flow Rate FiO2 08/01/17 09:46 96.0 76 12 139/81 (100) 92 08/01/17 07:36 88 21 08/01/17 04:11 96.3 74 20 138/68 (91) 94 08/01/17 04:00 73 08/01/17 00:22 96.4 70 20 120/59 (79) 95 07/31/17 21:18 97.4 78 20 141/79 (99) 94 07/31/17 20:00 74 07/31/17 16:51 98.0 75 21 142/74 (96) 98 07/31/17 15:30 68 I/O 07/31/17 07/31/17 07/31/17 08/01/17 08/01/17 08/01/17 07:00 15:00 23:00 07:00 15:00 23:00 # Voids 1 3 1 Laboratory Laboratory Tests Test 08/01/17 07:29 Blood Urea Nitrogen 22 Creatinine 1.17 Random Glucose 97 Total Protein 6.1 Albumin 3.2 Calcium Level 8.7 Alkaline Phosphatase 239 Aspartate Amino Transf (AST/SGOT) 37 Alanine Aminotransferase (ALT/SGPT) 55 Total Bilirubin 1.7 Sodium Level 140 Potassium Level 3.3 Chloride Level 101 Carbon Dioxide Level 25.9 Anion Gap 13 Estimat Glomerular Filtration Rate 46 Date/Time Source Procedure Growth Status 07/30/17 09:45 Urine Catheterized Urine Urine Culture - Preliminary Yeast-Id To Follow Resulted Imaging Last Impressions Abdomen/Pelvis CT 07/30/17 0928 Signed Impressions: Service Date/Time: Sunday, July 30, 2017 10:02 - CONCLUSION: 1. Cholelithiasis. 2. Small bilateral pleural effusions and slight anasarca. 3. Uterine fibroids. 4. Chronic episodic changes of multiple visceral arteries and not changed K. Taj Fang MD Hepatobiliary Scan Nuclear Medicine 07/30/17 0000 Signed Impressions: Service Date/Time: Sunday, July 30, 2017 21:57 - CONCLUSION: 1. Lack of visualization of the bowel concerning for common bile duct obstruction. Silvestre Gallego Jr., MD Cholangiopancreatography MRI 07/30/17 0000 Signed Impressions: Service Date/Time: Sunday, July 30, 2017 16:41 - CONCLUSION: 1. Cholelithiasis 2. No evidence of common duct stone Herman Rodríguez MD Physical Exam HEENT: normocephalic; atraumatic; no jaundice. unequal pupils CHEST: CTA CARDIAC: RRR ABDOMEN: Soft, obese, nontender; no hepatosplenomegaly; bowel sounds are present in all four quadrants. EXTREMITIES: No clubbing, cyanosis, + BLE edema. SKIN: Normal; no rash; no jaundice. SET OFF BLOCKER: lethargic Assessment and Plan Assessment: (1) Cholelithiasis ICD Codes: K80.20 - Calculus of gallbladder without cholecystitis without obstruction Plan: HIDA concerning for CBD obstruction , MRCP -ve for obstruction but does show gallstones will need ERCP with cardiac clearance. (2) Bloating ICD Codes: R14.0 - Abdominal distension (gaseous) Plan: Colonoscopy when possible (3) Elevated LFTs ICD Codes: R79.89 - Other specified abnormal findings of blood chemistry Plan: LFTs remain elevated but are trending down (4) Intractable abdominal pain ICD Codes: R10.9 - Unspecified abdominal pain Status: Acute Plan: IR to consider celiac stenting with cardiac clearance. general surgery consult is pending. Egd/colonoscopy when able. Can not do prep at this time. Plan going for IR procedure/stenting. Cardiology cleared for IR procedure, intermediate risk....ERCP? LFTs trending down, pt having less pain -await celiac stenting - ERCP if cleared by cardiology - supportive care Pt d/w Dr Barrow and this note is written on his behalf Jacinda Dunn Aug 01, 2017 12:32
[2017-08-01] MEDS ORDERED: MIDAZOLAM HCL 2 MG/2 ML VIAL ONE (13:51)
[2017-08-01] MEDS ORDERED: IODIXANOL 320 MG/ML 50 ML VIAL (for RAD SPEC) I-ARTERIAL ONE (14:14)
[2017-08-01] MEDS ORDERED: SODIUM CHLOR 0.9% 1000 ML INJ 1,000 ML IV SCH (14:15)
--- NOTE | 2017-08-01 14:17 | PD.RAD ---
Post Procedure Progress Note Pre Procedure Diagnosis: (1) Intractable abdominal pain Post Procedure Diagnosis: (1) Intractable abdominal pain Procedure Date: Aug 01, 2017 Supervising Radiologist: Herman Rodríguez Proceduralist/Assist: Josephine Torre, RT(R)(CV), Taj Egan RT(R) Anesthesia: Conscious Sedation Plan of Activity Patient to Unit: Nursing Unit Patient Condition: Fair See PACS Report for procedural detail/treatment Vascular-Arterial Procedure Procedure 1 Procedure Site: Abdominal Procedure(s): Angiogram Access Access Site(s): Right Femoral Artery Closure Site(s): Right vascular closure device Herman Rodríguez MD Aug 01, 2017 14:17
--- NOTE | 2017-08-01 14:57 | RADRPT ---
EXAM DATE/TIME: 08/01/2017 11:36 [place] COMPARISON: No previous studies available for comparison. INDICATIONS : Patient came to ED compllaining of chronically un bearable abdomin pain. MEDICAL HISTORY : 1. DM 2. CAD 3. CHF 4. PAD 5. DVT 6. Gallstones 7. chest pain 8. Acute kidney failure SURGICAL HISTORY : 1. Heart cath 2. Partial foot amputation ENCOUNTER: Initial ACUITY: 1 month PAIN SCORE: 9/10 LOCATION: abdomen FLUORO TIME: 36.6 minutes IMAGE SERIES: 8 ACCESS SITE: Right Femoral artery SEDATION TIME: 60 minutes CONTRAST: 1.) 75 cc Visipaque (iodixanol) MEDICATION(S): 1.) 0.5 mg midazolam (Versed) IV 2.) 175 mcg fentanyl (Sublimaze) IV DEVICE(S): 1.) Right common femoral artery 6 fr Angio-Seal 2.) Right common femoral artery Syvek pad PROCEDURE : 1. Ultrasound-guided puncture of the access site. 2. Angiography of the access site prior to closure device. 3. Conscious sedation with continuous EKG and Oximetry monitoring. 4. Percutaneous closure of the access site. 5. Angiography of the celiac axis 6. Angiography of the mesenteric artery The risks, benefits and alternatives to the procedure were explained and verbal and written consent w as obtained. The site was prepped in sterile fashion. Full sterile technique was used, including ca p, mask, sterile gloves and gown and a large sterile sheet. Hand hygiene and 2% chlorhexidine and/or betadine/alcohol prep was utilized per protocol for cutaneous antisepsis. Sterile gel and sterile p robe cover were utilized for ultrasound guidance. The skin and subcutaneous tissues were infiltrated with local anesthetic solution. With ultrasound and fluoroscopic guidance the selected artery was punctured and a vascular sheath was placed. Angiography of the common femoral artery was performed for evaluation prior to percutaneous closure device placement. Injection of the superior mesenteric artery demonstrates brisk collateral flow maintaining the arteri al phase filling the gastroduodenal artery in retrograde fashion as well as the splenic artery and he patic artery. The large gastroduodenal vessels suggesting long-standing chronic process. The celiac axis was also catheterized and the level of stenosis could be evaluated no stable wire pos ition could not be maintained for placement of the stents. Streaky dynamic alterations of the superio r mesenteric artery this is not the cause for the patient's symptoms. The procedure was terminated wi thout intervention. Hemostasis was obtained with the prescribed medicated closure device. Conscious sedation was perform ed with the prescribed dosages and duration as above in the presence of an independent trained radiol ogy nurse to assist in the monitoring of the patient. EKG and oximetry remained stable throughout th e procedure. CONCLUSION: 1. Widely patent patent superior mesenteric artery with large collateral formation opacifying the sit e artery distribution characteristic of long-standing chronic process. 2. Complete occlusion of the celiac axis 3. Stenting was not performed Herman Rodríguez MD on August 01, 2017 at 14:51 Board Certified Radiologist. This report was verified electronically.
[2017-08-01] MEDS: ATORVASTATIN 10 MG TAB PO SCH (21:22)
[2017-08-01] MEDS: oxyCODONE/ACETAMINOPHEN 5 MG/325 MG TAB PO PRN (23:09)
[2017-08-02] VITALS (8 sets, daily range): BP systolic 107–134; BP diastolic 56–72; PULSE 67–79; RESP 12–22; TEMP 96.4–97.6; O2SAT 95–100
[2017-08-02] MEDS: PANTOPRAZOLE SODIUM 40 MG VIAL IV PUSH SCH ×2 (05:01→17:18)
[2017-08-02] MEDS: INSULIN ASPART SUPPLEMENTAL SCALE SQ SCH ×4 (08:00→21:23)
[2017-08-02] MEDS: CLOPIDOGREL 75 MG TAB PO SCH (08:53)
[2017-08-02] MEDS: SPIRONOLACTONE 25 MG TAB PO SCH (08:54)
[2017-08-02] MEDS: CARVEDILOL 3.125 MG TAB PO SCH ×2 (08:55→21:27)
[2017-08-02] MEDS: FUROSEMIDE 40 MG/4 ML VIAL IV PUSH SCH ×2 (08:55→17:20)
--- NOTE | 2017-08-02 09:18 | HHI.GIFU ---
Subjective Remarks Awake, but very weak Daughter in room No acute abdominal pain Afebrile Objective Vitals I&O Vital Signs Date Time Temp Pulse Resp B/P (MAP) Pulse Ox O2 Delivery O2 Flow Rate FiO2 08/02/17 08:02 96.4 70 12 123/67 (85) 95 08/02/17 04:30 67 08/02/17 04:04 96.5 79 18 134/72 (92) 98 08/02/17 01:42 97.0 70 22 129/61 (83) 96 08/01/17 22:45 96.7 70 20 141/94 (110) 98 08/01/17 19:36 77 08/01/17 17:19 97.8 79 18 131/79 (96) 98 08/01/17 16:25 75 18 146/91 (109) 96 08/01/17 15:25 76 18 151/91 (111) 93 08/01/17 15:25 75 18 165/63 (97) 95 08/01/17 14:55 74 20 142/87 (105) 96 08/01/17 14:40 73 20 142/63 (89) 97 08/01/17 14:25 72 20 146/83 (104) 97 08/01/17 14:10 97.7 68 20 138/84 (102) 97 08/01/17 09:46 96.0 76 12 139/81 (100) 92 I/O 08/01/17 08/01/17 08/01/17 08/02/17 08/02/17 08/02/17 07:00 15:00 23:00 07:00 15:00 23:00 Output Total 1500 ml Balance -1500 ml Output Urine Total 1500 ml # Voids 1 4 # Bowel Movements 2 Laboratory Date/Time Source Procedure Growth Status 07/30/17 09:45 Urine Catheterized Urine Urine Culture - Final Misty Glabrata Complete Imaging Last Impressions Celiac/Hepatic Arteriogram 08/01/17 1413 Signed Impressions: Service Date/Time: July 11:36 - CONCLUSION: 1. Widely patent patent superior mesenteric artery with large collateral formation opacifying the site artery distribution characteristic of long-standing chronic process. 2. Complete occlusion of the celiac axis 3. Stenting was not performed Herman Rodríguez MD Abdomen/Pelvis CT 07/30/17 0944 Signed Impressions: Service Date/Time: Sunday, July 30, 2017 10:02 - CONCLUSION: 1. Cholelithiasis. 2. Small bilateral pleural effusions and slight anasarca. 3. Uterine fibroids. 4. 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 Lack of visualization of the bowel concerning for common bile duct obstruction. Silvestre Gallego Jr., MD Cholangiopancreatography MRI 07/30/17 0000 Signed Impressions: Service Date/Time: Sunday, July 30, 2017 16:41 - CONCLUSION: 1. Cholelithiasis 2. No evidence of common duct stone Herman Rodríguez MD Physical Exam HEENT: normocephalic; atraumatic; no jaundice. Pale skin, obese CHEST: CTA CARDIAC: RRR ABDOMEN: Soft, obese, nontender; no hepatosplenomegaly; bowel sounds are present in all four quadrants. EXTREMITIES: No clubbing, cyanosis, + BLE edema. SKIN: Normal; no rash; no jaundice. 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 (2) Bloating ICD Codes: R14.0 - Abdominal distension (gaseous) Plan: Colonoscopy when possible, possible Saturday (3) Elevated LFTs ICD Codes: R79.89 - Other specified abnormal findings of blood chemistry Status: Chronic Plan: LFTs remain elevated but are trending down, recheck in the morning. (4) Intractable abdominal pain ICD Codes: R10.9 - Unspecified abdominal pain Status: Acute Plan: . Egd/colonoscopy when able. Plan IR procedure/for possible stenting on 08/01, good collateral circulation no stent placed. Cardiology cleared for procedures needed to be done LFTs trending down, pt having less pain, but still very weak and Continue IV PPI for now, consider changing to by mouth tomorrow -LFTs decreasing, ordered rechecks for tomorrow - Spoke with Dr. Barrow on further testing today, hold on ERCP until possibly Saturday, if needed at all - supportive care - Call for any acute hemorrhage or bleed or acute abdominal pain Spoke with Dr Barrow and this note is written on his behalf Carrie Hall Aug 02, 2017 09:18
[2017-08-02] MEDS ORDERED: DOCUSATE SODIUM 50 MG/SENNA 8.6 MG TAB PO ONE (10:00)
[2017-08-02] MEDS ORDERED: POLYETHYLENE GLYCOL 17 GM PKG PO ONE (10:00)
--- NOTE | 2017-08-02 11:19 | HHI.PR ---
Subjective Remarks in no acute distress. denies abdominal pain, nausea or vomiting. tolerating the liquid diet. no new complaints. family at the bedside. Objective Vitals Vital Signs Date Time Temp Pulse Resp B/P (MAP) Pulse Ox O2 Delivery O2 Flow Rate FiO2 08/02/17 08:02 96.4 70 12 123/67 (85) 95 08/02/17 04:30 67 08/02/17 04:04 96.5 79 18 134/72 (92) 98 08/02/17 01:42 97.0 70 22 129/61 (83) 96 08/01/17 22:45 96.7 70 20 141/94 (110) 98 08/01/17 19:36 77 08/01/17 17:19 97.8 79 18 131/79 (96) 98 08/01/17 16:25 75 18 146/91 (109) 96 08/01/17 15:25 76 18 151/91 (111) 93 08/01/17 15:25 75 18 165/63 (97) 95 08/01/17 14:55 74 20 142/87 (105) 96 08/01/17 14:40 73 20 142/63 (89) 97 08/01/17 14:25 72 20 146/83 (104) 97 08/01/17 14:10 97.7 68 20 138/84 (102) 97 I/O 08/01/17 08/01/17 08/01/17 08/02/17 08/02/17 08/02/17 07:00 15:00 23:00 07:00 15:00 23:00 Output Total 1500 ml Balance -1500 ml Output Urine Total 1500 ml # Voids 1 4 # Bowel Movements 2 Result Diagram: 07/30/17 0935 08/01/17 0729 Imaging Last Impressions Celiac/Hepatic Arteriogram 08/01/17 1413 Signed Impressions: Service Date/Time: July 11:36 - CONCLUSION: 1. Widely patent patent superior mesenteric artery with large collateral formation opacifying the site artery distribution characteristic of long-standing chronic process. 2. Complete occlusion of the celiac axis 3. Stenting was not performed Herman Rodríguez MD Abdomen/Pelvis CT 07/30/17 0928 Signed Impressions: Service Date/Time: Sunday, July 30, 2017 10:02 - CONCLUSION: 1. Cholelithiasis. 2. Small bilateral pleural effusions and slight anasarca. 3. Uterine fibroids. 4. Chronic episodic changes of multiple visceral arteries and not changed K. Taj Fang MD Hepatobiliary Scan Nuclear Medicine 07/30/17 0000 Signed Impressions: Service Date/Time: Sunday, July 30, 2017 21:57 - CONCLUSION: 1. Lack of visualization of the bowel concerning for common bile duct obstruction. Silvestre Gallego Jr., MD Cholangiopancreatography MRI 07/30/17 0000 Signed Impressions: Service Date/Time: Sunday, July 30, 2017 16:41 - CONCLUSION: 1. Cholelithiasis 2. No evidence of common duct stone Herman Rodríguez MD Objective Remarks GENERAL: This is a well-nourished, well-developed patient, in no apparent distress. CARDIOVASCULAR: Regular rate and regular rhythm without murmurs, gallops, or rubs. RESPIRATORY: Clear to auscultation. Breath sounds equal bilaterally. No wheezes , rales, or rhonchi. GASTROINTESTINAL: Abdomen soft, non-tender, nondistended. Normal, active bowel sounds MUSCULOSKELETAL: Extremities without clubbing, cyanosis, or edema. NEURO: Alert & Oriented x4 to person, place, time, situation. Moves all ext x4 Procedures abdominal angiogram. Medications and IVs Inpatient Medications Acetaminophen (Tylenol) 650 mg Q4H PRN PO PAIN SCALE 1 TO 10; Start 08/01/17 at 14:15 Atorvastatin Calcium (Lipitor) 10 mg HS PO Last administered on 08/01/17at 21:22 ; Start 07/30/17 at 21:00 Carvedilol (Coreg) 3.125 mg BID PO Last administered on 08/02/17 08:55; Start 07/30/17 at 21:00 Ceftriaxone Sodium 1000 mg/ Sodium Chloride 100 ml @ 200 mls/hr ONCE ONCE IV Last administered on 07/30/17at 13:45; Start 07/30/17 at 13:15; Stop 07/30/17 at 13: 44; Status DC Clopidogrel Bisulfate (Plavix) 75 mg DAILY PO Last administered on 08/02/17 08: 53; Start 07/31/17 at 09:00 Dextrose (D50w (Vial) Inj) 50 ml UNSCH PRN IV PUSH HYPOGLYCEMIA-SEE COMMENTS; Start 07/30/17 at 16:45 Furosemide (Lasix Inj) 40 mg BID@09,18 IV PUSH Last administered on 08/02/17at 08 :55; Start 07/30/17 at 18:00 Glucagon (Glucagon Inj) 1 mg UNSCH PRN OTHER HYPOGLYCEMIA-SEE COMMENTS; Start 07/30/17 at 16:45 Insulin Aspart (NovoLOG SUPPLEMENTAL SCALE) 1 ACHS SLIDING SCALE SQ ; Start 07/30/17 at 17:00 Morphine Sulfate (Morphine Inj) 4 mg ONCE ONCE IV PUSH Last administered on 07/30/17at 13:45; Start 07/30/17 at 13:45; Stop 07/30/17 at 13:46; Status DC Oxycodone/ Acetaminophen (Percocet 5-325 Mg) 1 tab Q4H PRN PO Pain not relieved by Tylenol Last administered on 08/01/17at 23:09; Start 08/01/17 at 14:15 Pantoprazole Sodium (Protonix Inj) 40 mg Q12H IV PUSH Last administered on at 05:01; Start 07/30/17 at 16:00 Polyethylene Glycol (Miralax) 17 gm ONCE ONCE PO Last administered on at 10:00; Start 08/02/17 at 10:00; Stop 08/02/17 at 10:02; Status DC Senna/Docusate Sodium (Marj-Colace) 1 tab BID PO ; Start 08/02/17 at 21:00 Sodium Chloride 1,000 ml @ 100 mls/hr Q10H IV ; Start 08/01/17 at 14:15; Stop at 00:14; Status DC Spironolactone (Aldactone) 25 mg DAILY PO Last administered on 08/02/17at 08:54; Start 07/30/17 at 17:00 A/P Assessment and Plan A/P abdominal pain with elevated LFT's HIDA with possible common duct obstruction GI consult appreciated; possible ERCP on Saturday. GI and surgery following. will advance the diet slowly when ok with GI. 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 s/p abdominal angiogram; good collateral circulation- no stent placed. History of PE and DVT; eliquis was on hold for planned procedure; will resume when ok with GI and if no further procedures planned. CHF seems to be in decompensation with +2 edema in the lower extremity and BNP 4678; acute on chronic systolic. continue Lasix- continue to monitor clinically. DVT prophylaxis; will resume Eliquis soon- when ok with GI. Denise Chester MD Aug 02, 2017 11:19
--- NOTE | 2017-08-02 17:22 | HHI.PR ---
cc: Que Leon MD Subjective Subjective Notes Resting in bed Daughter at bedside Objective Vitals/I&O Vital Signs Date Time Temp Pulse Resp B/P (MAP) Pulse Ox O2 Delivery O2 Flow Rate FiO2 08/02/17 12:38 97.6 67 12 107/59 (75) 100 08/01/17 07:36 21 07/31/17 07:18 Nasal Cannula 07/30/17 20:00 2.00 Labs Date/Time Source Procedure Growth Status 07/30/17 09:45 Urine Catheterized Urine Urine Culture - Final Misty Glabrata Complete Radiology Last 48 hours Impressions Abdomen/Pelvis CT 07/30/17 0928 Signed Impressions: Service Date/Time: Sunday, July 30, 2017 10:02 - CONCLUSION: 1. Cholelithiasis. 2. Small bilateral pleural effusions and slight anasarca. 3. Uterine fibroids. 4. Chronic episodic changes of multiple visceral arteries and not changed K. Taj Fang MD Hepatobiliary Scan Nuclear Medicine 07/30/17 0000 Signed Impressions: Service Date/Time: Sunday, July 30, 2017 21:57 - CONCLUSION: 1. Lack of visualization of the bowel concerning for common bile duct obstruction. Silvestre Gallego Jr., MD Cholangiopancreatography MRI 07/30/17 0000 Signed Impressions: Service Date/Time: Sunday, July 30, 2017 16:41 - CONCLUSION: 1. Cholelithiasis 2. No evidence of common duct stone Herman Rodríguez MD Cardiovascular: Regular Lungs: Clear Abdomen: Non-distended, Non-tender Extremities: No edema A/P Assessment and Plan 71 year old female with abdominal pain; celiac SMA; gallstones -Unable to place stent yesterday -Tolerating clear liquids; advanced to fulls -GI tentatively ERCP on Saturday -GS will follow peripherally over the weekend Alona Heard Aug 02, 2017 17:22
[2017-08-02] MEDS: DOCUSATE SODIUM 50 MG/SENNA 8.6 MG TAB PO SCH (21:00)
[2017-08-02] MEDS: oxyCODONE/ACETAMINOPHEN 5 MG/325 MG TAB PO PRN (21:22)
[2017-08-02] MEDS: ATORVASTATIN 10 MG TAB PO SCH (21:25)
[2017-08-03] VITALS (10 sets, daily range): BP systolic 113–151; BP diastolic 66–85; PULSE 72–79; RESP 16–20; TEMP 96.6–97.6; O2SAT 93–98
[2017-08-03] MEDS: PANTOPRAZOLE SODIUM 40 MG VIAL IV PUSH SCH ×2 (04:12→16:07)
[2017-08-03] MEDS: INSULIN ASPART SUPPLEMENTAL SCALE SQ SCH ×4 (08:00→21:00)
[2017-08-03] MEDS: SPIRONOLACTONE 25 MG TAB PO SCH (08:47)
[2017-08-03] MEDS: CARVEDILOL 3.125 MG TAB PO SCH ×2 (08:47→21:09)
[2017-08-03] MEDS: ENOXAPARIN SODIUM 40 MG/0.4 ML SYRINGE SQ SCH (08:47)
[2017-08-03] MEDS: FUROSEMIDE 40 MG/4 ML VIAL IV PUSH SCH ×2 (08:48→17:46)
[2017-08-03] MEDS: DOCUSATE SODIUM 50 MG/SENNA 8.6 MG TAB PO SCH ×2 (08:48→21:08)
[2017-08-03] MEDS: CLOPIDOGREL 75 MG TAB PO SCH (08:48)
[2017-08-03] MEDS: oxyCODONE/ACETAMINOPHEN 5 MG/325 MG TAB PO PRN (08:58)
[2017-08-03 11:18] LABS: ALBUMIN 3.2 GM/DL (3.4-5.0); AST (GOT) 34 U/L (15-37); BICARBONATE 32.7 MEQ/L (21.0-32.0); BLOOD UREA NITROGEN 19 MG/DL (7-18); CALCIUM 8.5 MG/DL (8.5-10.1); CHLORIDE 101 MEQ/L (98-107); CREATININE 1.19 MG/DL (0.50-1.00); GLOMERULAR FILTRATION RATE 45 ML/MIN (>89); GLUCOSE,RANDOM 99 MG/DL (74-106); SODIUM (NA) 141 MEQ/L (136-145)
[2017-08-03 11:21] LABS: ALKALINE PHOSPHATASE 212 U/L (45-117); ALT (GPT) 44 U/L (10-53); TOTAL BILIRUBIN ADULT 1.6 MG/DL (0.2-1.0); TOTAL PROTEIN 6.2 GM/DL (6.4-8.2)
--- NOTE | 2017-08-03 16:30 | HHI.PR ---
Subjective Remarks Patient reports she is feeling okay. Denies any pain currently. Tolerating a full liquid diet. Discussed with at bedside. He believes Percocet is too strong. Objective Vitals Vital Signs Date Time Temp Pulse Resp B/P (MAP) Pulse Ox O2 Delivery O2 Flow Rate FiO2 08/03/17 15:01 76 08/03/17 12:00 97.4 76 20 140/73 (95) 96 08/03/17 08:00 97.5 78 18 151/85 (107) 96 08/03/17 07:01 79 08/03/17 04:00 72 08/03/17 04:00 96.6 75 18 127/69 (88) 93 08/03/17 01:13 96 08/03/17 00:00 72 08/02/17 23:57 97.0 78 18 108/56 (73) 97 08/02/17 20:00 97.1 69 20 121/60 (80) 95 08/02/17 19:42 68 I/O 08/02/17 08/02/17 08/02/17 08/03/17 08/03/17 08/03/17 07:00 15:00 23:00 07:00 15:00 23:00 # Voids 3 # Bowel Movements 2 1 Result Diagram: 07/30/17 0935 08/03/17 0851 Imaging Last Impressions Celiac/Hepatic Arteriogram 08/01/17 1413 Signed Impressions: Service Date/Time: July 11:36 - CONCLUSION: 1. Widely patent patent superior mesenteric artery with large collateral formation opacifying the site artery distribution characteristic of long-standing chronic process. 2. Complete occlusion of the celiac axis 3. Stenting was not performed Herman Rodríguez MD Abdomen/Pelvis CT 07/30/17 0928 Signed Impressions: Service Date/Time: Sunday, July 30, 2017 10:02 - CONCLUSION: 1. Cholelithiasis. 2. Small bilateral pleural effusions and slight anasarca. 3. Uterine fibroids. 4. Chronic episodic changes of multiple visceral arteries and not changed K. Taj Fang MD Hepatobiliary Scan Nuclear Medicine 07/30/17 0000 Signed Impressions: Service Date/Time: Sunday, July 30, 2017 21:57 - CONCLUSION: 1. Lack of visualization of the bowel concerning for common bile duct obstruction. Silvestre Gallego Jr., MD Cholangiopancreatography MRI 07/30/17 0000 Signed Impressions: Service Date/Time: Sunday, July 30, 2017 16:41 - CONCLUSION: 1. Cholelithiasis 2. No evidence of common duct stone Herman Rodríguez MD Objective Remarks GENERAL: Elderly female in no apparent distress. CARDIOVASCULAR: Normal rate and regular rhythm without murmurs, gallops, or rubs. RESPIRATORY: Good respiratory efforts. Breath sounds equal and clear to auscultation bilaterally. GASTROINTESTINAL: Abdomen soft, non-tender, non-distended. Normal active bowel sounds MUSCULOSKELETAL: Extremities without cyanosis, or edema. Status post right midfoot amputation NEURO: Alert & Oriented x4 to person, place, time, situation. Moves all ext x4 PSYCH: Appropriate mood and affect. Procedures abdominal angiogram. A/P Assessment and Plan abdominal pain with elevated LFT's HIDA with possible common duct obstruction GI consult appreciated; possible ERCP on Saturday. GI and surgery following. Change pain medication regimen to [place]. Advance to low-fat diet. 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 s/p abdominal angiogram; good collateral circulation- no stent placed. History of PE and DVT; eliquis was on hold for planned procedure; will resume when ok with GI and if no further procedures planned. CHF seems to be in decompensation with +2 edema in the lower extremity and BNP 4678; acute on chronic systolic. continue Lasix- continue to monitor clinically. DVT prophylaxis; Lovenox. Cinthya Salinas MD Aug 03, 2017 16:30
[2017-08-03] MEDS: ACETAMINOPHEN/HYDROcodone 325 MG/5 MG TAB PO PRN (17:47)
[2017-08-03] MEDS: ATORVASTATIN 10 MG TAB PO SCH (21:08)
[2017-08-04] VITALS (9 sets, daily range): BP systolic 120–154; BP diastolic 67–89; PULSE 71–83; RESP 16–22; TEMP 97.1–97.7; O2SAT 93–97
[2017-08-04] MEDS: PANTOPRAZOLE SODIUM 40 MG VIAL IV PUSH SCH ×2 (04:26→16:16)
[2017-08-04] MEDS: INSULIN ASPART SUPPLEMENTAL SCALE SQ SCH ×4 (08:00→20:36)
[2017-08-04] MEDS: ACETAMINOPHEN/HYDROcodone 325 MG/5 MG TAB PO PRN (09:24)
[2017-08-04] MEDS: CARVEDILOL 3.125 MG TAB PO SCH ×2 (10:48→20:36)
[2017-08-04] MEDS: CLOPIDOGREL 75 MG TAB PO SCH (10:48)
[2017-08-04] MEDS: SPIRONOLACTONE 25 MG TAB PO SCH (10:48)
[2017-08-04] MEDS: DOCUSATE SODIUM 50 MG/SENNA 8.6 MG TAB PO SCH ×2 (10:48→20:36)
[2017-08-04] MEDS: ENOXAPARIN SODIUM 40 MG/0.4 ML SYRINGE SQ SCH (10:49)
[2017-08-04] MEDS: FUROSEMIDE 40 MG/4 ML VIAL IV PUSH SCH ×2 (10:49→18:05)
--- NOTE | 2017-08-04 12:22 | HHI.GIFU ---
Subjective Remarks Pt resting at bed, at bedside. She appears to be sleeping and is calling out. When examined says "get that thing off my chest!" but will not answer other questions. d/w RN, pt seems to be less alert/more disoriented tdoay. c/o abd pain but is nontender on exam. Per had some egg this morning. Objective Vitals I&O Vital Signs Date Time Temp Pulse Resp B/P (MAP) Pulse Ox O2 Delivery O2 Flow Rate FiO2 08/04/17 08:00 97.2 81 22 143/76 (98) 94 08/04/17 04:00 97.7 82 20 140/89 (106) 93 08/04/17 03:52 76 08/04/17 00:07 71 08/04/17 00:00 97.6 76 16 120/67 (84) 97 08/03/17 20:18 76 08/03/17 20:00 97.6 76 16 123/69 (87) 98 08/03/17 16:00 97.1 73 20 113/66 (82) 94 08/03/17 15:01 76 I/O 08/03/17 08/03/17 08/03/17 08/04/17 08/04/17 08/04/17 07:00 15:00 23:00 07:00 15:00 23:00 Intake Total 500 ml 240 ml Balance 500 ml 240 ml Intake Oral 500 ml 240 ml # Voids 3 1 1 # Bowel Movements 1 Laboratory Date/Time Source Procedure Growth Status 07/30/17 09:45 Urine Catheterized Urine Urine Culture - Final Misty Glabrata Complete Imaging Last Impressions Celiac/Hepatic Arteriogram 08/01/17 1413 Signed Impressions: Service Date/Time: July 11:36 - CONCLUSION: 1. Widely patent patent superior mesenteric artery with large collateral formation opacifying the site artery distribution characteristic of long-standing chronic process. 2. Complete occlusion of the celiac axis 3. Stenting was not performed Herman Rodríguez MD Abdomen/Pelvis CT 07/30/17 0957 Signed Impressions: Service Date/Time: Sunday, July 30, 2017 10:02 - CONCLUSION: 1. Cholelithiasis. 2. Small bilateral pleural effusions and slight anasarca. 3. Uterine fibroids. 4. Chronic episodic changes of multiple visceral arteries and not changed K. Taj Fang MD Hepatobiliary Scan Nuclear Medicine 07/30/17 0000 Signed Impressions: Service Date/Time: Sunday, July 30, 2017 21:57 - CONCLUSION: 1. Lack of visualization of the bowel concerning for common bile duct obstruction. Silvestre Gallego Jr., MD Cholangiopancreatography MRI 07/30/17 0000 Signed Impressions: Service Date/Time: Sunday, July 30, 2017 16:41 - CONCLUSION: 1. Cholelithiasis 2. No evidence of common duct stone Herman Rodríguez MD Physical Exam HEENT: normocephalic; atraumatic; no jaundice. Pale skin, obese CHEST: CTA CARDIAC: RRR ABDOMEN: Soft, obese, nontender; no hepatosplenomegaly; bowel sounds are present in all four quadrants. EXTREMITIES: No clubbing, cyanosis, + BLE edema. SKIN: Normal; no rash; no jaundice. 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 LFTs continue trending down. Plan - evaluated by IR, angiography, stenting not able to be performed, not cause pts sx LFTs improving. GS following. PLAN - recommend cholecystectomy with IOC - poss ERCP after cholecystectomy and IOC - ok to restart eliquis - GI will sign off. Please reconsult if needed d/w with Dr Barrow and this note is written on his behalf Jacinda Dunn Aug 04, 2017 12:22
[2017-08-04 13:43] LABS: HEMATOCRIT 40.6 % (35.0-46.0); MEAN CELL VOLUME 103.2 FL (80.0-100.0); MEAN CORPUSCULAR HEMOGLOBIN 33.1 PG (27.0-34.0); MEAN PLATELET VOLUME 9.4 FL (7.0-11.0); PLATELET COUNT 150 TH/MM3 (150-450); RED BLOOD COUNT 3.93 MIL/MM3 (4.00-5.30); RED CELL DISTRIBUTION WIDTH 23.2 % (11.6-17.2); WHITE BLOOD COUNT 5.4 TH/MM3 (4.0-11.0)
[2017-08-04 14:08] LABS: ALBUMIN 3.3 GM/DL (3.4-5.0); BICARBONATE 29.7 MEQ/L (21.0-32.0); CALCIUM 8.7 MG/DL (8.5-10.1); CREATININE 1.29 MG/DL (0.50-1.00)
[2017-08-04 14:09] LABS: DIRECT BILIRUBIN ADULT 1.2 MG/DL (0.0-0.2)
[2017-08-04 14:11] LABS: INDIRECT BILIRUBIN 1.1 MG/DL (0.0-0.8); TOTAL BILIRUBIN ADULT 2.3 MG/DL (0.2-1.0); TOTAL PROTEIN 6.5 GM/DL (6.4-8.2)
--- NOTE | 2017-08-04 15:02 | HHI.PR ---
Subjective Remarks Patient denies any pain. Discussed with her . He reports that she is more confused today after she received the pain medication. Objective Vitals Vital Signs Date Time Temp Pulse Resp B/P (MAP) Pulse Ox O2 Delivery O2 Flow Rate FiO2 08/04/17 12:00 97.1 81 22 151/85 (107) 94 08/04/17 08:00 97.2 81 22 143/76 (98) 94 08/04/17 08:00 81 08/04/17 04:00 97.7 82 20 140/89 (106) 93 08/04/17 03:52 76 08/04/17 00:07 71 08/04/17 00:00 97.6 76 16 120/67 (84) 97 08/03/17 20:18 76 08/03/17 20:00 97.6 76 16 123/69 (87) 98 08/03/17 16:00 97.1 73 20 113/66 (82) 94 I/O 08/03/17 08/03/17 08/03/17 08/04/17 08/04/17 08/04/17 07:00 15:00 23:00 07:00 15:00 23:00 Intake Total 500 ml 240 ml Balance 500 ml 240 ml Intake Oral 500 ml 240 ml # Voids 3 1 1 # Bowel Movements 1 Result Diagram: 08/04/17 1317 08/04/17 1317 Objective Remarks GENERAL: Elderly female in no apparent distress. CARDIOVASCULAR: Normal rate and regular rhythm without murmurs, gallops, or rubs. RESPIRATORY: Good respiratory efforts. Breath sounds equal and clear to auscultation bilaterally. GASTROINTESTINAL: Abdomen soft, non-tender, non-distended. Normal active bowel sounds MUSCULOSKELETAL: Extremities without cyanosis, or edema. Status post right midfoot amputation NEURO: Patient is disoriented, will not follow commands but move all ext spontaneously. Will say some words but not appropriate. PSYCH: Appear anxious. Procedures abdominal angiogram. A/P Assessment and Plan 71-year-old female with: Abdominal pain with elevated LFT's HIDA with possible common duct obstruction GI consult appreciated; GI recommends cholecystectomy and possible ERCP after Cholecystectomy. GI and surgery following. Pain control Advance to low-fat diet. 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 s/p abdominal angiogram; good collateral circulation- no stent placed. Delirium: Unclear if this is due to Narcotic. ? if underlying psych disorder - Stop all Narcotics. Monitor neuro status. Check ammonia History of PE and DVT; eliquis was on hold for planned procedure; will resume when ok with GI and if no further procedures planned. CHF seems to be in decompensation with +2 edema in the lower extremity and BNP 4678; acute on chronic systolic. continue Lasix- continue to monitor clinically. Recheck BNP DVT prophylaxis; Lovenox. Discharge Planning Pending improvement and further input from Surgery. Cinthya Salinas MD Aug 04, 2017 15:02
[2017-08-04] MEDS: FLUCONAZOLE 200 MG TAB PO SCH (18:05)
[2017-08-04] MEDS: ACETAMINOPHEN 325 MG TAB PO PRN (18:30)
[2017-08-04] MEDS: ATORVASTATIN 10 MG TAB PO SCH (20:36)
[2017-08-05] VITALS (7 sets, daily range): BP systolic 131–163; BP diastolic 72–86; PULSE 72–83; RESP 20–22; TEMP 97–98; O2SAT 92–96
[2017-08-05] MEDS: PANTOPRAZOLE SODIUM 40 MG VIAL IV PUSH SCH ×2 (04:02→17:27)
[2017-08-05] MEDS: INSULIN ASPART SUPPLEMENTAL SCALE SQ SCH ×4 (08:00→21:00)
[2017-08-05] MEDS ORDERED: LACTULOSE SYRUP 20 GM/30 ML CUP PO ONE (09:45)
[2017-08-05] MEDS: DOCUSATE SODIUM 50 MG/SENNA 8.6 MG TAB PO SCH ×2 (09:53→21:41)
[2017-08-05] MEDS: CLOPIDOGREL 75 MG TAB PO SCH (09:53)
[2017-08-05] MEDS: CARVEDILOL 3.125 MG TAB PO SCH ×2 (09:53→21:41)
[2017-08-05] MEDS: ENOXAPARIN SODIUM 40 MG/0.4 ML SYRINGE SQ SCH (09:53)
[2017-08-05] MEDS: FLUCONAZOLE 200 MG TAB PO SCH (09:54)
[2017-08-05] MEDS: SPIRONOLACTONE 25 MG TAB PO SCH (09:54)
[2017-08-05] MEDS: FUROSEMIDE 40 MG/4 ML VIAL IV PUSH SCH ×2 (09:54→17:28)
[2017-08-05] MEDS: ACETAMINOPHEN 325 MG TAB PO PRN (09:54)
--- NOTE | 2017-08-05 11:07 | RADRPT ---
EXAM DATE/TIME: 08/05/2017 10:35 [place] COMPARISON: CHEST SINGLE AP, July 21, 2017, 11:57. INDICATIONS : Short of breath, evaluate congestive heart failure MEDICAL HISTORY : Congestive heart failure. Diabetes mellitus type II. SURGICAL HISTORY : None. ENCOUNTER: Subsequent ACUITY: 4 - 6 days PAIN SCORE: Non-responsive. LOCATION: Bilateral chest FINDINGS: A single view of the chest demonstrates hypoinflation with bibasilar atelectatic changes. There may b e small bilateral pleural effusions, right greater than left. Interstitial markings are somewhat mackenzie stinct and slightly prominent suggesting some degree of vascular congestion or volume overload. Heart size is borderline prominent. Atherosclerotic calcification of the thoracic and upper abdominal aort a. Osseous structures are intact.. CONCLUSION: 1. Bibasilar atelectatic changes with possible small associated pleural effusions. 2. Heart size is borderline prominent with possible element of vascular congestion or volume overload . This is slightly worse when compared to the prior Rosalio Chavez MD on August 05, 2017 at 11:01 Board Certified Radiologist. This report was verified electronically.
--- NOTE | 2017-08-05 14:35 | HHI.PR ---
Subjective Remarks Patient reports she is feeling okay. She reports she only gets pain at night. More awake and conversant today. Denies pain currently Objective Vitals Vital Signs Date Time Temp Pulse Resp B/P (MAP) Pulse Ox O2 Delivery O2 Flow Rate FiO2 08/05/17 09:53 96 08/05/17 09:30 97.8 79 22 148/80 (102) 94 08/05/17 04:00 98.0 73 20 136/74 (94) 96 08/05/17 00:00 97.6 72 20 133/72 (92) 92 08/04/17 23:45 19 08/04/17 23:42 80 08/04/17 20:00 79 08/04/17 20:00 97.2 82 20 144/78 (100) 93 08/04/17 16:00 97.4 83 22 154/80 (104) 93 I/O 08/04/17 08/04/17 08/04/17 08/05/17 08/05/17 08/05/17 07:00 15:00 23:00 07:00 15:00 23:00 Intake Total 240 ml 400 ml 220 ml Output Total 400 ml Balance 240 ml 400 ml -180 ml Intake Oral 240 ml 400 ml 220 ml Output Urine Total 400 ml # Voids 1 4 # Bowel Movements 0 Result Diagram: 08/04/17 1317 08/04/17 1317 Objective Remarks GENERAL: Elderly female in no apparent distress. CARDIOVASCULAR: Normal rate and regular rhythm without murmurs, gallops, or rubs. RESPIRATORY: Good respiratory efforts. Breath sounds equal and clear to auscultation bilaterally. GASTROINTESTINAL: Abdomen soft, non-tender, non-distended. Normal active bowel sounds MUSCULOSKELETAL: Extremities without cyanosis, or edema. Status post right midfoot amputation NEURO: Alert and oriented. Normal speech PSYCH: Calm. Procedures abdominal angiogram. A/P Assessment and Plan 71-year-old female with: Abdominal pain with elevated LFT's HIDA with possible common duct obstruction GI consult appreciated; GI recommends cholecystectomy and possible ERCP after Cholecystectomy. GI and surgery following. Pain control Advance to low-fat diet. 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 s/p abdominal angiogram; good collateral circulation- no stent placed. - Oxycodone at PRN at night only Delirium vs hepatic encephalopathy. Ammonia elevated: Much improved -Monitor neuro status. Lactulose ordered History of PE and DVT; Eliquis was on hold for planned procedure; will resume when ok with GI and if no further procedures planned. CHF seems to be in decompensation with +2 edema in the lower extremity and BNP 4678; acute on chronic systolic. continue IV Lasix- continue to monitor clinically. BNP still high DVT prophylaxis; Lovenox. Discharge Planning Continue IV lasix. Further input from Surgery. Cinthya Salinas MD Aug 05, 2017 14:35
[2017-08-05] MEDS: LACTULOSE SYRUP 20 GM/30 ML CUP PO SCH (17:45)
[2017-08-05] MEDS: ATORVASTATIN 10 MG TAB PO SCH (21:41)
[2017-08-05 22:13] LABS: ALBUMIN 3.2 GM/DL (3.4-5.0); AST (GOT) 27 U/L (15-37); BICARBONATE 28.9 MEQ/L (21.0-32.0); BLOOD UREA NITROGEN 21 MG/DL (7-18); CALCIUM 8.7 MG/DL (8.5-10.1); CHLORIDE 99 MEQ/L (98-107); CREATININE 1.45 MG/DL (0.50-1.00); GLOMERULAR FILTRATION RATE 36 ML/MIN (>89); GLUCOSE,RANDOM 113 MG/DL (74-106); SODIUM (NA) 138 MEQ/L (136-145)
[2017-08-05 22:14] LABS: ALT (GPT) 38 U/L (10-53)
[2017-08-05 22:17] LABS: ALKALINE PHOSPHATASE 208 U/L (45-117); TOTAL BILIRUBIN ADULT 2.9 MG/DL (0.2-1.0); TOTAL PROTEIN 6.1 GM/DL (6.4-8.2)
[2017-08-06] VITALS (11 sets, daily range): BP systolic 143–155; BP diastolic 68–91; PULSE 70–82; RESP 18–20; TEMP 97.1–98.3; O2SAT 90–100
[2017-08-06] MEDS: PANTOPRAZOLE SODIUM 40 MG VIAL IV PUSH SCH ×2 (03:33→16:17)
[2017-08-06] MEDS: INSULIN ASPART SUPPLEMENTAL SCALE SQ SCH ×2 (08:00→08:34)
[2017-08-06] MEDS: SPIRONOLACTONE 25 MG TAB PO SCH (08:25)
[2017-08-06] MEDS: CARVEDILOL 3.125 MG TAB PO SCH ×2 (08:25→20:41)
[2017-08-06] MEDS: DOCUSATE SODIUM 50 MG/SENNA 8.6 MG TAB PO SCH ×2 (08:25→20:41)
[2017-08-06] MEDS: CLOPIDOGREL 75 MG TAB PO SCH (08:25)
[2017-08-06] MEDS: ENOXAPARIN SODIUM 40 MG/0.4 ML SYRINGE SQ SCH (08:25)
[2017-08-06] MEDS: FLUCONAZOLE 200 MG TAB PO SCH (08:25)
[2017-08-06] MEDS: FUROSEMIDE 40 MG/4 ML VIAL IV PUSH SCH ×2 (08:26→16:17)
[2017-08-06] MEDS: LACTULOSE SYRUP 20 GM/30 ML CUP PO SCH (08:34)
[2017-08-06 08:39] LABS: HEMATOCRIT 38.6 % (35.0-46.0); HEMOGLOBIN 12.5 GM/DL (11.6-15.3); INTERNATIONAL NORMALIZED RATIO 2.3 RATIO; MEAN CELL VOLUME 102.5 FL (80.0-100.0); MEAN CORPUSCULAR HEMOGLOBIN 33.1 PG (27.0-34.0); MEAN CORPUSCULAR HGB CONC 32.3 % (32.0-36.0); PLATELET COUNT 154 TH/MM3 (150-450); PROTHROMBIN TIME - PATIENT 22.8 SEC (9.8-11.6); RED BLOOD COUNT 3.76 MIL/MM3 (4.00-5.30); RED CELL DISTRIBUTION WIDTH 22.8 % (11.6-17.2); WHITE BLOOD COUNT 6.4 TH/MM3 (4.0-11.0)
[2017-08-06 09:00] LABS: BICARBONATE 27.5 MEQ/L (21.0-32.0); CALCIUM 8.8 MG/DL (8.5-10.1); CREATININE 1.49 MG/DL (0.50-1.00); DIRECT BILIRUBIN ADULT 1.4 MG/DL (0.0-0.2)
[2017-08-06 09:03] LABS: INDIRECT BILIRUBIN 1.6 MG/DL (0.0-0.8); TOTAL PROTEIN 6.1 GM/DL (6.4-8.2)
--- NOTE | 2017-08-06 09:47 | HHI.PR ---
cc: Que Leon MD Subjective Subjective Notes Moaning in pain at bedside---very concerned about her pain control Objective Vitals/I&O Vital Signs Date Time Temp Pulse Resp B/P (MAP) Pulse Ox O2 Delivery O2 Flow Rate FiO2 08/06/17 08:32 97.4 78 20 145/80 (101) 98 Labs Laboratory Tests Test 08/05/17 21:10 08/06/17 07:37 Blood Urea Nitrogen 21 23 Creatinine 1.45 1.49 Random Glucose 113 117 Total Protein 6.1 6.1 Albumin 3.2 3.0 Calcium Level 8.7 8.8 Alkaline Phosphatase 208 203 Aspartate Amino Transf (AST/SGOT) 27 32 Alanine Aminotransferase (ALT/SGPT) 38 41 Total Bilirubin 2.9 3.0 Sodium Level 138 137 Potassium Level 3.4 3.6 Chloride Level 99 97 Carbon Dioxide Level 28.9 27.5 Anion Gap 10 13 Estimat Glomerular Filtration Rate 36 34 White Blood Count 6.4 Red Blood Count 3.76 Hemoglobin 12.5 Hematocrit 38.6 Mean Corpuscular Volume 102.5 Mean Corpuscular Hemoglobin 33.1 Mean Corpuscular Hemoglobin Concent 32.3 Red Cell Distribution Width 22.8 Platelet Count 154 Mean Platelet Volume 10.0 Prothrombin Time 22.8 Prothromb Time International Ratio 2.3 Direct Bilirubin 1.4 Indirect Bilirubin 1.6 Date/Time Source Procedure Growth Status 07/30/17 09:45 Urine Catheterized Urine Urine Culture - Final Misty [place] Complete Radiology Last 48 hours Impressions Abdomen/Pelvis CT 07/30/17 0928 Signed Impressions: Service Date/Time: Sunday, July 30, 2017 10:02 - CONCLUSION: 1. Cholelithiasis. 2. Small bilateral pleural effusions and slight anasarca. 3. Uterine fibroids. 4. 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 Lack of visualization of the bowel concerning for common bile duct obstruction. Silvestre Gallego Jr., MD Cholangiopancreatography MRI 07/30/17 0000 Signed Impressions: Service Date/Time: Sunday, July 30, 2017 16:41 - CONCLUSION: 1. Cholelithiasis 2. No evidence of common duct stone Herman Rodríguez MD Cardiovascular: Regular Lungs: Clear Abdomen: Non-distended, Other (periumbilical pain; no RUQ tenderness with palpation ) Extremities: No edema A/P Assessment and Plan 71 year old female with abdominal pain; celiac SMA; gallstones; chronic mesenteric ischemia -Pain/symptoms likely related to chronic mesenteric ischemia -Patient high surgical risk -Continue anticoagulation -Diet as tolerated -May benefit from gentle hydration---elevated BUN/Cr likely from low blood flow to kidneys---but with elevated BNP will defer to Medical Team for management -Consulted Palliative Care for chronic mesenteric ischemia; pain control -Long discussion with at bedside----all questions answered -Again, at this time time pain not consistent with a gallbladder etiology but more chronic mesenteric ischemia ---likely end stage unfortunately at this point Attending Statement The exam, history, and the medical decision-making described in the above note were completed with the assistance of the mid-level provider. I reviewed and agree with the findings presented. I attest that I had a [id number] encounter with the patient on the same day, and personally performed and documented my assessment and findings in the medical record. Abdominal Exam: soft, non-distended, no rebound tenderness or peritonitis, subjectively tender patient's gallstones are incidental/asymptomatic patient has severe vascular disease and chronic mesenteric ischemia, little options medically or surgically for treatment of chronic mesenteric ischemia, long d/w , continue anticoagualtion, consider vascular surgery consult vs. palliative care. Alona Heard Aug 06, 2017 09:47 Que Leon MD Aug 09, 2017 00:12
[2017-08-06] MEDS: ACETAMINOPHEN 325 MG TAB PO PRN (11:41)
--- NOTE | 2017-08-06 12:02 | PD.CONS ---
Consult Service Palliative Care . Consult Requested By Alona HATFIELD . Primary Care Physician Lorenzo Oviedo MD Reason for Consultation a. To assist with evaluation and management of symptoms including: pain, debility, encephalopathy b. To assist medical decision maker(s) with: better understanding of current medical conditions; weighing benefits/burdens of medical treatment options; making medical treatment decisions. . HPI History of Present Illness Mrs. Melton presented to [facility] ED on 07/30/2017 complaints of epigastric abdominal pain. The patient reported the pain had been intermittent and severe since the night before. The patient was hospitalized at [facility] for 17 days being discharged on 07/21/2017 and was rehospitalized at [facility] 07/21/2017 through 07/23/2017 with similar complaints. During her most recent hospitalization, a CT of the abdomen and pelvis showed high-grade stenosis of the celiac SMA. Vascular surgery evaluated the patient at that time and felt she was not a surgical candidate. 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 Patient has diabetes mellitus complicated with DVT left lower extremity post surgical toe amputations 2 in August and September 2016. Toes just healed in April 2017. Additional diagnostic data: * WBC: 5.8, hemoglobin 12.5, hematocrit 37.9, platelets 188 * Sodium: 141, potassium 3.6, chloride 102, and dioxide 27.4, glucose 122, calcium 8.9 * BUN: 23, creatinine 1.45, GFR 36 * Total bilirubin: 2.0, AST 69, ALT 75, alkaline phosphatase 311 * Total protein 6.9, albumin 3.6 * Urinalysis suspicious for UTI; urine culture with Misty Glabrata * HIDA scan showed lack of visualization of the bowel concerning for common bile duct obstruction. * CT abdomen/pelvis showed cholelithiasis, small bilateral pleural effusion and slight anasarca, uterine fibroids, chronic episodic changes of multiple visceral arteries that had not changed from previous imaging. Patient was admitted with intractable abdominal pain and further evaluation of possible cholelithiasis. Gastroenterology was consulted. Abdominal pain has become progressively worse since August,. She has acute onset pain rated 10 out of 10 with bloating but does not seem to be related to eating. LFTs are mildly elevated. MRCP revealed cholelithiasis with no evidence of common duct stone. Recommendations for ERCP if cleared I cardiology. Interventional Radiology has been consulted for possible stent placement for her celiac. A General Surgery consultation has been requested for evaluation of abdominal pain. Most recent echocardiogram on 07/23/2017 showed severely reduced LV systolic function with an estimated ejection fraction in the region of 25-30%. BNP elevated at 4678, responding to IV Lasix. Per cardiology, there is an intermittent risk in regards to recommended IR procedure. Patient has no active cardiac complaints although her baseline functional capacity is limited. Cardiology does not recommend any invasive cardiac interventions prior to the IR procedure, preferably continue medical management of CHF as well as CAD. Recommendations for patient to follow-up with cardiology outpatient. Angiogram of the celiac artery on 08/01/2017 showed widely patent superior mesenteric artery with large collateral formation opacifying the site artery distribution characteristic of long-standing chronic process, complete occlusion of the celiac access. Stenting was not performed. Gastroenterology recommends for cholecystectomy with IOC and possible ERCP. Patient having ongoing abdominal pain. General surgery continues to follow, liver patient remains high risk for surgery. At this time pain is not consistent with a gallbladder etiology but is more likely chronic mesenteric ischemia. Palliative Care was consulted to assist with symptom management and to discuss with the patient/family the benefits and burdens of her current illnesses and the options regarding future care. . Function/Cognitive Trajectory Patient has a complex medical history. 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 Patient has diabetes mellitus complicated with DVT left lower extremity post surgical toe amputations 2 in 2017. Patient has been hospitalized 3 times in the past 6 weeks. Patient's states the patient has been primarily bedbound in recent months, but she is able to get out of bed and "furniture walk " into the next room. . Review of Systems ROS Limitations: Clinical Condition, Altered Mental Status, Hearing Impaired Constitutional: COMPLAINS OF: Fatigue, Change in appetite (Early satiety), Pain (Abdominal pain and back pain reported) Eyes: COMPLAINS OF: Vision loss Ears, nose, mouth, throat: COMPLAINS OF: Hearing loss (deaf in right ear; KOI and left ear) Gastrointestinal: COMPLAINS OF: Abdominal pain Musculoskeletal: COMPLAINS OF: Back pain Neurologic: COMPLAINS OF: Abnormal gait, Poor Balance Psychiatric: COMPLAINS OF: Confusion Past Family Social History Coded Allergies: aspirin (Verified Allergy, Intermediate, hives, 07/30/17) Iodinated Contrast- Oral and IV Dye (Verified Adverse Reaction, Severe, kidney failure, 07/30/17) Past Medical History Diabetes mellitus Cardiovascular disease, probable end-stage Congestive heart failure 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 Past Surgical History Cataract removal Retinal surgery 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 foot in August, Left lower extremity vascular angioplasty and stent placement Reported Medications Plavix (Clopidogrel Bisulfate) 75 Mg Tab 75 Mg PO DAILY Protonix (Pantoprazole Sodium) 40 Mg Tab 40 Mg PO DAILY Furosemide 40 Mg Tab 40 Mg PO DAILY Dicyclomine (Dicyclomine HCl) 10 Mg Cap 10 Mg PO TID PRN Coreg (Carvedilol) 3.125 Mg Tab 3.125 Mg PO BID Atorvastatin (Atorvastatin Calcium) 10 Mg Tab 10 Mg PO HS Eliquis (Apixaban) 2.5 Mg Tab 2.5 Mg PO BID . Current Medications Medications (Trade) Dose Ordered Sig/Lisbet Route Start Time Stop Time Status Last Admin (Protonix Inj) 40 mg Q12H IV PUSH 07/30/17 16:00 08/06/17 03:33 (Lipitor) 10 mg HS PO 07/30/17 21:00 08/05/17 21:41 (Coreg) 3.125 mg BID PO 07/30/17 21:00 08/06/17 08:25 (Plavix) 75 mg DAILY PO 07/31/17 09:00 08/06/17 08:25 (Lasix Inj) 40 mg BID@ IV PUSH 07/30/17 18:00 08/06/17 08:26 (Aldactone) 25 mg DAILY PO 07/30/17 17:00 08/06/17 08:25 (NovoLOG SUPPLEMENTAL SCALE) 1 ACHS SLIDING SCALE SQ 07/30/17 17:00 08/03/17 17:00 (D50w (Vial) Inj) 50 ml UNSCH PRN IV PUSH 07/30/17 16:45 (Glucagon Inj) 1 mg UNSCH PRN OTHER 07/30/17 16:45 (Tylenol) 650 mg Q4H PRN PO 08/01/17 14:15 08/05/17 09:54 (Marj-Colace) 1 tab BID PO 08/02/17 21:00 08/06/17 08:25 (Lovenox Inj) 40 mg Q24H SQ 08/03/17 08:00 08/06/17 08:25 (Diflucan) 200 mg DAILY PO 08/04/17 17:00 08/06/17 08:25 (Lactulose Liq) 30 ml DAILY PO 08/05/17 17:45 Family History Patient's mother in 2013 from complications related to heart disease. Patient's father in 1976 for unknown reasons, possible heart attack. . Substance Use Tobacco: None known Alcohol: None known Prescription med abuse: None known Illicits: None known . Psychosocial History Patient was born in [place], her father was a driver examiner. She also lived in [place] and [place], [place]. She has one brother who is alive and living in [place]. Patient has been twice; she is currently to her third (Domo). Domo been approximately 22 years. Domo has been and 3 times previously. Claire has 3 adult girls ( Gloria, Flaquita and Cathy). 2 of her daughters are living locally in [place]. Patient's spouse has 4 adult children, all living in [place]. . Spiritual/Cultural Factors Nonreligious . Living Will: Never completed Health Care Surrogate: Never completed Durable Power of Outside Sales Inspector: Never completed Documented care wishes: No document of care wishes have been completed her spouse. . Today's verbally stated goals: Patient is confused and does not respond to my questions. She does not have insight or judgment related to her current clinical conditions and is unable to verbalize her medical treatment goals at this time. . Family/friends goals: Patient's is frustrated and states the patient's medical condition has become worse during multiple, recent hospitalizations. He reluctantly asked to speak with someone from hospice services and is considering transitioning to comfort focused care. He asked that the word "hospice" not be used in front of his initially until a decision has been made. . Ethical and Legal Issues Per [place] statutes, in the absence of written advanced directives healthcare proxy decision-making falls to the patient's . . Physical Exam Vital Signs Date Time Temp Pulse Resp B/P (MAP) Pulse Ox O2 Delivery O2 Flow Rate FiO2 08/06/17 08:32 97.4 78 20 145/80 (101) 98 08/06/17 08:00 75 08/06/17 05:06 97.3 80 20 155/73 (100) 92 08/06/17 04:00 97.3 80 20 155/73 (100) 92 08/06/17 00:00 98.3 82 18 152/91 (111) 90 08/05/17 20:00 97.1 80 20 163/83 (109) 92 08/05/17 16:00 97.0 83 22 131/86 (101) 94 08/05/17 12:00 97.2 81 22 138/74 (95) 94 Exam CONSTITUTIONAL/GENERAL: This is an adequately nourished patient, in no apparent distress. TUBES/LINES/DRAINS: SKIN: No jaundice, rashes, or lesions. Ecchymoses on upper extremities. No wounds seen anteriorly. Skin temperature appropriate. Not diaphoretic. HEAD: Atraumatic. Normocephalic. EYES: Pupils equal and round and reactive. Extraocular motions intact. No scleral icterus. No injection or drainage. Fundi not examined. ENT: Hearing grossly normal. Nose without bleeding or purulent drainage. Throat without visible erythema, exudates, masses, or lesions. NECK: Trachea midline. Supple, nontender. No palpable thyroid enlargement or nodularity. CARDIOVASCULAR: Regular rate and rhythm without murmurs, gallops, or rubs. No JVD. Peripheral pulses symmetric. RESPIRATORY/CHEST: Symmetric, unlabored respirations. Clear to auscultation. Breath sounds equal bilaterally. No wheezes, rales, or rhonchi. GASTROINTESTINAL: Abdomen soft, non-tender, nondistended. No hepato-splenomegaly , or palpable masses. No guarding. Bowel sounds present. GENITOURINARY: Without palpable bladder distension. Duran catheter in place. MUSCULOSKELETAL: Extremities without clubbing, cyanosis, or edema. No joint tenderness or effusion noted. No calf tenderness. No mottling or clubbing. LYMPHATICS: No palpable cervical or supraclavicular adenopathy. NEUROLOGICAL: Awake and alert. Motor and sensory grossly within normal limits. Follows commands. Cognitively sharp. Moves all extremities. PSYCHIATRIC: No obvious anxiety/depression. no apparent hallucinations or other psychotic thought process. Diagnostic Tests Laboratory Laboratory Tests Test 08/04/17 13:17 08/04/17 20:50 08/05/17 21:10 08/06/17 07:37 White Blood Count 5.4 TH/MM3 (4.0-11.0) 6.4 TH/MM3 (4.0-11.0) Red Blood Count 3.93 MIL/MM3 (4.00-5.30) 3.76 MIL/MM3 (4.00-5.30) Hemoglobin 13.0 GM/DL (11.6-15.3) 12.5 GM/DL (11.6-15.3) Hematocrit 40.6 % (35.0-46.0) 38.6 % (35.0-46.0) Mean Corpuscular Volume 103.2 FL (80.0-100.0) 102.5 FL (80.0-100.0) Mean Corpuscular Hemoglobin 33.1 PG (27.0-34.0) 33.1 PG (27.0-34.0) Mean Corpuscular Hemoglobin Concent 32.0 % (32.0-36.0) 32.3 % (32.0-36.0) Red Cell Distribution Width 23.2 % (11.6-17.2) 22.8 % (11.6-17.2) Platelet Count 150 TH/MM3 (150-450) 154 TH/MM3 (150-450) Mean Platelet Volume 9.4 FL (7.0-11.0) 10.0 FL (7.0-11.0) Blood Urea Nitrogen 18 MG/DL (7-18) 21 MG/DL (7-18) 23 MG/DL (7-18) Creatinine 1.29 MG/DL (0.50-1.00) 1.45 MG/DL (0.50-1.00) 1.49 MG/DL (0.50-1.00) Random Glucose 115 MG/DL (74-106) 113 MG/DL (74-106) 117 MG/DL (74-106) Total Protein 6.5 GM/DL (6.4-8.2) 6.1 GM/DL (6.4-8.2) 6.1 GM/DL (6.4-8.2) Albumin 3.3 GM/DL (3.4-5.0) 3.2 GM/DL (3.4-5.0) 3.0 GM/DL (3.4-5.0) Calcium Level 8.7 MG/DL (8.5-10.1) 8.7 MG/DL (8.5-10.1) 8.8 MG/DL (8.5-10.1) Alkaline Phosphatase 224 U/L (45-117) 208 U/L (45-117) 203 U/L (45-117) Aspartate Amino Transf (AST/SGOT) 32 U/L (15-37) 27 U/L (15-37) 32 U/L (15-37) Alanine Aminotransferase (ALT/SGPT) 42 U/L (10-53) 38 U/L (10-53) 41 U/L (10-53) Total Bilirubin 2.3 MG/DL (0.2-1.0) 2.9 MG/DL (0.2-1.0) 3.0 MG/DL (0.2-1.0) Direct Bilirubin 1.2 MG/DL (0.0-0.2) 1.4 MG/DL (0.0-0.2) Sodium Level 140 MEQ/L (136-145) 138 MEQ/L (136-145) 137 MEQ/L (136-145) Potassium Level 3.4 MEQ/L (3.5-5.1) 3.4 MEQ/L (3.5-5.1) 3.6 MEQ/L (3.5-5.1) Chloride Level 99 MEQ/L (98-107) 99 MEQ/L (98-107) 97 MEQ/L (98-107) Carbon Dioxide Level 29.7 MEQ/L (21.0-32.0) 28.9 MEQ/L (21.0-32.0) 27.5 MEQ/L (21.0-32.0) Anion Gap 11 MEQ/L (5-15) 10 MEQ/L (5-15) 13 MEQ/L (5-15) Estimat Glomerular Filtration Rate 41 ML/MIN (>89) 36 ML/MIN (>89) 34 ML/MIN (>89) Indirect Bilirubin 1.1 MG/DL (0.0-0.8) 1.6 MG/DL (0.0-0.8) B-Type Natriuretic Peptide GREATER THAN 5000 PG/ML Ammonia 34 MCMOL/L (11-32) Prothrombin Time 22.8 SEC (9.8-11.6) Prothromb Time International Ratio 2.3 RATIO . Result Diagram: 08/06/17 0737 08/06/17 0737 Imaging Last 72 hours Impressions Chest X-Ray 08/05/17 0000 Signed Impressions: Service Date/Time: Saturday, August 05, 2017 10:35 - CONCLUSION: 1. Bibasilar atelectatic changes with possible small associated pleural effusions. 2. Heart size is borderline prominent with possible element of vascular congestion or volume overload. This is slightly worse when compared to the prior Rosalio Chavez MD . Patient/Family Conference Present at Family Conference: Met with patient and spouse at bedside; also spoke with patient's spouse privately. . Family Conference Location: Bedside, Hallway Issues Discussed: * Palliative care role, purpose, approach * Additional medical, psychosocial, and spiritual history * Patients general health, functional status, and cognitive changes in the months leading up to the current hospitalization * Patient/family understanding of the current medical problems * Patient/family understanding of prognosis * Patients goals of care as best understood from advance directives and/or conversations and/or values * Current medical treatment options and benefits/burdens of those options * Likely scenarios comparing ongoing aggressive care with a transition to comfort measures only * Questions answered to the best of my ability * Palliative care contact information provided . Assessment and Plan Disease Oriented Problem List: (1) CHF (congestive heart failure) (2) Personal history of DVT (deep vein thrombosis) (3) Diabetes (4) Coronary artery disease (5) Urinary tract infection (6) Mesenteric ischemia, chronic (7) UTI (urinary tract infection) (8) Cholelithiasis (9) Elevated LFTs Symptom Scale: (1) Encephalopathy 0-10 Scale: Unable to quantify (2) Pain 0-10 Scale: Unable to quantify Comment: Patient is confused and does not answer my questions. Patient initially showing no nonverbal signs of pain or distress, but she later appears painful as evidenced by moaning and grimacing. Nurse (Brisa) notified. (3) Debility 0-10 Scale: Unable to quantify Pertinent Non-Medical Issues Psychosocial: Patient was born in [place], her father was a driver examiner. She also lived in [place] and [place], [place]. She has one brother who is alive and living in [place]. Patient has been twice; she is currently to her third (Domo). Domo been approximately 22 years. Domo has been and 3 times previously. Claire has 3 adult girls (Gloria, Flaquita and Cathy). 2 of her daughters are living locally in [place]. Patient's spouse has 4 adult children, all living in [place]. Spiritual: Non-baptist Legal: Per [place] statutes, in the absence of written advanced directives healthcare proxy decision-making falls to the patient's Ethical issues impacting care: No known ethical issues impacting care at this time. . Important Contacts Domo Melton, : [phone] or [phone] . Prognosis Patient is a morbidly obese 71-year-old female with a complex medical history who has been hospitalized 3 times in the past 6 weeks. Patient has had intractable abdominal pain secondary to celiac SMA, gallstones and suspected chronic mesenteric ischemia. She is not a candidate for surgery. Patient is high risk for continued decline and complications secondary to her advanced age , multiple comorbid conditions and poor performance status. . Code Status: Full Code Plan * FULL CODE * Decision-making: Patient does not have insight or judgment related to her current clinical conditions; it is unclear if patient will regain capacity. Per [place] statutes, in the absence of written advanced directives healthcare proxy decision making would fall to the patient's spouse. * GOALS REMAIN AGGRESSIVE AT THIS TIME. * Patient's is frustrated and states the patient's medical condition has become worse during multiple, recent hospitalizations. He reluctantly asked to speak with someone from hospice services and is considering transitioning to comfort focused care. He asked that the word "hospice" not be used in front of his initially until a decision has been made. * Hospice consult pending-spoke with Ingrid and hospice intake. * Discussed with Dr. Salinas, Alona HATFIELD, bedside nurse (Brisa) and case management director (Fabi). * Palliative care contact information provided to the patient's * Symptom management-pain: Patient exhibiting moderate to severe pain on exam as evidenced by grimacing and moaning. History of persistent abdominal pain; celiac SMA; gallstones and chronic mesenteric ischemia. Patient previously had orders for PRN [place] and Percocet as well as individual orders for IV morphine 2. All narcotics were discontinued yesterday due to changes in mental status. Currently symptoms are being managed with PRN acetaminophen which has been administered 3 times in the past 24 hours. Patient's does not feel the patient's pain is being managed. May consider starting the patient on low dose methadone such as 2mg PO either q8 hours or q12 hours at some point. * Symptom management-debility: Patient lives with her daughter and spouse who state she was relatively independent prior to her recent decline that started in early June,. She Is blind and deaf in her right ear but was able to "furniture walk" around the house. She has been hospitalized 3 times in the past 6 weeks; her endorses an acute decline since that time. * Symptom management-encephalopathy: New onset dementia versus Delirium versus Hepatic encephalopathy. Ammonia was elevated; patient received lactulose. Consider starting the patient on a low-dose of Seroquel or Risperidone at bedtime. * Palliative care will continue to follow this patient throughout her hospitalization to establish trust, assist with symptom management and clarification of medical treatment goals. Thank you for the opportunity to participate in the care of Ms. Melton. . Attestation To help prompt me to consider important information that might be impacting today's encounter and assessment, information from prior notes written by myself or my colleagues may have been "brought forward" into today's note. My signature on this note, however, is an attestation that I personally performed the exam, history, and/or decision-making noted today, and, unless otherwise indicated, the interactions with patient, family, and staff as well as the review of records all occurred today. I also attest that the listed assessment and stated plan reflect my best clinical judgment today based on the combination of historical information, prior notes, and today's exam/ interactions. When time spent is documented, it refers only to time spent today by the signer, or if indicated, combined time spent today by collaborating physician/nurse practitioner. . Josie Michael Aug 06, 2017 11:55
--- NOTE | 2017-08-06 15:03 | HHI.PR ---
Subjective Remarks Difficult historian. As I entered the room the patient appeared to be moaning, moving her head side to side. at bedside. Patient is hard of hearing but I was able to get her attention. When I asked about pain, she denies but when I asked about discomfort, she admitted to abdominal discomfort, especially after eating. She barely touched her lunch. Her believes she does not want to admit she is in pain because she wants to be able to go home. met with palliative care and agreed to meet with Hospice. Objective Vitals Vital Signs Date Time Temp Pulse Resp B/P (MAP) Pulse Ox O2 Delivery O2 Flow Rate FiO2 08/06/17 12:08 97.8 78 20 152/83 (106) 95 08/06/17 12:00 78 08/06/17 08:32 97.4 78 20 145/80 (101) 98 08/06/17 08:00 75 08/06/17 05:06 97.3 80 20 155/73 (100) 92 08/06/17 04:00 97.3 80 20 155/73 (100) 92 08/06/17 00:00 98.3 82 18 152/91 (111) 90 08/05/17 20:00 97.1 80 20 163/83 (109) 92 08/05/17 16:00 97.0 83 22 131/86 (101) 94 I/O 08/05/17 08/05/17 08/05/17 08/06/17 08/06/17 08/06/17 06:59 14:59 22:59 06:59 14:59 22:59 Intake Total 220 ml 600 ml 120 ml 240 ml Output Total 400 ml Balance -180 ml 600 ml 120 ml 240 ml Intake Oral 220 ml 600 ml 120 ml 240 ml Output Urine Total 400 ml # Voids 5 1 # Bowel Movements 0 2 0 Result Diagram: 08/06/17 0737 08/06/17 0737 Objective Remarks GENERAL: Elderly female in no apparent distress. See subjective findings above. CARDIOVASCULAR: Normal rate and regular rhythm without murmurs, gallops, or rubs. RESPIRATORY: Good respiratory efforts. Breath sounds equal and clear to auscultation bilaterally. GASTROINTESTINAL: Abdomen soft, non-tender, non-distended. Normal active bowel sounds MUSCULOSKELETAL: Extremities without cyanosis, or edema. Status post right midfoot amputation NEURO: Alert. Normal speech. Some intermittent confusion. Easily falls asleep. PSYCH: Calm. Procedures abdominal angiogram. A/P Assessment and Plan 71-year-old female who presented with abdominal pain and elevated LFT's. MRCP shows gallstone but no common duct obstruction. 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 Patient has been followed by GI and General surgery. Per General surgery, the patient is a poor surgical candidate. the patient's symptoms likely secondary to mesenteric ischemia and recommends palliative care. Long discussion with the patient's today about her declining course over the past year and de escalating care. We discussed Hospice. They are more concerned about comfort for the patient. Also discussed with palliative care. Hospice consulted to meet with the family. Patient also has acute on chronic systolic heart failure, waxing and waning mental status likely secondary to hepatic encephalopathy. Difficult to assess her true level of pain at times. Abdominal pain with elevated LFT's - Per General surgery, pain likely related to mesenteric ischemia and has been chronic and worsening. - Palliative care following - Add Oxycodone PRN. Discontinue Tylenol. - Discussed with , He was concerned about pain medication contributing to her mental status decline but he is now more focused on comfort care. - AST and ALT improved but Bilirubin still elevated. Delirium vs hepatic encephalopathy. Ammonia elevated: Much improved when patient took Lactulose and had bowel movement. Wax and wanes -Monitor neuro status. Lactulose ordered. Encouraged patient to try taking Lactulose History of PE and DVT; Resume Eliquis since no further procedures planned. Acute on chronic systolic CHF: BNP elevated with +2 edema in the lower extremity. Transition to oral Lasix today. She is not eating or drinking much and LE edema has improved. Stable form a respiratory standpoint. CKD: Unclear what her baseline is - Renal functions stable - Continue to monitor. Avoid nephrotoxins. UTI: Misty - This could be colonization but Given her mental status, will treat with Fluconazole. DVT prophylaxis; Eliquis Discharge Planning Awaiting Hospice consult Cinthya Salinas MD Aug 06, 2017 15:03
[2017-08-06] MEDS: QUEtiapine FUMARATE 25 MG TAB PO SCH (20:41)
[2017-08-06] MEDS: ATORVASTATIN 10 MG TAB PO SCH (20:41)
[2017-08-07] VITALS: PULSE 62
[2017-08-07 04:00] VITALS: BP 130/73; PULSE 65; PULSE 68; RESP 19; TEMP 98; O2SAT 100
[2017-08-07] MEDS: PANTOPRAZOLE SODIUM 40 MG VIAL IV PUSH SCH ×2 (04:11→16:25)
[2017-08-07 08:00] VITALS: BP 119/58; PULSE 56; PULSE 62; RESP 19; TEMP 97.2; O2SAT 94
[2017-08-07] MEDS: FUROSEMIDE 40 MG TAB PO SCH (10:24)
[2017-08-07] MEDS: FLUCONAZOLE 200 MG TAB PO SCH (10:24)
[2017-08-07] MEDS: CLOPIDOGREL 75 MG TAB PO SCH (10:24)
[2017-08-07] MEDS: CARVEDILOL 3.125 MG TAB PO SCH ×2 (10:24→21:12)
[2017-08-07] MEDS: DOCUSATE SODIUM 50 MG/SENNA 8.6 MG TAB PO SCH ×2 (10:24→21:00)
[2017-08-07] MEDS: APIXABAN 2.5 MG TABLET PO SCH ×2 (10:25→21:12)
[2017-08-07] MEDS: LACTULOSE SYRUP 20 GM/30 ML CUP PO SCH (10:25)
[2017-08-07] MEDS: SPIRONOLACTONE 25 MG TAB PO SCH (10:25)
[2017-08-07 11:17] LABS: ALBUMIN 2.8 GM/DL (3.4-5.0); BICARBONATE 31.1 MEQ/L (21.0-32.0); CALCIUM 8.3 MG/DL (8.5-10.1); CREATININE 1.36 MG/DL (0.50-1.00)
[2017-08-07 11:18] LABS: DIRECT BILIRUBIN ADULT 1.1 MG/DL (0.0-0.2)
[2017-08-07 11:20] LABS: INDIRECT BILIRUBIN 0.9 MG/DL (0.0-0.8); TOTAL PROTEIN 5.1 GM/DL (6.4-8.2)
[2017-08-07 12:00] VITALS: BP 139/72; PULSE 71; PULSE 72; RESP 19; TEMP 97.3; O2SAT 97
[2017-08-07 16:00] VITALS: BP 138/76; PULSE 68; RESP 19; TEMP 97.3; O2SAT 100
[2017-08-07] MEDS ORDERED: POTASSIUM CHLORIDE 10 MEQ CONTROLLED RELEASE TAB PO ONE (18:30)
[2017-08-07] MEDS ORDERED: POTASSIUM CHLORIDE 25 MEQ EFFERVESCENT TAB PO ONE (19:00)
--- NOTE | 2017-08-07 19:53 | HHI.PR ---
Subjective Remarks afebrile K low daughter at bedside c/o abdominal discomfort. Objective Vitals Vital Signs Date Time Temp Pulse Resp B/P (MAP) Pulse Ox O2 Delivery O2 Flow Rate FiO2 08/07/17 16:00 97.3 68 19 138/76 (96) 100 08/07/17 12:00 97.3 71 19 139/72 (94) 97 08/07/17 08:00 97.2 56 19 119/58 (78) 94 08/07/17 07:00 Nasal Cannula 2.00 08/07/17 04:00 65 08/07/17 04:00 98.0 68 19 130/73 (92) 100 08/07/17 00:00 62 08/07/17 00:00 Room Air 08/06/17 20:00 76 08/06/17 20:00 97.1 70 20 143/68 (93) 100 I/O 08/06/17 08/06/17 08/06/17 08/07/17 08/07/17 08/07/17 07:00 15:00 23:00 07:00 15:00 23:00 Intake Total 240 ml 600 ml 450 ml 500 ml 960 ml Balance 240 ml 600 ml 450 ml 500 ml 960 ml Intake Oral 240 ml 600 ml 450 ml 500 ml 960 ml # Voids 1 2 1 2 1 # Bowel Movements 0 2 1 0 Result Diagram: 08/06/17 0737 08/07/17 0950 Imaging Last Impressions Chest X-Ray 08/05/17 0000 Signed Impressions: Service Date/Time: Saturday, August 05, 2017 10:35 - CONCLUSION: 1. Bibasilar atelectatic changes with possible small associated pleural effusions. 2. Heart size is borderline prominent with possible element of vascular congestion or volume overload. This is slightly worse when compared to the prior Rosalio Chavez MD Celiac/Hepatic Arteriogram 08/01/17 1413 Signed Impressions: Service Date/Time: July 11:36 - CONCLUSION: 1. Widely patent patent superior mesenteric artery with large collateral formation opacifying the site artery distribution characteristic of long-standing chronic process. 2. Complete occlusion of the celiac axis 3. Stenting was not performed Herman Rodríguez MD Abdomen/Pelvis CT 07/30/17 0928 Signed Impressions: Service Date/Time: Sunday, July 30, 2017 10:02 - CONCLUSION: 1. Cholelithiasis. 2. Small bilateral pleural effusions and slight anasarca. 3. Uterine fibroids. 4. Chronic episodic changes of multiple visceral arteries and not changed K. Taj Fang MD Hepatobiliary Scan Nuclear Medicine 07/30/17 0000 Signed Impressions: Service Date/Time: Sunday, July 30, 2017 21:57 - CONCLUSION: 1. Lack of visualization of the bowel concerning for common bile duct obstruction. Silvestre Gallego Jr., MD Cholangiopancreatography MRI 07/30/17 0000 Signed Impressions: Service Date/Time: Sunday, July 30, 2017 16:41 - CONCLUSION: 1. Cholelithiasis 2. No evidence of common duct stone Herman Rodríguez MD Objective Remarks GENERAL: Elderly female in no apparent distress. See subjective findings above. CARDIOVASCULAR: Normal rate and regular rhythm without murmurs, gallops, or rubs. RESPIRATORY: Good respiratory efforts. Breath sounds equal and clear to auscultation bilaterally. GASTROINTESTINAL: Abdomen soft, non-tender, non-distended. Normal active bowel sounds MUSCULOSKELETAL: Extremities without cyanosis, or edema. Status post right midfoot amputation NEURO: Alert. Normal speech. Some intermittent confusion. Easily falls asleep. PSYCH: Calm. Procedures abdominal angiogram. A/P Assessment and Plan 1-year-old female who presented with abdominal pain and elevated LFT's. MRCP shows gallstone but no common duct obstruction. 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 Patient has been followed by GI and General surgery. Per General surgery, the patient is a poor surgical candidate. the patient's symptoms likely secondary to mesenteric ischemia and recommends palliative care. Long discussion with the patient's about her declining course over the past year and de escalating care. We discussed Hospice. They are more concerned about comfort for the patient. Also discussed with palliative care. Hospice consulted to meet with the family. Patient also has acute on chronic systolic heart failure, waxing and waning mental status likely secondary to hepatic encephalopathy. Difficult to assess her true level of pain at times. Abdominal pain with elevated LFT's - Per General surgery, pain likely related to mesenteric ischemia and has been chronic and worsening. - Palliative care following - Add Oxycodone PRN. Discontinue Tylenol. - Discussed with , He was concerned about pain medication contributing to her mental status decline but he is now more focused on comfort care. - AST and ALT improved but Bilirubin still elevated. Delirium vs hepatic encephalopathy. Ammonia elevated: Much improved when patient took Lactulose and had bowel movement. Wax and wanes -Monitor neuro status. Lactulose ordered. Encouraged patient to try taking Lactulose History of PE and DVT; Resume Eliquis since no further procedures planned. Acute on chronic systolic CHF: BNP elevated with +2 edema in the lower extremity. Transition to oral Lasix today. She is not eating or drinking much and LE edema has improved. Stable form a respiratory standpoint. 08/07 Continue oral Lasix. CKD: Unclear what her baseline is - Renal functions stable - Continue to monitor. Avoid nephrotoxins. UTI: Misty - This could be colonization but Given her mental status,Continue Fluconazole DVT prophylaxis; Eliquis Discharge Planning Pending hospice consult. Maximino Keyes MD Aug 07, 2017 19:53
[2017-08-07 20:00] VITALS: BP 131/80; PULSE 68; PULSE 78; RESP 16; O2SAT 97
[2017-08-07] MEDS: QUEtiapine FUMARATE 25 MG TAB PO SCH (21:12)
[2017-08-07] MEDS: ATORVASTATIN 10 MG TAB PO SCH (21:12)
[2017-08-08] VITALS (7 sets, daily range): BP systolic 134–141; BP diastolic 77–84; PULSE 68–101; RESP 16–18; TEMP 97.1–97.8; O2SAT 97–100
[2017-08-08] MEDS: PANTOPRAZOLE SODIUM 40 MG VIAL IV PUSH SCH ×2 (03:17→17:16)
[2017-08-08] MEDS: SPIRONOLACTONE 25 MG TAB PO SCH (09:25)
[2017-08-08] MEDS: CARVEDILOL 3.125 MG TAB PO SCH (09:25)
[2017-08-08] MEDS: APIXABAN 2.5 MG TABLET PO SCH (09:25)
[2017-08-08] MEDS: CLOPIDOGREL 75 MG TAB PO SCH (09:25)
[2017-08-08] MEDS: DOCUSATE SODIUM 50 MG/SENNA 8.6 MG TAB PO SCH (09:26)
[2017-08-08] MEDS: FLUCONAZOLE 200 MG TAB PO SCH (09:26)
[2017-08-08] MEDS: LACTULOSE SYRUP 20 GM/30 ML CUP PO SCH (09:26)
[2017-08-08] MEDS: FUROSEMIDE 40 MG TAB PO SCH (09:26)
[2017-08-08 14:14] LABS: BICARBONATE 34.2 MEQ/L (21.0-32.0); CALCIUM 8.5 MG/DL (8.5-10.1); CREATININE 1.31 MG/DL (0.50-1.00)
--- NOTE | 2017-08-08 16:33 | HHI.DS ---
Discharge Summary Admission Date Aug 01, 2017 at 13:37 Admitting Diagnosis Intractable abdominal pain, elevated LFTs Procedures abdominal angiogram. Brief History - From Admission 71 years old morbidly obese female presented to the ED complaining of chronically unbearable abdominal pain mostly in the epigastric area but can generalized. I came to see the patient she was oriented he got 4 mg of morphine which make her slightly drowsy she was unable to give good history, her was at the bedside he was in the best historian either, patient has a history of chronic abdominal pain she has been seen recently by vascular surgery with a possible SMA syndrome but she was told she wasn't a candidate for surgical intervention.. Patient visited [facility] in [place] on a for the same complaint her symptoms was worsening since August 2016. 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 Most of the history was obtained from the as I mentioned above, patient was able to open her eyes she was moaning but mostly drowsy. The also reportedH/O CHF, patient does have edema in her leg CBC/BMP: 08/06/17 0737 08/08/17 1313 Significant Findings Laboratory Tests Test 08/05/17 21:10 08/06/17 07:37 08/07/17 09:50 08/08/17 13:13 Blood Urea Nitrogen 21 MG/DL (7-18) 23 MG/DL (7-18) 23 MG/DL (7-18) 22 MG/DL (7-18) Creatinine 1.45 MG/DL (0.50-1.00) 1.49 MG/DL (0.50-1.00) 1.36 MG/DL (0.50-1.00) 1.31 MG/DL (0.50-1.00) Random Glucose 113 MG/DL (74-106) 117 MG/DL (74-106) Total Protein 6.1 GM/DL (6.4-8.2) 6.1 GM/DL (6.4-8.2) 5.1 GM/DL (6.4-8.2) Albumin 3.2 GM/DL (3.4-5.0) 3.0 GM/DL (3.4-5.0) 2.8 GM/DL (3.4-5.0) Alkaline Phosphatase 208 U/L (45-117) 203 U/L (45-117) 165 U/L (45-117) Total Bilirubin 2.9 MG/DL (0.2-1.0) 3.0 MG/DL (0.2-1.0) 2.0 MG/DL (0.2-1.0) Potassium Level 3.4 MEQ/L (3.5-5.1) 3.1 MEQ/L (3.5-5.1) 3.4 MEQ/L (3.5-5.1) Estimat Glomerular Filtration Rate 36 ML/MIN (>89) 34 ML/MIN (>89) 38 ML/MIN (>89) 40 ML/MIN (>89) Red Blood Count 3.76 MIL/MM3 (4.00-5.30) Mean Corpuscular Volume 102.5 FL (80.0-100.0) Red Cell Distribution Width 22.8 % (11.6-17.2) Prothrombin Time 22.8 SEC (9.8-11.6) Direct Bilirubin 1.4 MG/DL (0.0-0.2) 1.1 MG/DL (0.0-0.2) Chloride Level 97 MEQ/L (98-107) Indirect Bilirubin 1.6 MG/DL (0.0-0.8) 0.9 MG/DL (0.0-0.8) Calcium Level 8.3 MG/DL (8.5-10.1) B-Type Natriuretic Peptide 4998 PG/ML (0-100) Carbon Dioxide Level 34.2 MEQ/L (21.0-32.0) PE at Discharge GENERAL: Elderly female in no apparent distress. See subjective findings above. CARDIOVASCULAR: Normal rate and regular rhythm without murmurs, gallops, or rubs. RESPIRATORY: Good respiratory efforts. Breath sounds equal and clear to auscultation bilaterally. GASTROINTESTINAL: Abdomen soft, non-tender, non-distended. Normal active bowel sounds MUSCULOSKELETAL: Extremities without cyanosis, or edema. Status post right midfoot amputation NEURO: Alert. Normal speech. Some intermittent confusion. Easily falls asleep. PSYCH: Calm. Pt Condition on Discharge: Deteriorating Discharge Disposition: Hospice/Med Facility Discharge Instructions DIET: Follow Instructions for: As Tolerated, No Restrictions Activities you can perform: Continue Bedrest Maximino Keyes MD Aug 08, 2017 16:32
== END 2017-08-08 18:17 | disposition hospice, inpatient (51) | DRG 391 ==
LOC: NEPC 08:56 → NEDA 13:55 → NEPGCP 17:05 → OBSVTOIN 08-01 13:37 → N04A 08-02 19:36
PROVIDERS: ADMIT Hospitalist; ATTEND Hospitalist
PROC: B41B1ZZ Fluoroscopy of Other Intra-Abdominal Arteries using Low Osmolar Contrast (ICD-10-PCS; principal; 2017-08-01)
PROC: B4141ZZ Fluoroscopy of Superior Mesenteric Artery using Low Osmolar Contrast (ICD-10-PCS; 2017-08-01)
DX: I77.4 Celiac artery compression syndrome (principal); I50.23 Acute on chronic systolic (congestive) heart failure; K72.90 Hepatic failure, unspecified without coma; E11.9 Type 2 diabetes mellitus without complications; E66.01 Morbid (severe) obesity due to excess calories; E86.0 Dehydration; B37.49 Other urogenital candidiasis; E78.5 Hyperlipidemia, unspecified; Z68.31 Body mass index [BMI] 31.0-31.9, adult; I25.10 Atherosclerotic heart disease of native coronary artery without angina pectoris; I73.9 Peripheral vascular disease, unspecified; Z89.431 Acquired absence of right foot; Z79.02 Long term (current) use of antithrombotics/antiplatelets; Z86.711 Personal history of pulmonary embolism; Z86.718 Personal history of other venous thrombosis and embolism; R79.89 Other specified abnormal findings of blood chemistry; K80.20 Calculus of gallbladder without cholecystitis without obstruction; N18.9 Chronic kidney disease, unspecified; R41.0 Disorientation, unspecified; H91.90 Unspecified hearing loss, unspecified ear; Z51.5 Encounter for palliative care
CPT/HCPCS: 36245; 36246; 71045; 74176; 74181; 75726; 75774; 76377; 76937; 78226; 80048; 80053; 80076; 81001; 82140; 82948; 83690; 83880; 85025; 85027; 85610; 85730; 87086; 87106; 93005; 96365; 96375; 96376; 99152; 99153; A9537; C1760; C1769; C1887; C1894; C9113; G0269; G0378; J0696; J1650; J1815; J1940; J2250; J2270; J3010; Q9967